=== PATIENT | female | born 1960 | race American Indian/Alaskan Native ===

== ENCOUNTER 2016-11-03 01:30 | Inpatient (IN) | payer OTHER, BC ==
[2016-11-03 01:57] VITALS: BMI 27.9
--- NOTE | 2016-11-03 02:30 | ED PDOC ---
Arrival/HPI - General Chief Complaint: Psychiatric Evaluation Time Seen by Provider: 11/03/16 02:29 Historian: Patient - History of Present Illness Narrative History of Present Illness (Text): 11/03/16 02:30 Saida Linares is a 56 year old female, whose past medical history includes hypertension, diabetes, and depression, who presents to the ED complaining of depression. Patient states she has been depressed for a while and has been expressing suicidal ideation. Patient states she has been thinking about overdosing on her medication. Patient denies any homicidal ideation, fever, chills, chest pain, shortness of breath, nausea, vomiting, diarrhea, urinary symptoms, back pain, neck pain, headache, dizziness, or any other complaints. Time/Duration: Other (few days) Symptom Onset: Gradual Symptom Course: Unchanged Activities at Onset: Rest, Light Context: Home Past Medical History - Provider Review Nursing Documentation Reviewed: Yes - Infectious Disease Hx of Infectious Diseases: None - Tetanus Immunization Tetanus Immunization: Unknown - Cardiac Hx Hypertension: Yes - Pulmonary Hx Asthma: No - Neurological Hx Transient Ischemic Attacks (TIA): Yes - HEENT Hx HEENT Disorder: No - Renal Hx Renal Disorder: No - Endocrine/Metabolic Hx Endocrine Disorders: Yes Hx Diabetes Mellitus Type 2: Yes Other/Comment: thyroid nodule right side - Hematological/Oncological Hx Anemia: Yes (with transfusion) - Integumentary Hx Dermatological Disorder: No - Musculoskeletal/Rheumatological Hx Falls: No - Gastrointestinal Hx Gastrointestinal Disorders: Yes Hx Gastroesophageal Reflux: Yes - Genitourinary/Gynecological Hx Genitourinary Disorders: Yes Hx Urinary Tract Infection: Yes - Psychiatric Hx Anxiety: Yes Hx Depression: Yes Hx Substance Use: No - Surgical History Hx Section: Yes Hx Hysterectomy: Yes Other/Comment: toe surgery, - Anesthesia Hx Anesthesia: Yes Hx Anesthesia Reactions: Yes (difficulty awakening,combative) Hx Malignant Hyperthermia: No - Suicidal Assessment Feels Threatened In Home Enviroment: No Family/Social History - Physician Review Nursing Documentation Reviewed: Yes Family/Social History: No Known Family HX Smoking Status: Former Smoker Hx Alcohol Use: Yes (SOCIAL) Hx Substance Use: No Allergies/Home Meds Allergies/Adverse Reactions: Allergies acetaminophen [From Percocet] Adverse Reaction (Intermediate, Verified 11/03/16 18:36) VOMITING oxycodone HCl [From Percocet] Adverse Reaction (Intermediate, Verified 11/03/16 18:36) VOMITING Home Medications: Home Meds Medication Instructions Recorded Confirmed cloNIDine 0.2 mg/24 hr 1 patch TOP QD7 10/17/16 11/03/16 [catapres-TTS2 0.2 mg/24 hr] Insulin Glargine, Recombina 30 units SQ DAILY 11/03/16 11/03/16 [Lantus] Insulin Lispro [humALOG] 1 2000 SQ DAILY 11/03/16 11/03/16 Telmisartan/Amlodipine [Twynsta 1 tab PO DAILY 11/03/16 11/03/16 80-5 mg Tablet] Review of Systems - Physician Review All systems were reviewed & negative as marked: Yes - Review of Systems Constitutional: Normal. absent: Fevers Eyes: Normal ENT: Normal Respiratory: Normal. absent: SOB, Cough Cardiovascular: Normal. absent: Chest Pain Gastrointestinal: Normal. absent: Abdominal Pain, Diarrhea, Nausea, Vomiting Genitourinary Female: Normal. absent: Dysuria, Frequency, Hematuria, Urine Output Changes Musculoskeletal: Normal. absent: Back Pain, Neck Pain Skin: Normal. absent: Rash Neurological: Normal. absent: Headache, Dizziness Endocrine: Normal Hemo/Lymphatic: Normal Psychiatric: Depression, Suicidal Ideation Physical Exam Vital Signs Reviewed: Yes Vital Signs Temp Pulse Resp BP Pulse Ox 11/03/16 05:34 79 14 154/95 H 99 11/03/16 02:00 98 F 83 16 125/95 H 98 Temperature: Afebrile Blood Pressure: Normal Pulse: Regular Respiratory Rate: Normal Appearance: Positive for: Well-Appearing, Non-Toxic, Comfortable Pain Distress: None Mental Status: Positive for: Alert and Oriented X 3 - Systems Exam Head: Present: Atraumatic, Normocephalic Pupils: Present: PERRL Extroacular Muscles: Present: EOMI Conjunctiva: Present: Normal Mouth: Present: Moist Mucous Membranes Neck: Present: Normal Range of Motion Respiratory/Chest: Present: Clear to Auscultation, Good Air Exchange. No: Respiratory Distress, Accessory Muscle Use Cardiovascular: Present: Regular Rate and Rhythm, Normal S1, S2. No: Murmurs Abdomen: Present: Normal Bowel Sounds. No: Tenderness, Distention, Peritoneal Signs Back: Present: Normal Inspection Upper Extremity: Present: Normal Inspection. No: Cyanosis, Edema Lower Extremity: Present: Normal Inspection. No: Edema Neurological: Present: GCS=15, CN II-XII Intact, Speech Normal Skin: Present: Warm, Dry, Normal Color. No: Rashes Psychiatric: Present: Alert, Oriented x 3, Normal Insight, Normal Concentration Medical Decision Making ED Course and Treatment: 11/03/16 02:30 Impression: 56 year old female complaining of depression with suicidal ideation. Differential Diagnosis include but are not limited to: depression Plan: -- EKG -- Chest X-ray -- Labs, alcohol level -- Urinalysis, urine drug screen -- Reassess and disposition Prior Visits: Notes and results from previous visits were reviewed. On 10/17/2016, pt was seen in the ED for anterior chest wall pain. Pt admitted to the hospital for further evaluation. Progress Notes: Reviewed EKG, NSR at [address] bpm[address] Non-specific ST/T wave changes. 11/03/16 03:30 Reviewed labs, negative tox screen, alcohol < 10. Reviewed radiology, Chest X-ray shows no active disease. Pt medically cleared for PES evaluation. 11/03/16 05:11 Pt seen and evaluated by PES worker Roxanne, who discussed case with psychiatrist medical office receptionist assistant. Pt will be admitted to Behavioral Health for major depressive disorder. Pt in stable condition. Pt agreeable with plan. - Lab Interpretations Lab Results: 11/03/16 02:40 11/03/16 02:40 Lab Results 11/03/16 02:40: WBC 6.7, RBC 4.51, Hgb 12.4, Hct 36.8, MCV 81.6, MCH 27.5, MCHC 33.7, RDW 13.4, Plt Count 241, MPV 10.3, Gran % 54.8, Lymph % (Auto) 32.6, [place] % (Auto) 8.6 H, Eos % (Auto) 3.4, Baso % (Auto) 0.6, Gran # 3.69, Lymph # 2.2, [place] # 0.6, Eos # 0.2, Baso # 0.04, Sodium 137, Potassium 4.1, Chloride 97, Carbon Dioxide 29, Anion Gap 15, BUN 16, Creatinine 0.7, Est GFR ( Amer) > 60, Est GFR (Non-Af Amer) > 60, Random Glucose 279 H, Calcium 9.3, Total Bilirubin 0.5, AST 21, ALT 17, Alkaline Phosphatase 133, Total Protein 7.5, Albumin 4.0, Globulin 3.5, Albumin/Globulin Ratio 1.2, Urine Color Yellow, Urine Appearance Clear, Urine pH 6.5, Ur Specific [place] 1.015, Urine Protein Negative, Urine Glucose (UA) >=1000, Urine Ketones Negative, Urine Blood Negative, Urine Nitrate Negative, Urine Bilirubin Negative, Urine Urobilinogen 0.2, Ur Leukocyte Esterase Negative, Salicylates < 1 L, Urine Opiates Screen Negative, Urine Methadone Screen Negative, Acetaminophen < 10.0 L, Ur Barbiturates Screen Negative, Ur Phencyclidine Scrn Negative, Ur Amphetamines Screen Negative, U Benzodiazepines Scrn Negative, U Oth Cocaine Metabols Negative, U Cannabinoids Screen Negative, Alcohol, Quantitative < 10 I have reviewed the lab results: Yes - RAD Interpretation Radiology Orders: 11/03/16 02:36 CHEST PORTABLE [RAD] Stat Toucher Up: ED Physician - EKG Interpretation Interpreted by ED Physician: Yes Type: 12 lead EKG - Medication Orders Current Medication Orders: Amlodipine Besylate (Norvasc) 10 mg PO DAILY [facility] Last Admin: 11/05/16 08:30 Dose: 10 MG MAR Pulse and Blood Pressure Document 11/05/16 08:30 RGO (Rec: 11/05/16 08:30 RGO [id number]) Pulse Pulse Rate (60-90) 79 Blood Pressure Blood Pressure (100/60-150/90) 120/78 Atorvastatin Calcium (Lipitor) 20 mg PO DIN [facility] Last Admin: 11/05/16 17:05 Dose: 20 MG Clonidine HCl (Catapres-Tts2 0.2 Mg/24 Hr) 1 patch TD Q7D@1000 [facility] Last Admin: 11/05/16 20:19 Dose: Duloxetine HCl (Cymbalta) 40 mg PO DAILY [facility] Insulin Detemir (Levemir) 35 unit SC HS [facility] Last Admin: 11/05/16 23:36 Dose: 35 UNIT Subcutaneous Administrations Document 11/05/16 23:36 [facility] (Rec: 11/05/16 23:36 LV [id number]) Injection Site MAR Injection Site Right Arm Charges for Administration # of Subcutaneous Administrations 1 Insulin Lispro Protam/Lispro Human (Humalog Mix 75/25) 18 units SC ACBD [facility] Lorazepam (Ativan) 0.5 mg PO AMHS [facility] PRN Reason: Protocol Last Admin: 11/05/16 22:02 Dose: 0.5 MG Behavioural Document 11/05/16 22:02 LV (Rec: 11/05/16 22:02 [id number] Maintenance Maintenance Dose Yes Re-Assess: Reassess Psych Meds Document 11/05/16 23:02 TW (Rec: 11/05/16 23:24 TW [id number]) Reassess Psych Med Effective Losartan Potassium (Cozaar) 100 mg PO DAILY [facility] Last Admin: 11/05/16 08:29 Dose: 100 MG Pregabalin (Lyrica) 100 mg PO [facility] Last Admin: 11/05/16 22:02 Dose: 100 MG Trazodone HCl (Desyrel) 50 mg PO [facility] Last Admin: 11/05/16 22:02 Dose: 50 MG Discontinued Medications Amlodipine Besylate (Norvasc) 5 mg PO DAILY [facility] Last Admin: 11/03/16 11:12 Dose: 5 MG MAR Pulse and Blood Pressure Document 11/03/16 11:12 RGO (Rec: 11/03/16 11:13 RGO [id number]) Pulse Pulse Rate (60-90) 82 Blood Pressure Blood Pressure (100/60-150/90) 163/105 Duloxetine HCl (Cymbalta) 20 mg PO DAILY [facility] Last Admin: 11/04/16 08:31 Dose: 20 MG Duloxetine HCl (Cymbalta) 30 mg PO DAILY [facility] Last Admin: 11/05/16 08:31 Dose: 30 MG Home Med (*Refrigerator Open) Confirm Administered Dose 1 unit XX .STK-MED ONE Stop: 11/03/16 06:11 Insulin Detemir (Levemir) 30 unit SC [facility] Last Admin: 11/04/16 22:17 Dose: 30 UNIT Subcutaneous Administrations Document 11/04/16 22:17 DCP (Rec: 11/04/16 22:17 DCP [id number]) Charges for Administration # of Subcutaneous Administrations 1 Insulin Human Lispro (Humalog) 15 units SC DAILY [facility] Last Admin: 11/03/16 11:13 Dose: 15 UNITS Subcutaneous Administrations Document 11/03/16 11:13 RGO (Rec: 11/03/16 11:13 RGO [id number]) Injection Site MAR Injection Site Left Deltoid Charges for Administration # of Subcutaneous Administrations 1 Insulin Lispro Protam/Lispro Human (Humalog Mix 75/25) 10 units SC ACBD [facility] Last Admin: 11/05/16 17:07 Dose: 10 UNIT MAR Blood Glucose Document 11/05/16 17:07 RGO (Rec: 11/05/16 17:08 RGO [id number]) Blood Glucose Finger Stick Blood Glucose (70-120) 283 Subcutaneous Administrations Document 11/05/16 17:07 RGO (Rec: 11/05/16 17:08 RGO [id number]) Injection Site MAR Injection Site Left Deltoid Charges for Administration # of Subcutaneous Administrations 1 Lorazepam (Ativan) 0.5 mg PO TID [facility] PRN Reason: Protocol Last Admin: 11/04/16 14:20 Dose: Not Given Non-Admin Reason: Patient Asleep Zolpidem Tartrate (Ambien) 5 mg PO STAT [facility] PRN Reason: Protocol Stop: 11/05/16 01:44 Last Admin: 11/05/16 01:51 Dose: 5 MG Behavioural Document 11/05/16 01:51 MB (Rec: 11/05/16 01:51 MB [id number]) Maintenance Maintenance Dose Yes Re-Assess: Reassess Psych Meds Document 11/05/16 02:51 MB (Rec: 11/05/16 03:08 MB [id number]) Reassess Psych Med Effective - Scribe Statement The provider has reviewed the documentation as recorded by the Shiva Ortiz Provider Attestation: All medical record entries made by the Stefaniibdeepak were at my direction and personally dictated by me. I have reviewed the chart and agree that the record accurately reflects my personal performance of the history, physical exam, medical decision making, and the department course for this patient. I have also personally directed, reviewed, and agree with the discharge instructions and disposition. Disposition/Present on Arrival - Present on Arrival Any Indicators Present on Arrival: No History of DVT/PE: No History of Uncontrolled Diabetes: Yes Urinary Catheter: No History of Decub. Ulcer: No History Surgical Site Infection Following: None - Disposition Have Diagnosis and Disposition been Completed?: Yes Diagnosis: Depression Disposition: HOSPITALIZED Disposition Time: 05:10 Condition: GOOD
[2016-11-03 02:46] LABS: ADD MANUAL DIFF? NO
[2016-11-03 02:50] LABS: BASO # 0.04 [, K/mm3] (0.0-2.0); BASO % 0.6 % (0.0-3.0); EOS # 0.2 (0.0-0.7); EOS % 3.4 % (1.5-5.0); GRAN # 3.69 (1.4-6.5); GRAN % 54.8 % (50.0-68.0); HEMATOCRIT 36.8 % (36.0-48.0); LYMPH # 2.2 (1.2-3.4); LYMPH % 32.6 % (22.0-35.0); MEAN CELL VOLUME 81.6 fL (80.0-105.0); MEAN CORPUSCULAR HEMOGLOBIN 27.5 pg (25.0-35.0); MEAN CORPUSCULAR HGB CONC 33.7 g/dl (31.0-37.0); MEAN PLATELET VOLUME 10.3 fl (7.0-11.0); MONO # 0.6 (0.1-0.6); MONO % 8.6 % (1.0-6.0); PH,URINE 6.5 (4.7-8.0); PLATELET COUNT 241 [, 10^3/uL] (120.0-450.0); RED CELL DISTRIBUTION WIDTH 13.4 % (11.5-14.5); URINE BILIRUBIN NEGATIVE (NEGATIVE); URINE BLOOD NEGATIVE (NEGATIVE); URINE GLUCOSE (UA) >=1000 mg/dL (NEGATIVE); URINE KETONE NEGATIVE (NEGATIVE); URINE LEUKOCYTE ESTERASE NEGATIVE Leu/uL (NEGATIVE); URINE PROTEIN NEGATIVE mg/dL (<30 mg/dL); URINE UROBILINOGEN 0.2 E.U./dL (<1 E.U./dL); WHITE BLOOD COUNT 6.7 [, 10^3/ul] (4.5-11.0)
[2016-11-03 03:00] LABS: URINE APPEARANCE CLEAR (CLEAR); URINE COLOR YELLOW (YELLOW)
[2016-11-03 03:04] LABS: ALB/GLOB RATIO 1.2 (1.1-1.8); ALKALINE PHOSPHATASE 133 U/L (38-133); ALT/SGPT 17 U/L (7-56); AST/SGOT 21 U/L (15-39); BILIRUBIN,TOTAL 0.5 mg/dL (0.2-1.3); BLOOD UREA NITROGEN 16 mg/dL (7-21); CALCIUM 9.3 mg/dL (8.4-10.5); CARBON DIOXIDE 29 mmol/L (21-33); CHLORIDE 97 mmol/L (95-110); GFR AFRICAN-AMERICAN > 60; GLUCOSE,RANDOM 279 mg/dL (70-110); POTASSIUM 4.1 mmol/L (3.6-5.0); SODIUM 137 mmol/L (132-148); TOTAL PROTEIN 7.5 g/dL (5.8-8.3)
[2016-11-03 05:35] VITALS: O2SAT 99
[2016-11-03 09:02] LABS: CHOLESTEROL 241 mg/dL (130-200)
--- NOTE | 2016-11-03 09:19 | RAD ---
HISTORY: pes COMPARISON: 05/26/2016 FINDINGS: LUNGS: No active pulmonary disease. PLEURA: No significant pleural effusion identified, no pneumothorax apparent. CARDIOVASCULAR: Normal. OSSEOUS STRUCTURES: No significant abnormalities. VISUALIZED UPPER ABDOMEN: Normal. OTHER FINDINGS: None. IMPRESSION: No active disease.
[2016-11-03 09:50] LABS: THYROID STIMULATING HORMONE 1.63 mIU/mL (0.46-4.68)
[2016-11-03] MEDS ORDERED: Insulin Lispro 1 UNITS/0.01 ML SC SCH (10:45)
--- NOTE | 2016-11-03 13:04 | CARD ---
APPROVED REPORT EKG Measurement Heart [id number] <Conclusion> Normal sinus rhythm Voltage criteria for left ventricular hypertrophy Nonspecific T wave abnormality Abnormal ECG
--- NOTE | 2016-11-03 13:20 | CON ---
DATE: 11/03/2016 The patient is a 56-year-old, known to me from multiple previous admissions. She came to Emergency R [facility]om feeling very depressed, suicidal thoughts. The patient states she has been depressed lately dania use of some marital problems at home. Denies any fever or chills. No nausea, vomiting, no diarrhea, no shortness of breath. No urine or bowel problem. Complained of dizzy at times, complained of hea dache at times when she does not sleep well. PAST MEDICAL HISTORY: Significant for: 1. Hypertension. 2. Insulin-dependent diabetes. 3. Hyperlipidemia. The patient was admitted back in 05/2016. At that point, she had stress test done that was unremarka ble. The patient also has history of gastritis and she had endoscopy done in 05/2016, done by Dr. Iban ko, shows mild chronic active gastritis, negative for H. pylori infection. She has gastroesophageal junction epithelium showing mild chronic inflammation, no intestinal metaplasia. ALLERGIES: SHE IS ALLERGIC TO ACETAMINOPHEN AND OXYCODONE. MEDICATIONS AT HOME: She is on telmisartan and amlodipine. She is on clonidine 0.2 every 24 hours. She is on insulin, Lantus 30 units daily. She is on Lyrica 100 mg at bedtime and Humalog as accordi ng to her carb intake. SOCIAL HISTORY: She socially drinks. She was a heavy former smoker. She is , but there are some marital issues. Her was interested in some other woman and there was some court case go ing on and patient does not want to talk about that. PHYSICAL EXAMINATION: GENERAL: She is sleepy, but arousable. VITAL SIGNS: She is afebrile, pulse 82, respirations 20, blood pressure 163/105. LUNGS: Bilateral good airflow, no rhonchi or crackle. HEART: S1, S2 audible. No murmur. ABDOMEN: Soft, nontender, no rebound, no guarding. NEUROLOGIC: She is awake and alert, communicative. LABORATORY EXAMINATION: WBCs 6.7, hemoglobin 12.4, hematocrit 36.8, platelet of 241. Chemistry: So dium 137, potassium 4.1, chloride 97, CO2 29, BUN 16, creatinine 0.7, blood sugar of 251. Her choles terol is 241, LDL is 140. Urinalysis is negative. Urine tox is negative. ASSESSMENT: 1. Depression with suicidal thoughts. 2. Insulin-dependent diabetes. 3. Hypertension. 4. Hyperlipidemia. PLAN: We will start patient on losartan 100 mg daily, amlodipine 10 mg daily and I will start her on fingerstick and start her on her coverage, monitor her blood sugar closely and psych medication will be adjusted by psychiatrist. Goldie Bowen MD cc: [id number] TT: 11/03/2016 13:20:22 Confirmation # [id number] Dictation # [id number]
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
[2016-11-03] MEDS: Insulin Lispro (humaLOG) MIX 75/25(10 ml) SC SCH (17:14)
[2016-11-03] MEDS: Insulin Detemir 100 units/ml Vial (Levemir) SC SCH (22:00)
[2016-11-04] MEDS: Insulin Lispro (humaLOG) MIX 75/25(10 ml) SC SCH ×2 (08:31→17:12)
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
[2016-11-04] MEDS: Insulin Detemir 100 units/ml Vial (Levemir) SC SCH (22:17)
--- NOTE | 2016-11-05 01:52 | CP.PCM.PN ---
Subjective - Date & Time of Evaluation Date of Evaluation: 11/05/16 Time of Evaluation: 01:52 - Subjective Subjective: S:Patient was seen when she was standing by the nursing station. She is requesting a sleeping pill. Has no other complaints. Inspite of receiving ativan 0.5 mg and seroquel , she has not been able to fall asleep. Pertinent medical record was reviewed. O: Last Vital Signs 3 Temp 97.6 F 11/04/16 06:00 Pulse 100 H 11/04/16 16:00 Resp 20 11/04/16 06:00 BP 122/85 11/04/16 16:00 Pulse Ox 99 11/03/16 05:34 Awake, alert, not in distress. Ambulating. LUNGS:Normal breathing pattern. NEURO:Speech normal. A:Adjustment insomnia. P:Ambien 5 mg PO x 1. Objective - Vital Signs/Intake and Output Vital Signs (last 24 hours): Temp Pulse Resp BP Pulse Ox 97.6 F 100 H 20 122/85 99 11/04/16 06:00 11/04/16 16:00 11/04/16 06:00 11/04/16 16:00 11/03/16 05:34 - Medications Medications: Current Medications Amlodipine Besylate (Norvasc) 10 mg PO DAILY [facility] Last Admin: 11/04/16 08:30 Dose: 10 mg Atorvastatin Calcium (Lipitor) 20 mg PO DIN [facility] Last Admin: 11/04/16 17:12 Dose: 20 mg Clonidine HCl (Catapres-Tts2 0.2 Mg/24 Hr) 1 patch TD Q7D@1000 [facility] Duloxetine HCl (Cymbalta) 30 mg PO DAILY [facility] Insulin Detemir (Levemir) 30 unit SC HS [facility] Last Admin: 11/04/16 22:17 Dose: 30 unit Insulin Lispro Protam/Lispro Human (Humalog Mix 75/25) 10 units SC ACBD [facility] Last Admin: 11/04/16 17:12 Dose: 10 unit Lorazepam (Ativan) 0.5 mg PO AMHS [facility] PRN Reason: Protocol Last Admin: 11/04/16 22:16 Dose: 0.5 mg Losartan Potassium (Cozaar) 100 mg PO DAILY [facility] Last Admin: 11/04/16 08:30 Dose: 100 mg Pregabalin (Lyrica) 100 mg PO HS [facility] Last Admin: 03/21/17 22:17 Dose: 100 mg Trazodone HCl (Desyrel) 50 mg PO [facility] Last Admin: 11/04/16 22:16 Dose: 50 mg
[2016-11-05] MEDS: Insulin Lispro (humaLOG) MIX 75/25(10 ml) SC SCH ×2 (08:30→17:07)
--- NOTE | 2016-11-05 15:05 | PCM.PYCHPN ---
Psychiatric Progress Note - Psychiatric Progress Note Patient seen today, length of contact: 30min Patient Chief Complaint: "I am little better, I didn't work on your assignment..." Problems Identified/Issues Discussed: Suicide/ homicide prevention, past psychiatric h/o, current psychiatric symptoms , medical problems, risk/benefits and alternatives of medications, medications compliance, coping strategies, substance abuse h/o, relapse prevention, importance of follow up with psychiatrist and therapist, discharge plan. Medical Problems: DM, HTN, diabetic neuropathy Diagnostic Results: 11/03/16 02:40 11/03/16 02:40 Lab Results 11/04/16 11:48: POC Glucose (mg/dL) 150 H 11/04/16 07:34: POC Glucose (mg/dL) 144 H 11/03/16 21:19: POC Glucose (mg/dL) 244 H 11/03/16 16:13: POC Glucose (mg/dL) 217 H 11/03/16 11:17: POC Glucose (mg/dL) 251 H 11/03/16 08:50: Triglycerides 171 H, Cholesterol 241 H, LDL Cholesterol Direct 140 H, HDL Cholesterol 47, Free T4 1.00, TSH 3rd Generation 1.63, RPR Nonreactive 11/03/16 08:02: POC Glucose (mg/dL) 203 H 11/03/16 02:40: WBC 6.7, RBC 4.51, Hgb 12.4, Hct 36.8, MCV 81.6, MCH 27.5, MCHC 33.7, RDW 13.4, Plt Count 241, MPV 10.3, Gran % 54.8, Lymph % (Auto) 32.6, [place] % (Auto) 8.6 H, Eos % (Auto) 3.4, Baso % (Auto) 0.6, Gran # 3.69, Lymph # 2.2, [place] # 0.6, Eos # 0.2, Baso # 0.04, Sodium 137, Potassium 4.1, Chloride 97, Carbon Dioxide 29, Anion Gap 15, BUN 16, Creatinine 0.7, Est GFR ( Amer) > 60, Est GFR (Non-Af Amer) > 60, Random Glucose 279 H, Calcium 9.3, Total Bilirubin 0.5, AST 21, ALT 17, Alkaline Phosphatase 133, Total Protein 7.5, Albumin 4.0, Globulin 3.5, Albumin/Globulin Ratio 1.2, Urine Color Yellow, Urine Appearance Clear, Urine pH 6.5, Ur Specific [place] 1.015, Urine Protein Negative, Urine Glucose (UA) >=1000, Urine Ketones Negative, Urine Blood Negative, Urine Nitrate Negative, Urine Bilirubin Negative, Urine Urobilinogen 0.2, Ur Leukocyte Esterase Negative, Salicylates < 1 L, Urine Opiates Screen Negative, Urine Methadone Screen Negative, Acetaminophen < 10.0 L, Ur Barbiturates Screen Negative, Ur Phencyclidine Scrn Negative, Ur Amphetamines Screen Negative, U Benzodiazepines Scrn Negative, U Oth Cocaine Metabols Negative, U Cannabinoids Screen Negative, Alcohol, Quantitative < 10 Vital Signs Temp Pulse Resp BP Pulse Ox 11/04/16 08:30 81 141/85 11/04/16 06:00 97.6 F 81 20 141/85 11/03/16 11:12 82 163/105 H 11/03/16 08:02 98.1 F 82 20 163/105 H 11/03/16 05:34 79 14 154/95 H 99 11/03/16 02:00 98 F 83 16 125/95 H 98 Temp Pulse Resp BP Pulse Ox 97.8 F 79 20 120/78 99 11/05/16 07:04 11/05/16 10:59 11/05/16 07:04 11/05/16 10:59 11/03/16 05:34 DSM 5 Symptoms Update: Shortly patient is 56 years old -Danish female, 1 previous psychiatric admission [facility] in May, no history of suicidal attempts, multiple medical issues including diabetes, neuropathy, hysterectomy, brought herself to the hospital for evaluation of depression, feeling of hopelessness, anhedonia, possible suicidal ideation with the plan to overdose on medications. Pt was seen at the hallway presented with improved personal hygiene, wears street clothes, combed her hair. pt's affect was more reactive, pt was not crying. 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 Pt reported her mood is slowly improving, she has some hopes for the future, she reported that she decided to move out of her house and separate from her . "It will be better for all of us", at the same time pt cannot exclude that may be they will look for family sessions in the future, but "for now I want to be in nice and quiet environment". pt denied any intent or plan to hurt self or others, occasionally angry feelings towards her , but no plan or intent. as per staff, pt is withdrawn, more visible in the unit, started to go to groups. self isolating, flat affect. Pt tolerates meds well, no side effects observed or reported. AIMS 0, no EPS. impression: DSM 5 Diagnosis: MDD severe Panic disorder ARNULFO Medication Change: Yes (cymbalta increased) Medical Record Reviewed: Yes Consults ordered or reviewed: pt was seen by medical team. Mental Status Examination - Cognitive Function Orientation: Person, Place, Situation Memory: Intact Attention: Poor (some improvement) Concentration: Poor (some improvement) Association: WNL Fund of Knowledge: WNL - Mood Mood: Depressed, Anxious - Affect Affect: Blunted, Flat - Speech Speech: Appropriate (low volume, slow, underproductive) - Formal Thought Process Formal Thought Process: No Impairment - Suicidal Ideation Suicidal Ideation: No - Homicidal Ideation Homicidal Ideation: No Goal/Treatment Plan - Goal/Treatment Plan Need for Continued Stay: Remain at risks for inpatient hospitalization, Severe depression anxiety, Discharge may exacerbated symptoms, Severe functional impairment Progress Toward Problem(s) and Goals/Treatment Plan: milieu, structure, supportive therapy Cymbalta 40mg daily for MDD and anxiety and neuropathy Trazodone 50mg po hs for insomnia and MDD ativan 0.5mg po tid for anxiety medical consult appreciated SW evalutaion Lyrica 100 mg PO HS for neuropathy the rest of meds up to medical team. will monitor closely Estimated Date of D/C: 11/10/16 (will evaluate on daily basis)
--- NOTE | 2016-11-05 21:04 | PN ---
DATE: 11/05/2016 The patient is patient is 56 years old, seen and examined. Seems to be a little more bright and up. Does not seem to be as depressed, doing well. VITAL SIGNS: She is afebrile, pulse 79, respirations 20, blood pressure 112/67. LUNGS: Bilateral good airflow. No rhonchi or crackle. HEART: S1, S2 audible. No murmur. ABDOMEN: Soft, nontender, no rebound, no guarding. NEUROLOGICALLY: The patient is awake and alert, communicative, ambulatory. Blood sugar was at 12 o'clock 262; in the afternoon it is 283. ASSESSMENT AND PLAN: 1. Major depression secondary to some marital problems. 2. Insulin-dependent diabetes. 3. Hypertension. 4. Hyperlipidemia. 5. Anxiety disorder. 6. Insulin-dependent diabetes, uncontrolled. PLAN: I will increase her insulin coverage from 10-15 prior to breakfast, and 18 units prior to tracey kfast and dinner, and also increase her Levemir also to 35 units at bedtime, and I will follow up blo od sugar closely, and reevaluate the patient in a.m. Psych medication will be adjusted by psychiatri st. Goldie Bowen MD cc: [phone] TT: 11/05/2016 21:03:58 Confirmation # [id number] Dictation # [id number] nadira
[2016-11-05] MEDS: Insulin Detemir 100 units/ml Vial (Levemir) SC SCH (23:36)
[2016-11-06] MEDS: Insulin Lispro (humaLOG) MIX 75/25(10 ml) SC SCH ×2 (08:49→17:08)
--- NOTE | 2016-11-06 12:11 | PCM.PYCHPN ---
Psychiatric Progress Note - Psychiatric Progress Note Patient seen today, length of contact: 30min Patient Chief Complaint: "I feel little better now" Problems Identified/Issues Discussed: Suicide/ homicide prevention, past psychiatric h/o, current psychiatric symptoms , medical problems, risk/benefits and alternatives of medications, medications compliance, coping strategies, substance abuse h/o, relapse prevention, importance of follow up with psychiatrist and therapist, discharge plan. Medical Problems: DM, HTN, diabetic neuropathy Diagnostic Results: 11/03/16 02:40 11/03/16 02:40 Lab Results 11/04/16 11:48: POC Glucose (mg/dL) 150 H 11/04/16 07:34: POC Glucose (mg/dL) 144 H 11/03/16 21:19: POC Glucose (mg/dL) 244 H 11/03/16 16:13: POC Glucose (mg/dL) 217 H 11/03/16 11:17: POC Glucose (mg/dL) 251 H 11/03/16 08:50: Triglycerides 171 H, Cholesterol 241 H, LDL Cholesterol Direct 140 H, HDL Cholesterol 47, Free T4 1.00, TSH 3rd Generation 1.63, RPR Nonreactive 11/03/16 08:02: POC Glucose (mg/dL) 203 H 11/03/16 02:40: WBC 6.7, RBC 4.51, Hgb 12.4, Hct 36.8, MCV 81.6, MCH 27.5, MCHC 33.7, RDW 13.4, Plt Count 241, MPV 10.3, Gran % 54.8, Lymph % (Auto) 32.6, [place] % (Auto) 8.6 H, Eos % (Auto) 3.4, Baso % (Auto) 0.6, Gran # 3.69, Lymph # 2.2, [place] # 0.6, Eos # 0.2, Baso # 0.04, Sodium 137, Potassium 4.1, Chloride 97, Carbon Dioxide 29, Anion Gap 15, BUN 16, Creatinine 0.7, Est GFR ( Amer) > 60, Est GFR (Non-Af Amer) > 60, Random Glucose 279 H, Calcium 9.3, Total Bilirubin 0.5, AST 21, ALT 17, Alkaline Phosphatase 133, Total Protein 7.5, Albumin 4.0, Globulin 3.5, Albumin/Globulin Ratio 1.2, Urine Color Yellow, Urine Appearance Clear, Urine pH 6.5, Ur Specific [place] 1.015, Urine Protein Negative, Urine Glucose (UA) >=1000, Urine Ketones Negative, Urine Blood Negative, Urine Nitrate Negative, Urine Bilirubin Negative, Urine Urobilinogen 0.2, Ur Leukocyte Esterase Negative, Salicylates < 1 L, Urine Opiates Screen Negative, Urine Methadone Screen Negative, Acetaminophen < 10.0 L, Ur Barbiturates Screen Negative, Ur Phencyclidine Scrn Negative, Ur Amphetamines Screen Negative, U Benzodiazepines Scrn Negative, U Oth Cocaine Metabols Negative, U Cannabinoids Screen Negative, Alcohol, Quantitative < 10 Vital Signs Temp Pulse Resp BP Pulse Ox 11/04/16 08:30 81 141/85 11/04/16 06:00 97.6 F 81 20 141/85 11/03/16 11:12 82 163/105 H 11/03/16 08:02 98.1 F 82 20 163/105 H 11/03/16 05:34 79 14 154/95 H 99 11/03/16 02:00 98 F 83 16 125/95 H 98 Temp Pulse Resp BP Pulse Ox 97.8 F 79 20 120/78 99 11/05/16 07:04 11/05/16 10:59 11/05/16 07:04 11/05/16 10:59 11/03/16 05:34 Temp Pulse Resp BP Pulse Ox 98.3 F 87 20 123/75 99 11/06/16 10:15 11/06/16 10:15 11/06/16 10:15 11/06/16 10:15 11/03/16 05:34 DSM 5 Symptoms Update: Shortly patient is 56 years old -[place] female, 1 previous psychiatric admission [facility] in May, no history of suicidal attempts, multiple medical issues including diabetes, neuropathy, hysterectomy, brought herself to the hospital for evaluation of depression, feeling of hopelessness, anhedonia, possible suicidal ideation with the plan to overdose on medications. Pt was seen at the hallway presented with improved personal hygiene, wears street clothes, combed her hair. pt's affect was more reactive, pt was smiling more, pt said that medications what she is taking "helping me very much", pt denied any aggressive feelings towards her , pt said "at times I have feeing of anger, but I don't want to hurt him, I know the consequences, I love my kids and I want to get better". Pt said that her sleep still is not good, pt was on ambien one night, house physician gave it to the pt, pt willing to be on Ambien. Pt reported her mood is slowly improving, she has some hopes for the future, she reported that she decided to move out of her house and separate from her . As per staff pt started to go to groups, more visible in the unit. Pt tolerates meds well, no side effects observed or reported. AIMS 0, no EPS. impression: DSM 5 Diagnosis: MDD severe Panic disorder ARNULFO Medication Change: Yes (ambien started, trazodon d/c) Medical Record Reviewed: Yes Consults ordered or reviewed: pt was seen by medical team. Mental Status Examination - Cognitive Function Orientation: Person, Place, Situation Memory: Intact Attention: Poor (some improvement) Concentration: Poor (some improvement) Association: WNL Fund of Knowledge: WNL - Mood Mood: Depressed ("I feel little better"), Anxious - Affect Affect: Blunted, Flat - Speech Speech: Appropriate (low volume, slow, underproductive) - Formal Thought Process Formal Thought Process: No Impairment - Suicidal Ideation Suicidal Ideation: No - Homicidal Ideation Homicidal Ideation: No Goal/Treatment Plan - Goal/Treatment Plan Need for Continued Stay: Remain at risks for inpatient hospitalization, Severe depression anxiety, Discharge may exacerbated symptoms, Severe functional impairment Progress Toward Problem(s) and Goals/Treatment Plan: milieu, structure, supportive therapy Cymbalta 40mg daily for MDD and anxiety and neuropathy Trazodone d/c Ambien 5mg hs for insomnia ativan 0.5mg po tid for anxiety medical consult appreciated SW evalutaion Lyrica 100 mg PO HS for neuropathy the rest of meds up to medical team. will monitor closely Estimated Date of D/C: 11/10/16 (will evaluate on daily basis)
--- NOTE | 2016-11-06 20:37 | PN ---
DATE: 11/06/2016 The patient is 56 years old, seen and examined. Seems to be much interactive, eating well. States s he feels better than before. PHYSICAL EXAMINATION: VITAL SIGNS: She is afebrile, pulse 87, respirations 20, blood pressure 123/75. LUNGS: Bilateral good airflow, no rhonchi or crackle. HEART: S1, S2 audible. No murmur. ABDOMEN: Soft, nontender, no rebound, no guarding. NEUROLOGIC: She is awake and alert, communicative, ambulatory. ASSESSMENT AND PLAN: 1. Depression. 2. Hypertension. 3. Hyperlipidemia. 4. Insulin-dependent diabetes. 5. Anxiety disorder. Her blood sugar seems to be better. This morning it was 136, in the afternoon it was 199. We will m onitor the evening range and then I will make adjustment in the morning to adjust her insulin accordi ng to her sugar level. I will evaluate patient in a.m. Goldie Bowen MD cc: [phone] TT: 11/06/2016 20:37:06 Confirmation # [id number] Dictation # [id number] sn
[2016-11-06] MEDS: Insulin Detemir 100 units/ml Vial (Levemir) SC SCH (23:21)
[2016-11-07] MEDS: Insulin Lispro (humaLOG) MIX 75/25(10 ml) SC SCH ×2 (09:17→17:29)
--- NOTE | 2016-11-07 12:46 | PN ---
DATE: 11/07/2016 SUBJECTIVE: The patient is a 56-year-old, seen and examined, sitting in chair, comfortable, more par ticipating, more happy and bright, denies any significant complaint. PHYSICAL EXAMINATION: VITAL SIGNS: She is afebrile, pulse 82, respirations 18, blood pressure 129/82. LUNGS: Bilateral fair airflow, no rhonchi or crackle. HEART: S1, S2 audible. No murmur. ABDOMEN: Soft, nontender, no rebound, no guarding. NEUROLOGIC: She is awake and alert, communicative. Moves all extremities. LABORATORY EXAM: Her blood sugar this morning was 129, afternoon is 216. ASSESSMENT: 1. Depression, mixed with anxiety features. 2. Hypertension. 3. Hyperlipidemia. 4. Insulin-dependent diabetes. PLAN: The patient is on 35 units Levemir in the morning and she is receiving 18 units of Humalog, I will change it to 20 to better control her diabetes and I will follow up her sugar pattern and make further adjustment. Goldie Bowen MD cc: [phone] TT: 11/07/2016 12:46:12 Confirmation # [id number] Dictation # [id number] nadira
--- NOTE | 2016-11-07 16:08 | PCM.PYCHPN ---
Psychiatric Progress Note - Psychiatric Progress Note Patient seen today, length of contact: 30min Patient Chief Complaint: "I feel little better, but I'm not ssleeping steel" Problems Identified/Issues Discussed: Suicide/ homicide prevention, past psychiatric h/o, current psychiatric symptoms , medical problems, risk/benefits and alternatives of medications, medications compliance, coping strategies, substance abuse h/o, relapse prevention, importance of follow up with psychiatrist and therapist, discharge plan. Medical Problems: DM, HTN, diabetic neuropathy Diagnostic Results: 11/03/16 02:40 11/03/16 02:40 Lab Results 11/04/16 11:48: POC Glucose (mg/dL) 150 H 11/04/16 07:34: POC Glucose (mg/dL) 144 H 11/03/16 21:19: POC Glucose (mg/dL) 244 H 11/03/16 16:13: POC Glucose (mg/dL) 217 H 11/03/16 11:17: POC Glucose (mg/dL) 251 H 11/03/16 08:50: Triglycerides 171 H, Cholesterol 241 H, LDL Cholesterol Direct 140 H, HDL Cholesterol 47, Free T4 1.00, TSH 3rd Generation 1.63, RPR Nonreactive 11/03/16 08:02: POC Glucose (mg/dL) 203 H 11/03/16 02:40: WBC 6.7, RBC 4.51, Hgb 12.4, Hct 36.8, MCV 81.6, MCH 27.5, MCHC 33.7, RDW 13.4, Plt Count 241, MPV 10.3, Gran % 54.8, Lymph % (Auto) 32.6, [place] % (Auto) 8.6 H, Eos % (Auto) 3.4, Baso % (Auto) 0.6, Gran # 3.69, Lymph # 2.2, [place] # 0.6, Eos # 0.2, Baso # 0.04, Sodium 137, Potassium 4.1, Chloride 97, Carbon Dioxide 29, Anion Gap 15, BUN 16, Creatinine 0.7, Est GFR ( Amer) > 60, Est GFR (Non-Af Amer) > 60, Random Glucose 279 H, Calcium 9.3, Total Bilirubin 0.5, AST 21, ALT 17, Alkaline Phosphatase 133, Total Protein 7.5, Albumin 4.0, Globulin 3.5, Albumin/Globulin Ratio 1.2, Urine Color Yellow, Urine Appearance Clear, Urine pH 6.5, Ur Specific [place] 1.015, Urine Protein Negative, Urine Glucose (UA) >=1000, Urine Ketones Negative, Urine Blood Negative, Urine Nitrate Negative, Urine Bilirubin Negative, Urine Urobilinogen 0.2, Ur Leukocyte Esterase Negative, Salicylates < 1 L, Urine Opiates Screen Negative, Urine Methadone Screen Negative, Acetaminophen < 10.0 L, Ur Barbiturates Screen Negative, Ur Phencyclidine Scrn Negative, Ur Amphetamines Screen Negative, U Benzodiazepines Scrn Negative, U Oth Cocaine Metabols Negative, U Cannabinoids Screen Negative, Alcohol, Quantitative < 10 Vital Signs Temp Pulse Resp BP Pulse Ox 11/04/16 08:30 81 141/85 11/04/16 06:00 97.6 F 81 20 141/85 11/03/16 11:12 82 163/105 H 11/03/16 08:02 98.1 F 82 20 163/105 H 11/03/16 05:34 79 14 154/95 H 99 11/03/16 02:00 98 F 83 16 125/95 H 98 Temp Pulse Resp BP Pulse Ox 97.8 F 79 20 120/78 99 11/05/16 07:04 11/05/16 10:59 11/05/16 07:04 11/05/16 10:59 11/03/16 05:34 Temp Pulse Resp BP Pulse Ox 98.3 F 87 20 123/75 99 11/06/16 10:15 11/06/16 10:15 11/06/16 10:15 11/06/16 10:15 11/03/16 05:34 DSM 5 Symptoms Update: Shortly patient is 56 years old -[place] female, 1 previous psychiatric admission [facility] in May, no history of suicidal attempts, multiple medical issues including diabetes, neuropathy, hysterectomy, brought herself to the hospital for evaluation of depression, feeling of hopelessness, anhedonia, possible suicidal ideation with the plan to overdose on medications. Pt was seen the treatment team meeting, wears street clothes, combed her hair, presented to have flat affect, seems to be depressed still. patient reported that she doesn't feel ready to be discharged, patient still has some irritability towards her but no aggressive feelings no feelings of hurting him or herself. Patient seems to be more hopeful for the future, patient wants to move out from the house where they used to leave, patient wants to file for divorce,patient was advised to look for family sessions and family therapy patient is willing to do so. Pt said that her sleep still is not good, Ambien will be increased today Pt reported her mood is slowly improving, patient willing to increase Cymbalta to 60 mg daily. As per staff pt started to go to groups, more visible in the unit. Pt tolerates meds well, no side effects observed or reported. AIMS 0, no EPS. impression: DSM 5 Diagnosis: MDD severe Panic disorder ARNULFO Medication Change: Yes (Ambien increased Cymbalta increased) Medical Record Reviewed: Yes Consults ordered or reviewed: pt was seen by medical team. Mental Status Examination - Cognitive Function Orientation: Person, Place, Situation Memory: Intact Attention: Poor (some improvement) Concentration: Poor (some improvement) Association: WNL Fund of Knowledge: WNL - Mood Mood: Depressed ("I feel little better"), Anxious - Affect Affect: Blunted, Flat - Speech Speech: Appropriate (low volume, slow, underproductive) - Formal Thought Process Formal Thought Process: No Impairment - Suicidal Ideation Suicidal Ideation: No - Homicidal Ideation Homicidal Ideation: No Goal/Treatment Plan - Goal/Treatment Plan Need for Continued Stay: Remain at risks for inpatient hospitalization, Severe depression anxiety, Discharge may exacerbated symptoms, Severe functional impairment Progress Toward Problem(s) and Goals/Treatment Plan: milieu, structure, supportive therapy Cymbalta 60mg daily for MDD and anxiety and neuropathy Trazodone d/c Ambien 10mg hs for insomnia ativan 0.5mg po tid for anxiety medical consult appreciated SW evalutaion Lyrica 100 mg PO HS for neuropathy the rest of meds up to medical team. will monitor closely Estimated Date of D/C: 11/10/16 (will evaluate on daily basis)
[2016-11-07] MEDS: Insulin Detemir 100 units/ml Vial (Levemir) SC SCH (22:19)
--- NOTE | 2016-11-08 08:53 | PCM.PYCHPN ---
Psychiatric Progress Note - Psychiatric Progress Note Patient seen today, length of contact: 25 min Patient Chief Complaint: better Problems Identified/Issues Discussed: I reviewed assessment and recent notes. Patient was interviewed at bedside. Patient is calm, cooperative and oriented during questioning. Appears comfortable. Patient reports that she is feeling better. She is polite with fair focus and eye contact. Her affect shows moderate range with reactivity. Patient has been tolerating her medications and denies any issues regarding regarding them. Currently she denies any new discomfort or pain. Staff notes indicate that patient has been cooperative, at times helpful to peers. There were no behavioral issues overnight. Diagnostic Results: MDD severe Panic disorder ARNULFO Medication Change: No ( ) Medical Record Reviewed: Yes (notes, reports, labs, vitals) Mental Status Examination - Cognitive Function Orientation: Person, Place, Situation Memory: Intact Attention: Poor (some improvement) Concentration: Poor (some improvement) Association: WNL Fund of Knowledge: WNL - Mood Mood: Depressed ("I feel little better"), Anxious - Affect Affect: Blunted, Flat - Speech Speech: Appropriate (low volume, slow, underproductive) - Formal Thought Process Formal Thought Process: No Impairment - Suicidal Ideation Suicidal Ideation: No - Homicidal Ideation Homicidal Ideation: No Goal/Treatment Plan - Goal/Treatment Plan Need for Continued Stay: Remain at risks for inpatient hospitalization, Severe depression anxiety, Discharge may exacerbated symptoms, Severe functional impairment Progress Toward Problem(s) and Goals/Treatment Plan: * c/w current tx and plan * No new weekend labs * Vitals reviewed and noted below: Selected Entries 11/08/16 08:47 Temperature 97.8 F Pulse Rate 100 H Respiratory 17 Rate Blood Pressure 143/90 Estimated Date of D/C: 11/10/16 (will evaluate on daily basis)
[2016-11-08] MEDS: Insulin Lispro (humaLOG) MIX 75/25(10 ml) SC SCH ×2 (09:07→16:58)
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
[2016-11-09 07:33] VITALS: RESP 20
--- NOTE | 2016-11-09 08:44 | PCM.PYCHPN ---
Psychiatric Progress Note - Psychiatric Progress Note Patient seen today, length of contact: 25 min Patient Chief Complaint: better Problems Identified/Issues Discussed: I reviewed recent notes and met with patient at bedside. Patient remains calm, cooperative and well-oriented during questioning. Appears comfortable. Patient consistently reports improvement in symptoms over the weekend. She is polite with fair focus and eye contact. Her affect shows moderate range with reactivity. Denies SI or thoughts to harm others including her . Patient has been tolerating her medications and denies any issues regarding regarding them. Currently she denies any new discomfort or pain. Sleeping "okay". Staff notes indicate that patient has been cooperative and appears to be doing better. Observed to have positive interactions with her during visits. There were no behavioral issues over the weekend. Diagnostic Results: MDD severe Panic disorder ARNULFO Medication Change: No ( ) Medical Record Reviewed: Yes (notes, reports, labs, vitals) Mental Status Examination - Cognitive Function Orientation: Person, Place, Situation Memory: Intact Attention: Poor (some improvement) Concentration: Poor (some improvement) Association: WNL Fund of Knowledge: WNL - Mood Mood: Depressed ("I feel little better"), Anxious - Affect Affect: Blunted, Flat, Other (moderate range with reactivity) - Speech Speech: Appropriate (low volume, slow, underproductive) - Formal Thought Process Formal Thought Process: No Impairment - Suicidal Ideation Suicidal Ideation: No - Homicidal Ideation Homicidal Ideation: No Goal/Treatment Plan - Goal/Treatment Plan Need for Continued Stay: Remain at risks for inpatient hospitalization, Severe depression anxiety, Discharge may exacerbated symptoms, Severe functional impairment Progress Toward Problem(s) and Goals/Treatment Plan: * c/w current tx and plan * Appreciate f/u by Dr. Bowen 11/08/16~plan to monitor blood sugar and make further recommendations * No new weekend labs * Vitals reviewed and noted below: Selected Entries 11/09/16 11/09/16 02:28 07:32 Temperature 98.3 F Pulse Rate 111 H 95 H Respiratory 20 Rate Blood Pressure 138/90 170/99 H Estimated Date of D/C: 11/10/16 (will evaluate on daily basis)
[2016-11-09] MEDS: Insulin Lispro (humaLOG) MIX 75/25(10 ml) SC SCH ×2 (09:01→16:25)
--- NOTE | 2016-11-09 17:49 | PN ---
DATE: 11/09/2016 SUBJECTIVE: The patient is a 56-year-old, seen and examined, doing well. No chest pain, no shortnes s of breath, seems to be less depressed participating more in activity. PHYSICAL EXAMINATION: VITAL SIGNS: He is afebrile, pulse 95, respirations 20, blood pressure 179/ . LUNGS: Bilateral good airflow, no rhonchi or crackle. HEART: S1, S2 audible. No murmur. ABDOMEN: Soft, nontender, no rebound, no guarding. NEUROLOGIC: She is awake and alert, communicative, ambulatory. LABORATORY: Today, morning, blood sugar was 114 and before lunch is 106. ASSESSMENT AND PLAN: 1. Major depression, seems to be improving. 2. Hypertension. 3. Hyperlipidemia. 4. Insulin-dependent diabetes. Blood sugar reviewed and found to be appropriate. We will continue current medication. Discharge plan for a.m. Goldie Bowen MD cc: [phone] TT: 11/09/2016 17:48:58 Confirmation # [id number] Dictation # [id number] loly
[2016-11-09] MEDS: Insulin Detemir 100 units/ml Vial (Levemir) SC SCH (23:06)
[2016-11-10] MEDS: Insulin Detemir 100 units/ml Vial (Levemir) SC SCH (06:02)
[2016-11-10 07:41] VITALS: BP 146/93; PULSE 99; TEMP 98.1
[2016-11-10] MEDS: Insulin Lispro (humaLOG) MIX 75/25(10 ml) SC SCH (09:18)
--- NOTE | 2016-11-10 13:26 | PN ---
DATE: 11/10/2016 SUBJECTIVE: The patient is 56 years old, seen and examined. Doing well, ambulating, anxious to go h ome. PHYSICAL EXAMINATION: VITAL SIGNS: She is afebrile, pulse 99, respirations 20, blood pressure 146/93. LUNGS: Bilateral good airflow, no rhonchi or crackle. HEART: S1, S2 audible. No murmur. ABDOMEN: Soft, nontender, no rebound, no guarding. NEUROLOGIC: The patient is awake and alert, communicative, ambulatory. LABORATORY: Blood sugar is 171, hand bunch maker was 143. ASSESSMENT AND PLAN: 1. Insulin-dependent diabetes. 2. Hypertension. 3. Hyperlipidemia. 4. Anxiety disorder. 5. Major depression seems to be stable. The patient is, medical point of view, stable and can be discharged if stable with psych point of bryn shane. Goldie Bowen MD cc: [phone] TT: 11/10/2016 13:25:01 Confirmation # [id number] Dictation # [id number] sn
--- NOTE | 2016-11-10 14:32 | PCM.PYCHDC ---
Mental Status Examination - Mental Status Examination Orientation: Person, Place, Situation, Time Memory: Intact Mood: Neutral Affect: Constricted (but reactive mood congruent) Speech: Appropriate Attention: WNL Concentration: WNL Association: WNL Fund of Knowledge: WNL Formal Thought Process: No Impairment Description of patient's judgement and insight: Pt has improved insight into mental and medical illness, pt was compliant with medications and unit rules and regulations, pt was going to groups, was calm, cooperative, socially appropriate, no behavioral incidents, no agitation, no aggression. Psychotic Thoughts and Behaviors: Pt denied v/a/t hallucinations, denied paranoid ideations, pt does not appear to be psychotic, and thought process is goal directed. Suicidal Ideation: No Current Homicidal Ideation?: No Plan: pt adamantly denied thoughts of harming self or others denied intent or plan. Discharge Summary - Discharge Note Reason for Hospitalization: patient was admitted to the psychiatric inpatient unit for evaluation of worsening depression, inability to function, anxiety, anhedonia, possible suicidal ideation with the plan to OD on meds. Psychiatric History (includes Medical, Family, Personal Hx): See HPI Laboratory Data: Abnormal Lab Results 11/09/16 11/09/16 11/10/16 16:42 22:02 07:19 POC Glucose (mg/dL) 196 H 121 H 143 H 11/10/16 11:44 POC Glucose (mg/dL) 171 H Consultations:: List each consultation separately and include: 1. Reason for request. 2. Findings. 3. Follow-up Consultations: pt was seen by medical team. she notes for more detailed information Summary of Hospital Course include:: 1. Description of specific treatment plan utilized for patients during their course of treatmen. 2. Summarize the time- course for resolution of acute symptoms and/or regressed behaviors. 3. Describe issues identified and worked on during hospitalization. 4. Describe medication utilized. 5. Describe medical problems identified and treated. 6. Reassessment of suicide risk Summary of Hospital Course: Shortly patient is 56 years old -Armenian female, 1 previous psychiatric admission [facility] in May, no history of suicidal attempts, multiple medical issues including diabetes, neuropathy, hysterectomy, brought herself to the hospital for evaluation of depression, feeling of hopelessness, anhedonia, possible suicidal ideation with the plan to overdose on medications. Pt was seen at the treatment team meeting, presented to have fair personal hygiene, good ADLs, but flat affect, appears to be severely depressed, pt obviously has difficulties to stay focused, was keep asking "what did you say?" . pt has some psychomotor retardation. Pt said after d/c from psych inpatient unit where she staid for 2 days only in May 2016 (pt requested to be d/c back then), pt followed up with , but did not look for marital counseling (pt's had an affair in 2014). Pt was prescribed Prozac, but was not found to be effective. Pt said she still works two jobs, but has difficulties to concentrate, perform at job "recently it was worse", pt also said she had difficulties to fall asleep and to stay asleep, feeling of hopelessness and helplessness, as well as anhedonia "I lost my ceci, nothing is making me happy". Pt reported to have poor appetite and sleep. Pt was reluctant to discuss suicidal ideation and plan, but as per ED PES evaluation pt had a plan to overdose on meds, was carrying bottles of pills on her. Lunesta, trazodone, Percocet, Xanax. patient was just tearful when was asked about her SI. Pt denied V/A/T hallucinations, but in ED said that she wants to "stop that noises". Pt reported at times she has angry feelings towards her but denied any intent or plan to hurt him. 11/03/16 02:40 11/03/16 02:40 Lab Results 11/03/16 11:17: POC Glucose (mg/dL) 251 H 11/03/16 08:50: Triglycerides 171 H, Cholesterol 241 H, LDL Cholesterol Direct 140 H, HDL Cholesterol 47, Free T4 1.00, TSH 3rd Generation 1.63 11/03/16 08:02: POC Glucose (mg/dL) 203 H 11/03/16 02:40: WBC 6.7, RBC 4.51, Hgb 12.4, Hct 36.8, MCV 81.6, MCH 27.5, MCHC 33.7, RDW 13.4, Plt Count 241, MPV 10.3, Gran % 54.8, Lymph % (Auto) 32.6, [place] % (Auto) 8.6 H, Eos % (Auto) 3.4, Baso % (Auto) 0.6, Gran # 3.69, Lymph # 2.2, [place] # 0.6, Eos # 0.2, Baso # 0.04, Sodium 137, Potassium 4.1, Chloride 97, Carbon Dioxide 29, Anion Gap 15, BUN 16, Creatinine 0.7, Est GFR ( Amer) > 60, Est GFR (Non-Af Amer) > 60, Random Glucose 279 H, Calcium 9.3, Total Bilirubin 0.5, AST 21, ALT 17, Alkaline Phosphatase 133, Total Protein 7.5, Albumin 4.0, Globulin 3.5, Albumin/Globulin Ratio 1.2, Urine Color Yellow, Urine Appearance Clear, Urine pH 6.5, Ur Specific Gregory 1.015, Urine Protein Negative, Urine Glucose (UA) >=1000, Urine Ketones Negative, Urine Blood Negative, Urine Nitrate Negative, Urine Bilirubin Negative, Urine Urobilinogen 0.2, Ur Leukocyte Esterase Negative, Salicylates < 1 L, Urine Opiates Screen Negative, Urine Methadone Screen Negative, Acetaminophen < 10.0 L, Ur Barbiturates Screen Negative, Ur Phencyclidine Scrn Negative, Ur Amphetamines Screen Negative, U Benzodiazepines Scrn Negative, U Oth Cocaine Metabols Negative, U Cannabinoids Screen Negative, Alcohol, Quantitative < 10 Vital Signs Temp Pulse Resp BP Pulse Ox 11/03/16 11:12 82 163/105 H 11/03/16 08:02 98.1 F 82 20 163/105 H 11/03/16 05:34 79 14 154/95 H 99 11/03/16 02:00 98 F 83 16 125/95 H 98 patient was stabilized on the following medications: Cymbalta 60 mg daily for major depressive disorder as well as diabetes neuropathy as well as anxiety Ambien 10 mg at the nighttime for insomnia Ativan 2 mg twice a day 0.5 mg for anxiety Patient tolerated medications well, no side effects observed or reported, no EPS , aims 0 pt was seen by medical team received notes for more detailed information Over the course of this hospitalization pt was attending groups, pt also had medication management, had therapeutic milieu. Overall pt improved significantly, pt's affect became brighter, pt was less depressed, has realistic future oriented plans (patient wants to separate from her , willing to have family sessions, patient was to apply for medical leave, possible intensive outpatient program) anxiety is much better, pts insight improved as well and soon pt deemed to be ready for discharge. At the time of the discharge pt denied been depressed, denied thoughts of harming self or others, denied psychotic symptoms, and pt does not appeared to be psychotic, denied been anxious, was considered to pose no threat to self or others, will be following up at 's office, information about follow up appointment, time and address provided to the pt, it is patient responsibility to follow up with outpatient clinic, PMD as well as specialists (see SW note for more detailed information). In case pt will need to obtain results of studies pending at discharge pt was provided with contact information of Psychiatric Inpatient unit [phone] as well as Medical Record Department [phone]. this information writer provided with prescriptions for all psychotropic meds (please see medication reconciliation form) pt said that she has enough meds for her DM, HTN and dyslipidemia at home. Pt was educated about safety plan in case of worsening of symptoms or in case of suicidal or homicidal ideation call 911 or go to the nearest ER, also was educated to take meds as prescribed and stay away from drugs, pt verbalized understanding. - Diagnosis (1) Major depressive disorder, single episode, severe without psychosis Current Visit: No Status: Acute (2) PTSD (post-traumatic stress disorder) Current Visit: No Status: Acute (3) ARNULFO (generalized anxiety disorder) Current Visit: Yes Status: Acute (4) Panic disorder Current Visit: Yes Status: Acute - Final Diagnosis (DSM 5) Condition upon Discharge: GOOD Disposition: HOME/ ROUTINE Follow-up Treatment Plan: At the time of the discharge pt denied been depressed, denied thoughts of harming self or others, denied psychotic symptoms, and pt does not appeared to be psychotic, denied been anxious, was considered to pose no threat to self or others, will be following up at 's office, information about follow up appointment, time and address provided to the pt, it is patient responsibility to follow up with outpatient clinic, PMD as well as specialists (see SW note for more detailed information). In case pt will need to obtain results of studies pending at discharge pt was provided with contact information of Psychiatric Inpatient unit [phone] as well as Medical Record Department [phone]. this information writer provided with prescriptions for all psychotropic meds (please see medication reconciliation form) pt said that she has enough meds for her DM, HTN and dyslipidemia at home. Pt was educated about safety plan in case of worsening of symptoms or in case of suicidal or homicidal ideation call 911 or go to the nearest ER, also was educated to take meds as prescribed and stay away from drugs, pt verbalized understanding. Prescriptions/Medication Reconciliation: Zolpidem Tartrate [Ambien] 10 mg PO HS #14 tablet Lorazepam [Ativan] 0.5 mg PO AMHS #30 tab Losartan [Cozaar] 100 mg PO DAILY #1 tab DULoxetine [Cymbalta] 60 mg PO DAILY #14 ecc Insulin Lispro Mix 75/25 [HumaLOG Mix 75/25] 20 units SC ACBD #1 ml Insulin Detemir [Levemir] 35 unit SC HS #1 unit Atorvastatin [Lipitor] 20 mg PO DIN #1 tab Pregabalin [Lyrica] 100 mg PO HS #1 cap amLODIPine [Norvasc] 10 mg PO DAILY #1 tab Telmisartan/Amlodipine [Twynsta 80-5 mg Tablet] 1 tab PO DAILY #1 tablet - Smoking Cessation Smoking Cessation Medication prescribed: No Reason for not providing: patient doesn't smoke - Antipsychotic Medications Pt discharged on 2 or more routine antipsychotic medications: No
== END 2016-11-10 16:00 | disposition home or self-care (01) | DRG 885 ==
LOC: ED 01:30 → ERH 05:53 → PSYC 06:21
PROVIDERS: ADMIT Psychiatry & Neurology Psychiatry; ATTEND Psychiatry & Neurology Psychiatry
PROC: GZ3ZZZZ Medication Management (ICD-10-PCS; principal; 2016-11-03)
DX: F32.2 Major depressive disorder, single episode, severe without psychotic features (principal); F41.0 Panic disorder [episodic paroxysmal anxiety]; F43.10 Post-traumatic stress disorder, unspecified; F41.1 Generalized anxiety disorder; E11.40 Type 2 diabetes mellitus with diabetic neuropathy, unspecified; E11.65 Type 2 diabetes mellitus with hyperglycemia; I10 Essential (primary) hypertension; E78.5 Hyperlipidemia, unspecified; K29.50 Unspecified chronic gastritis without bleeding; F51.02 Adjustment insomnia; G47.00 Insomnia, unspecified; Z79.4 Long term (current) use of insulin; Z63.0 Problems in relationship with spouse or partner

== ENCOUNTER 2016-11-25 01:19 | Observation (INO) | payer OTHER, BC ==
[2016-11-25 01:30] VITALS: BMI 28.3
[2016-11-25 02:35] LABS: HEMATOCRIT 35.5 % (36.0-48.0); MEAN CELL VOLUME 81.1 fL (80.0-105.0); MEAN CORPUSCULAR HEMOGLOBIN 27.6 pg (25.0-35.0); MEAN CORPUSCULAR HGB CONC 34.1 g/dl (31.0-37.0); MEAN PLATELET VOLUME 10.4 fl (7.0-11.0); RED CELL DISTRIBUTION WIDTH 13.8 % (11.5-14.5); WHITE BLOOD COUNT 8.8 10^3/ul (4.5-11.0)
--- NOTE | 2016-11-25 02:39 | ED PDOC ---
Arrival/HPI - General Chief Complaint: Chest Pain Time Seen by Provider: 11/25/16 01:46 Historian: Patient - History of Present Illness Narrative History of Present Illness (Text): 11/25/16 02:37 Saida Linares is a 56 year old female, with a history of hypertension on Twynsta, diabetes, and Heller's Esophagus, presents to the emergency department complaining of 1 day duration of intermittent chest pain. Reports quality as pressure to the chest which is not improved or worsened with movement and position. Denies any shortness of breath. Denies fever, chills, headache, dizziness, nausea, vomiting, diarrhea, or any other complaints at this time. Time/Duration: 24 hours Symptom Onset: Gradual Symptom Course: Intermittent Severity Level: Mild Activities at Onset: Light Context: Home Past Medical History - Provider Review Nursing Documentation Reviewed: Yes - Infectious Disease Hx of Infectious Diseases: None - Tetanus Immunization Tetanus Immunization: Unknown - Cardiac Hx Hypertension: Yes - Pulmonary Hx Asthma: No - Neurological Hx Transient Ischemic Attacks (TIA): Yes - HEENT Hx HEENT Disorder: No - Renal Hx Renal Disorder: No - Endocrine/Metabolic Hx Endocrine Disorders: Yes Hx Diabetes Mellitus Type 2: Yes Other/Comment: thyroid nodule right side - Hematological/Oncological Hx Anemia: Yes (with transfusion) - Integumentary Hx Dermatological Disorder: No - Musculoskeletal/Rheumatological Hx Falls: No - Gastrointestinal Hx Gastrointestinal Disorders: Yes Hx Gastroesophageal Reflux: Yes - Genitourinary/Gynecological Hx Genitourinary Disorders: Yes Hx Urinary Tract Infection: Yes - Psychiatric Hx Anxiety: Yes Hx Depression: Yes Hx Substance Use: No - Surgical History Hx Section: Yes Hx Hysterectomy: Yes Other/Comment: toe surgery, - Anesthesia Hx Anesthesia: Yes Hx Anesthesia Reactions: Yes (difficulty awakening,combative) Hx Malignant Hyperthermia: No - Suicidal Assessment Feels Threatened In Home Enviroment: No Family/Social History - Physician Review Nursing Documentation Reviewed: Yes Family/Social History: No Known Family HX Smoking Status: Former Smoker Hx Alcohol Use: Yes (SOCIAL) Hx Substance Use: No Allergies/Home Meds Allergies/Adverse Reactions: Allergies acetaminophen [From Percocet] Adverse Reaction (Intermediate, Verified 11/27/16 23:30) VOMITING oxycodone HCl [From Percocet] Adverse Reaction (Intermediate, Verified 11/27/16 23:30) VOMITING Review of Systems - Physician Review All systems were reviewed & negative as marked: Yes - Review of Systems Constitutional: Normal. absent: Fatigue, Fevers ENT: absent: Hearing Changes Respiratory: Normal. absent: SOB, Cough, Sputum Cardiovascular: Chest Pain. absent: Palpitations Gastrointestinal: Normal. absent: Abdominal Pain, Diarrhea, Nausea, Vomiting Neurological: Normal. absent: Headache, Dizziness Psychiatric: Normal Physical Exam Vital Signs Reviewed: Yes Vital Signs Temp Pulse Resp BP Pulse Ox 11/25/16 05:19 80 16 145/85 97 11/25/16 05:05 171/99 H 11/25/16 04:20 101 H 169/113 H 11/25/16 04:00 92 H 18 193/105 H 98 11/25/16 03:20 89 20 163/96 H 97 11/25/16 01:29 98.1 F 96 H 14 157/86 H 98 Temperature: Afebrile Blood Pressure: Hypertensive Pulse: Tachycardic Respiratory Rate: Normal Appearance: Positive for: Well-Appearing, Non-Toxic, Comfortable Pain Distress: None Mental Status: Positive for: Alert and Oriented X 3 - Systems Exam Head: Present: Atraumatic, Normocephalic Pupils: Present: PERRL Extroacular Muscles: Present: EOMI Conjunctiva: Present: Normal Respiratory/Chest: Present: Clear to Auscultation, Good Air Exchange. No: Respiratory Distress, Accessory Muscle Use Cardiovascular: Present: Regular Rate and Rhythm, Normal S1, S2. No: Murmurs Abdomen: Present: Normal Bowel Sounds. No: Tenderness, Distention, Peritoneal Signs Upper Extremity: Present: Normal Inspection. No: Cyanosis, Edema Lower Extremity: Present: Normal Inspection. No: Edema Neurological: Present: GCS=15, CN II-XII Intact, Speech Normal Skin: Present: Warm, Dry, Normal Color. No: Rashes Psychiatric: Present: Alert, Oriented x 3, Normal Insight, Normal Concentration Medical Decision Making ED Course and Treatment: 11/25/16 02:46 Impression: A 56 year old female who presents to the emergency department complaining of intermittent chest pain for 1 day. Plan: -- EKG -- Labs, cardiac enzymes -- Chest X-ray -- Reassess and disposition Progress Note 11/25/16 06:03 EKG interpreted by me: NSR @ 98 bpm. Non specific T wave changes. Case discussed with Dr. Bowen who is aware and agrees with the plan to admit patient to hospital for chest pain. Accepts patient under her service. - Lab Interpretations Lab Results: 11/25/16 01:45 11/25/16 01:45 Lab Results 11/25/16 01:45: WBC 8.8 D, RBC 4.38, Hgb 12.1, Hct 35.5 L, MCV 81.1, MCH 27.6, MCHC 34.1, RDW 13.8, Plt Count 225, MPV 10.4, PT 10.3, INR 0.95, APTT 31.3 H, Sodium 137, Potassium 3.8, Chloride 96 L, Carbon Dioxide 31, Anion Gap 14, BUN 16, Creatinine 0.9, Est GFR ( Amer) > 60, Est GFR (Non-Af Amer) > 60, Random Glucose 316 H*, Calcium 8.9, Total Bilirubin 0.7, AST 36, ALT 36, Alkaline Phosphatase 115, Lactate Dehydrogenase 648, Total Creatine Kinase 105, Troponin I < 0.01, Total Protein 8.0, Albumin 4.0, Globulin 4.0, Albumin/ Globulin Ratio 1.0 L I have reviewed the lab results: Yes - RAD Interpretation Radiology Orders: 11/25/16 02:03 CHEST PORTABLE [RAD] Stat - EKG Interpretation Interpreted by ED Physician: Yes Type: 12 lead EKG - Medication Orders Current Medication Orders: Discontinued Medications Amlodipine Besylate (Norvasc) 5 mg PO DAILY [facility] Last Admin: 11/25/16 11:00 Dose: 5 MG Aspirin (Aspirin) 325 mg PO ONCE STA Stop: 11/25/16 02:49 Last Admin: 11/25/16 03:10 Dose: 325 MG Clonidine HCl (Catapres) 0.2 mg PO STAT STA Stop: 11/25/16 04:07 Last Admin: 11/25/16 04:20 Dose: 0.2 MG MAR Pulse and Blood Pressure Document 11/25/16 04:20 YP (Rec: 11/25/16 04:21 YP [id number]) Pulse Pulse Rate (60-90) 101 Blood Pressure Blood Pressure (100/60-150/90) 169/113 Home Med (*Refrigerator Open) Confirm Administered Dose 1 unit XX .STK-MED ONE Stop: 11/25/16 05:58 Home Med (*Refrigerator Open) Confirm Administered Dose 1 unit XX .STK-MED ONE Stop: 11/25/16 07:37 Insulin Human Lispro (Humalog Med) 0 units SC ACHS [facility] PRN Reason: Protocol Last Admin: 11/25/16 12:12 Dose: 8 UNITS MAR Blood Glucose Document 11/25/16 12:12 HD (Rec: 11/25/16 12:12 [place] [id number]) Blood Glucose Finger Stick Blood Glucose (70-120) 361 Subcutaneous Administrations Document 11/25/16 12:12 HD (Rec: 11/25/16 12:12 [place] [id number]) Injection Site MAR Injection Site Left Abdomen Charges for Administration # of Subcutaneous Administrations 1 Ketorolac Tromethamine (Toradol) 30 mg IVP STAT STA Stop: 11/25/16 10:49 Last Admin: 11/25/16 11:01 Dose: 30 MG MAR Pain Assessment Document 11/25/16 11:01 HD (Rec: 11/25/16 11:04 [place] [id number]) Pain Reassessment Is this a pain reassessment? No Sleep Is patient sleeping during reassessment? No Presence of Pain Presence of Pain No IVP Administration Document 11/25/16 11:01 HD (Rec: 11/25/16 11:04 [place] [id number]) Charges for Administration # of IVP Administrations 1 Re-Assess: MAR Pain Assessment Document 11/25/16 12:01 HD (Rec: 11/25/16 12:05 [place] [id number]) Pain Reassessment Is this a pain reassessment? Yes Sleep Is patient sleeping during reassessment? No Presence of Pain Presence of Pain No Losartan Potassium (Cozaar) 100 mg PO DAILY [facility] Last Admin: 11/25/16 11:00 Dose: 100 MG Metoprolol Tartrate (Lopressor) 25 mg PO BID [facility] Last Admin: 11/25/16 11:00 Dose: 25 MG Naproxen (Anaprox Ds) 550 mg PO BID [facility] Last Admin: 11/25/16 11:00 Dose: 550 MG - Scribe Statement The provider has reviewed the documentation as recorded by the Shiva Fuentes Provider Attestation: All medical record entries made by the Stefaniibdeepak were at my direction and personally dictated by me. I have reviewed the chart and agree that the record accurately reflects my personal performance of the history, physical exam, medical decision making, and the department course for this patient. I have also personally directed, reviewed, and agree with the discharge instructions and disposition. Disposition/Present on Arrival - Present on Arrival Any Indicators Present on Arrival: No History of DVT/PE: No History of Uncontrolled Diabetes: Yes Urinary Catheter: No History of Decub. Ulcer: No History Surgical Site Infection Following: None - Disposition Have Diagnosis and Disposition been Completed?: Yes Diagnosis: Chest pain Disposition: HOSPITALIZED Disposition Time: 03:35 Condition: GOOD
[2016-11-25 02:46] LABS: ALKALINE PHOSPHATASE 115 U/L (38-133); ALT/SGPT 36 U/L (7-56); AST/SGOT 36 U/L (15-39); BILIRUBIN,TOTAL 0.7 mg/dL (0.2-1.3); BLOOD UREA NITROGEN 16 mg/dL (7-21); CALCIUM 8.9 mg/dL (8.4-10.5); CARBON DIOXIDE 31 mmol/L (21-33); CHLORIDE 96 mmol/L (98-107); GFR AFRICAN-AMERICAN > 60; POTASSIUM 3.8 mmol/L (3.6-5.0); SODIUM 137 mmol/L (132-148)
[2016-11-25 02:51] LABS: INR 0.95 (0.93-1.08); PARTIAL THROMBOPLASTIN TIME 31.3 Seconds (23.7-30.8)
[2016-11-25 02:59] LABS: GLUCOSE,RANDOM 316 mg/dL (70-110)
[2016-11-25 03:00] LABS: TROPONIN I < 0.01 ng/mL
[2016-11-25 05:19] VITALS: O2SAT 97
[2016-11-25 06:31] VITALS: BP 154/95; PULSE 82; RESP 20; TEMP 98.2
--- NOTE | 2016-11-25 09:32 | CARD ---
APPROVED REPORT EKG Measurement Heart [id number] <Conclusion> Normal sinus rhythm Voltage criteria for left ventricular hypertrophy PRWP Nonspecific T wave abnormality Prolonged QT No change
--- NOTE | 2016-11-25 09:37 | RAD ---
HISTORY: pain COMPARISON: 11/03/2016 FINDINGS: LUNGS: No active pulmonary disease. PLEURA: No significant pleural effusion identified, no pneumothorax apparent. CARDIOVASCULAR: Normal. OSSEOUS STRUCTURES: No significant abnormalities. VISUALIZED UPPER ABDOMEN: Normal. OTHER FINDINGS: None. IMPRESSION: No active disease.
--- NOTE | 2016-11-25 10:56 | CON ---
DATE: 11/25/2016 SERVICE: Cardiology. REASON FOR DICTATION: Covering Dr. Arora. REASON FOR CONSULTATION: Chest pain, rule out underlying coronary artery disease. 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 Kavitha Arora. According to her, a stress test done in May, came in with chest pain, right-si ded. Denies any chest pain on exertion. PAST MEDICAL HISTORY: Significant for diabetes, hypertension, hyperlipidemia. SOCIAL HISTORY: Denies any smoking. Denies any history of alcohol abuse. PREVIOUS CARDIAC WORKUP: As follows: The patient had a cardiac catheterization by Dr. Arora date d 05/18/2014, was unremarkable coronary circulation, normal left ventricle function, essentially floridalma l coronaries and normal LV function, dated 05/18/2014 at [facility]. According to Dr. Arora' s note dated 10/17/2016 in [facility], the patient had a cardiac catheterization twice and found u nremarkable coronaries. The patient had a stress test in May that was essentially negative. Det ails are not available, but patient says a stress test is not reported, but it is marked 05/26/2016 t he patient had a stress test that was unremarkable. The patient had echocardiography done here at [facility] that showed ejection fraction 55%, trace aortic regurgitation, mild to moderate mitral regurgitation, trace to mild tricuspid regurgitation, RV systolic pressure 26. The patient had a st ress test here on 05/26/2016 again, done by Dr. Meyers and was read as a normal myocardial perfusion study, ejection fraction 57%. CURRENT MEDICATIONS: The patient is taking at home amlodipine 10 mg daily, Ambien 10 mg daily, Twyns ta is combination of ARB inhibitor and amlodipine, Lyrica, Cozaar, Ativan, Levemir, Cymbalta, Lipitor . ALLERGIES: ACETAMINOPHEN AND OXYCODONE. REVIEW OF SYSTEMS: As per HPI. PHYSICAL EXAMINATION: VITAL SIGNS: Temperature afebrile, heart rate 82, blood pressure 150/95. HEENT: PERRLA. Extraocular muscles intact. NECK: Supple. No carotid bruits. No thyromegaly. CHEST: Clear to auscultation. HEART: S1, S2 regular. ABDOMEN: Soft. EXTREMITIES: Clubbing, cyanosis negative. LABORATORY DATA: Blood workup as follows: WBC 8.8, hemoglobin , hematocrit 35.5, platelet coun t 225. Chemistry shows sodium 137, potassium , chloride 98, carbon dioxide 30, anion gap of 14, BUN 16, creatinine 0.9, blood sugar 316. Troponin 0.01. EKG shows normal sinus within normal limit s. IMPRESSION: Atypical chest pain, status post cardiac catheterization twice. Recent stress test 05/17 normal. Recent echo 05/26/2016 preserved LV function, mitral regurgitation, tricuspid regurgi tation. RECOMMENDATION: Add second set of troponin. If second set of troponin is negative, will discharge. Follow up with Dr. Arora. I discussed with Dr. Arora. He wanted me to see the patient for h im. He is not around. He will follow up as outpatient. Thank you, Dr. Bowen, for providing the opportunity in taking care of this patient. Nancy Schaffer MD cc:Goldie Bowen MD 305 TT: 11/25/2016 10:56:13 Confirmation # [id number] Dictation # [id number] melissa
[2016-11-25] MEDS ORDERED: Naproxen 550 mg Tab PO SCH (11:00)
[2016-11-25] MEDS ORDERED: Insulin Lispro (humaLOG) MEDIUM Coverage SC SCH (11:30)
--- NOTE | 2016-11-25 13:00 | HP ---
HISTORY OF PRESENT ILLNESS: The patient is a 56-year-old female, seen and examined. Came to [facility] because of chest pain, pressure like. Also complained of pain in both shoulders, pain in bot h hands. Since patient has multiple comorbidities, she was placed in observation. Denies any nausea or vomiting, no fever, no chills, no cough, no congestion. She is known to me from multiple previou s admissions. PAST MEDICAL HISTORY: She has significant past medical history of: 1. Depression. 2. Hypertension. 3. Non-insulin dependent diabetes. 4. Hyperlipidemia. 5. She had stress test done in May that was unremarkable. SOCIAL HISTORY: Denies smoking, drinking or alcohol use. The patient had cardiac cath done in 2013 and that was unremarkable. ALLERGIES: ACETAMINOPHEN AND OXYCODONE. MEDICATIONS AT HOME: She is on amlodipine 10 mg daily, zolpidem 10 mg at bedtime, telmisartan and am lodipine 80/5 daily, Lyrica 100 mg at bedtime, Cozaar 100 mg daily, Ativan 0.5 twice a day, Levemir 3 5 units at bedtime, Cymbalta 60 mg daily, Lipitor 20 mg in the evening. SOCIAL HISTORY: Drinks socially, used to be a smoker in the past. PHYSICAL EXAMINATION: GENERAL: She is awake and alert, communicative. Complaining of generalized stiffness in bilateral s houlders, chest area and bilateral hands. VITAL SIGNS: She is afebrile, pulse 82, respirations 20, blood pressure 150/95. LUNGS: Bilateral fair airflow, no rhonchi or crackle. HEART: S1, S2 audible. No murmur. ABDOMEN: Soft, obese, nontender, no rebound, no guarding. NEUROLOGIC: She is awake and alert, communicative and able to move all extremities, but with some pa in. LABORATORY DATA: WBC is 8.8, hemoglobin 12, hematocrit 35, platelets of 225. PT 10.3, INR 0.95, and PTT 31.3. Chemistry: Sodium 137, potassium 3.8, chloride 96, CO2 31, BUN 16, creatinine 0.9, blood sugar of 316, blood lipid profile is negative. LFTs are within normal limits. ASSESSMENT AND PLAN: 1. Known cardiac chest pain. 2. Hypertension. 3. Non-insulin dependent diabetes. 4. Hyperlipidemia. 5. History of depression. PLAN: We will give her a dose of Toradol and Naprosyn. She has 2 sets of troponins, they are negati ve. After she starts ambulating and pain improved, she can be discharged later on today. Goldie Bowen MD cc: [phone] TT: 11/25/2016 12:59:22 an
--- NOTE | 2016-12-19 13:27 | DS ---
The patient is a 56-year-old who was admitted with reproducible chest pain. Had 3 sets of cardiac en zymes which were negative. She was given Naprosyn with good results. Her pain improved, so she was discharged the same day she was admitted on 11/25/2016 and discharged the same day. She was recommen ded to follow up with a moss gatherer and continue on NSAIDs until she follows up with rheumatologis t for her rheumatological workup. So she will follow with her primary care physician as outpatient a nd she will follow with moss gatherer. . Goldie Bowen MD cc: [phone] TT: 12/19/2016 13:26:42 jn
== END 2016-11-25 14:11 | disposition home or self-care (01) ==
LOC: ED 01:19 → ERH 03:35 → 2RNO 05:56
PROVIDERS: ADMIT Internal Medicine; ATTEND Internal Medicine
DX: R07.89 Other chest pain (principal); K22.70 Barrett's esophagus without dysplasia; I10 Essential (primary) hypertension; E11.9 Type 2 diabetes mellitus without complications; E78.5 Hyperlipidemia, unspecified; F32.9 Major depressive disorder, single episode, unspecified; I08.1 Rheumatic disorders of both mitral and tricuspid valves; Z90.710 Acquired absence of both cervix and uterus; Z87.891 Personal history of nicotine dependence
CPT/HCPCS: 71010; 80053; 82550; 82948; 83615; 84484; 85027; 85610; 85730; 93005; 99285; G0378; J1885

== ENCOUNTER 2016-11-27 23:14 | Emergency (ER) | payer OTHER, BC ==
[2016-11-27 23:14] VITALS: BMI 28.3
[2016-11-27 23:35] VITALS: RESP 18; TEMP 98.8
--- NOTE | 2016-11-27 23:39 | ED PDOC ---
Arrival/HPI - General Chief Complaint: Psychiatric Evaluation Time Seen by Provider: 11/27/16 23:14 Historian: Patient - History of Present Illness Narrative History of Present Illness (Text): 11/27/16 23:38 This 56 yo female with pmh major depression, presents to this ED c/o depression with suicidal ideation x 2 days. Patient stated she has been having constant ideation to hurt herself. She stated she has multiple medication that she could use to overdose. Denies hallucination, sob, cp, urinary symptoms, or fever. Time/Duration: Other (2 days) Context: Home Past Medical History - Provider Review Nursing Documentation Reviewed: Yes - Infectious Disease Hx of Infectious Diseases: None - Tetanus Immunization Tetanus Immunization: Unknown - Cardiac Hx Hypertension: Yes - Pulmonary Hx Asthma: No - Neurological Hx Transient Ischemic Attacks (TIA): Yes - HEENT Hx HEENT Disorder: No - Renal Hx Renal Disorder: No - Endocrine/Metabolic Hx Endocrine Disorders: Yes Hx Diabetes Mellitus Type 2: Yes Other/Comment: thyroid nodule right side - Hematological/Oncological Hx Anemia: Yes (with transfusion) - Integumentary Hx Dermatological Disorder: No - Musculoskeletal/Rheumatological Hx Falls: No - Gastrointestinal Hx Gastrointestinal Disorders: Yes Hx Gastroesophageal Reflux: Yes - Genitourinary/Gynecological Hx Genitourinary Disorders: Yes Hx Urinary Tract Infection: Yes - Psychiatric Hx Anxiety: Yes Hx Depression: Yes Hx Substance Use: No - Surgical History Hx Section: Yes Hx Hysterectomy: Yes Other/Comment: toe surgery, - Anesthesia Hx Anesthesia: Yes Hx Anesthesia Reactions: Yes (difficulty awakening,combative) Hx Malignant Hyperthermia: No - Suicidal Assessment Feels Threatened In Home Enviroment: No Family/Social History - Physician Review Nursing Documentation Reviewed: Yes Family/Social History: No Known Family HX Smoking Status: Former Smoker Hx Alcohol Use: Yes (SOCIAL) Hx Substance Use: No Allergies/Home Meds Allergies/Adverse Reactions: Allergies acetaminophen [From Percocet] Adverse Reaction (Intermediate, Verified 11/27/16 23:30) VOMITING oxycodone HCl [From Percocet] Adverse Reaction (Intermediate, Verified 11/27/16 23:30) VOMITING Review of Systems - Review of Systems Constitutional: Normal. absent: Fatigue, Weight Change, Fevers Eyes: Normal ENT: Normal Respiratory: Normal. absent: SOB, Cough Cardiovascular: Normal. absent: Palpitations Gastrointestinal: Normal. absent: Abdominal Pain, Nausea, Vomiting Genitourinary Female: Normal. absent: Dysuria, Frequency, Hematuria Musculoskeletal: Normal Skin: Normal. absent: Rash Neurological: Normal. absent: Headache, Dizziness Endocrine: Normal Hemo/Lymphatic: Normal Psychiatric: Depression, Suicidal Ideation Physical Exam Vital Signs Temp Pulse Resp BP Pulse Ox 11/28/16 03:20 85 18 152/68 H 95 11/27/16 23:30 98.8 F 92 H 18 182/96 H 99 Temperature: Afebrile Blood Pressure: Normal Pulse: Regular Respiratory Rate: Normal Appearance: Positive for: Well-Appearing, Non-Toxic, Comfortable Pain Distress: None Mental Status: Positive for: Alert and Oriented X 3 - Systems Exam Head: Present: Atraumatic, Normocephalic Pupils: Present: PERRL Extroacular Muscles: Present: EOMI Conjunctiva: Present: Normal Mouth: Present: Moist Mucous Membranes Neck: Present: Normal Range of Motion Respiratory/Chest: Present: Clear to Auscultation, Good Air Exchange. No: Respiratory Distress, Accessory Muscle Use Cardiovascular: Present: Regular Rate and Rhythm, Normal S1, S2. No: Murmurs Abdomen: Present: Normal Bowel Sounds. No: Tenderness, Distention, Peritoneal Signs Back: Present: Normal Inspection Upper Extremity: Present: Normal Inspection. No: Cyanosis, Edema Lower Extremity: Present: Normal Inspection. No: Edema Neurological: Present: GCS=15, CN II-XII Intact, Speech Normal Skin: Present: Warm, Dry, Normal Color. No: Rashes Psychiatric: Present: Alert, Oriented x 3, Depressed Mood, Suicidal Ideation. No: Homicidal Ideation, Delusional, Hallucinations Medical Decision Making ED Course and Treatment: 11/28/16 01:59 Pending PES screener to arrive. Dr. Gutierrez is aware about this case. - Lab Interpretations Lab Results: 11/27/16 23:55 11/27/16 23:55 Lab Results 11/28/16 00:50: Urine Color Yellow, Urine Appearance Clear, Urine pH 6.0, Ur Specific [place] 1.010, Urine Protein Negative, Urine Glucose (UA) >=1000, Urine Ketones Negative, Urine Blood Trace-lysed H, Urine Nitrate Negative, Urine Bilirubin Negative, Urine Urobilinogen 0.2, Ur Leukocyte Esterase Negative , Urine RBC 0 - 2, Urine WBC 0 - 2, Ur Epithelial Cells 0 - 2, Urine Opiates Screen Negative, Urine Methadone Screen Negative, Ur Barbiturates Screen Negative, Ur Phencyclidine Scrn Negative, Ur Amphetamines Screen Negative, U Benzodiazepines Scrn Negative, U Oth Cocaine Metabols Negative, U Cannabinoids Screen Negative 11/28/16 00:36: POC Glucose (mg/dL) 405 H* 11/27/16 23:55: WBC 6.5 D, RBC 4.33, Hgb 11.9 L, Hct 35.2 L, MCV 81.3, MCH 27.5 , MCHC 33.8, RDW 13.8, Plt Count 207, MPV 9.9, Gran % 62.8, Lymph % (Auto) 24.7 , [place] % (Auto) 8.9 H, Eos % (Auto) 3.4, Baso % (Auto) 0.2, Gran # 4.09, Lymph # 1.6, [place] # 0.6, Eos # 0.2, Baso # 0.01, Sodium 134, Potassium 3.7, Chloride 94 L, Carbon Dioxide 31, Anion Gap 13, BUN 13, Creatinine 0.8, Est GFR ( Amer) > 60, Est GFR (Non-Af Amer) > 60, Random Glucose 415 H* D, Calcium 9.2, Total Bilirubin 0.6, AST 24, ALT 37, Alkaline Phosphatase 126, Total Protein 8.0 , Albumin 4.1, Globulin 3.9, Albumin/Globulin Ratio 1.1, Salicylates < 1 L, Acetaminophen < 10.0 L, Alcohol, Quantitative < 10 I have reviewed the lab results: Yes Interpretation: Abnormal lab values (Hyperglycemia, otherwise unremarkable) - RAD Interpretation Narrative RAD Interpretations (Text): 11/28/16 02:01 CXR: NAD Radiology Orders: 11/27/16 23:52 CHEST PORTABLE [RAD] Stat - EKG Interpretation Interpreted by ED Physician: Yes (NSR @ [address] changes) Type: 12 lead EKG Comparison: No previous EKG avail. - Medication Orders Current Medication Orders: Discontinued Medications Home Med (*Refrigerator Open) Confirm Administered Dose 1 unit XX .STK-MED ONE Stop: 11/28/16 06:38 Insulin Human Regular (Humulin R) 8 units SC STAT STA Stop: 11/28/16 00:28 Last Admin: 11/28/16 00:47 Dose: 8 UNITS Subcutaneous Admin in ER Document 11/28/16 00:47 SB (Rec: 11/28/16 00:[address] [id number]) Injection Site MAR Injection Site Left Arm Subcutaneous Administrations Document 11/28/16 00:47 SB (Rec: 11/28/16 00:47 SB [id number]) Injection Site MAR Injection Site Left Arm Charges for Administration # of Subcutaneous Administrations 1 Disposition/Present on Arrival - Present on Arrival Any Indicators Present on Arrival: No History of DVT/PE: No History of Uncontrolled Diabetes: Yes Urinary Catheter: No History of Decub. Ulcer: No History Surgical Site Infection Following: None - Disposition Have Diagnosis and Disposition been Completed?: Yes Diagnosis: Depression Disposition: HOME/ ROUTINE Disposition Time: 03:50 Patient Plan: Discharge Condition: GOOD
[2016-11-28 00:06] LABS: ADD MANUAL DIFF? NO
[2016-11-28 00:08] LABS: BASO # 0.01 K/mm3 (0.0-2.0); BASO % 0.2 % (0.0-3.0); EOS # 0.2 (0.0-0.7); EOS % 3.4 % (1.5-5.0); GRAN # 4.09 (1.4-6.5); GRAN % 62.8 % (50.0-68.0); HEMATOCRIT 35.2 % (36.0-48.0); LYMPH # 1.6 (1.2-3.4); LYMPH % 24.7 % (22.0-35.0); MEAN CELL VOLUME 81.3 fL (80.0-105.0); MEAN CORPUSCULAR HEMOGLOBIN 27.5 pg (25.0-35.0); MEAN CORPUSCULAR HGB CONC 33.8 g/dl (31.0-37.0); MEAN PLATELET VOLUME 9.9 fl (7.0-11.0); MONO # 0.6 (0.1-0.6); MONO % 8.9 % (1.0-6.0); PLATELET COUNT 207 10^3/uL (120.0-450.0); RED CELL DISTRIBUTION WIDTH 13.8 % (11.5-14.5); WHITE BLOOD COUNT 6.5 10^3/ul (4.5-11.0)
[2016-11-28 00:20] LABS: ALB/GLOB RATIO 1.1 (1.1-1.8); ALKALINE PHOSPHATASE 126 U/L (38-133); ALT/SGPT 37 U/L (7-56); AST/SGOT 24 U/L (15-39); BILIRUBIN,TOTAL 0.6 mg/dL (0.2-1.3); BLOOD UREA NITROGEN 13 mg/dL (7-21); CALCIUM 9.2 mg/dL (8.4-10.5); CARBON DIOXIDE 31 mmol/L (21-33); CHLORIDE 94 mmol/L (98-107); GFR AFRICAN-AMERICAN > 60; POTASSIUM 3.7 mmol/L (3.6-5.0); SODIUM 134 mmol/L (132-148)
[2016-11-28 00:26] LABS: GLUCOSE,RANDOM 415 mg/dL (70-110)
[2016-11-28] MEDS ORDERED: Insulin Regular 1 UNITS/0.01 ML ML SC STA (00:27)
[2016-11-28 01:26] LABS: URINE BILIRUBIN NEGATIVE (NEGATIVE); URINE BLOOD TRACE-LYSED (NEGATIVE); URINE GLUCOSE (UA) >=1000 mg/dL (NEGATIVE); URINE KETONE NEGATIVE (NEGATIVE); URINE LEUKOCYTE ESTERASE NEGATIVE Leu/uL (NEGATIVE); URINE PROTEIN NEGATIVE mg/dL (<30 mg/dL); URINE UROBILINOGEN 0.2 E.U./dL (<1 E.U./dL)
[2016-11-28 01:33] LABS: URINE APPEARANCE CLEAR (CLEAR); URINE COLOR YELLOW (YELLOW)
[2016-11-28 01:46] LABS: URINE EPITHELIAL CELLS 0 - 2 /hpf (0-5); URINE RBC 0 - 2 /hpf (0-2); URINE WBC 0 - 2 /hpf (0-6)
[2016-11-28 03:41] VITALS: BP 152/68; PULSE 85; O2SAT 95
--- NOTE | 2016-11-28 08:44 | RAD ---
HISTORY: PES eval COMPARISON: 11/25/2016 FINDINGS: LUNGS: No active pulmonary disease. PLEURA: No significant pleural effusion identified, no pneumothorax apparent. CARDIOVASCULAR: Normal. OSSEOUS STRUCTURES: No significant abnormalities. VISUALIZED UPPER ABDOMEN: Normal. OTHER FINDINGS: None. IMPRESSION: No active disease.
--- NOTE | 2016-11-28 11:30 | CARD ---
APPROVED REPORT EKG Measurement Heart [id number] <Conclusion> Normal sinus rhythm LVH PRWP NSSTW changes Prolonged QTC No change
== END 2016-11-28 03:42 | disposition home or self-care (01) ==
LOC: ED 23:14
DX: F32.9 Major depressive disorder, single episode, unspecified (principal); Z87.891 Personal history of nicotine dependence; E11.9 Type 2 diabetes mellitus without complications; I10 Essential (primary) hypertension

== ENCOUNTER 2016-12-03 02:24 | Observation (INO) | payer OTHER, BC ==
[2016-12-03 02:24] VITALS: BMI 28.3
--- NOTE | 2016-12-03 02:28 | ED PDOC ---
Arrival/HPI <Jose Antonio Pereira - Last Filed: 12/03/16 05:56> - General Historian: Patient - History of Present Illness Time/Duration: 1 hour Symptom Onset: Sudden Symptom Course: Unchanged Quality: Aching, Pressure Severity Level: 7 Activities at Onset: Light <Laure Wells - Last Filed: 12/03/16 06:01> - General Chief Complaint: Chest Pain Time Seen by Provider: 12/03/16 02:26 - History of Present Illness Narrative History of Present Illness (Text): 12/03/16 03:02 56 yo F with h/o HTN, IDDM2, GERD, Heller's esophagus, MDD, ANRULFO presents with [facility] with 1 hour h/o left tight, aching CP onset when she woke up from sleep to use the restroom tonight. Patient states she has been having 3 weeks of joint pain and swelling in her hands. She was reportedly admitted at [facility] in October at which time she was found to have an elevated D-dimer in the 3000s and was scheduled to have a followup with Dr. Lima in the morning. Patient denies SOB, pleurisy, abd pain, n/v/d/c, fevers, chills, skin changes, dizziness, diaphoresis, headache, states she is compliant with her home meds. (Laure Wells) Past Medical History - Provider Review Nursing Documentation Reviewed: Yes - Travel History Have you recently traveled outside [place] w/in the past 3 mons?: No - Infectious Disease Hx of Infectious Diseases: None - Tetanus Immunization Tetanus Immunization: Unknown - Cardiac Hx Hypertension: Yes - Pulmonary Hx Asthma: No - Neurological Hx Transient Ischemic Attacks (TIA): Yes - HEENT Hx HEENT Disorder: No - Renal Hx Renal Disorder: No - Endocrine/Metabolic Hx Endocrine Disorders: Yes Hx Diabetes Mellitus Type 2: Yes Other/Comment: thyroid nodule right side - Hematological/Oncological Hx Anemia: Yes (with transfusion) - Integumentary Hx Dermatological Disorder: No - Musculoskeletal/Rheumatological Hx Falls: No - Gastrointestinal Hx Gastrointestinal Disorders: Yes Hx Gastroesophageal Reflux: Yes - Genitourinary/Gynecological Hx Genitourinary Disorders: Yes Hx Urinary Tract Infection: Yes - Psychiatric Hx Anxiety: Yes Hx Depression: Yes Hx Substance Use: No - Surgical History Hx Section: Yes Hx Hysterectomy: Yes Other/Comment: toe surgery, - Anesthesia Hx Anesthesia: Yes Hx Anesthesia Reactions: Yes (difficulty awakening,combative) Hx Malignant Hyperthermia: No - Suicidal Assessment Feels Threatened In Home Enviroment: No <Tabatha Wellsa - Last Filed: 12/03/16 06:01> Family/Social History - Physician Review Nursing Documentation Reviewed: Yes Family/Social History: Diabetes, CAD/MT Smoking Status: Former Smoker Hx Alcohol Use: Yes (SOCIAL) Hx Substance Use: No <Laure Wells - Last Filed: 12/03/16 06:01> Allergies/Home Meds <Jose Antonio Pereira - Last Filed: 12/03/16 05:56> <Laure Wells - Last Filed: 12/03/16 06:01> Allergies/Adverse Reactions: Allergies acetaminophen [From Percocet] Adverse Reaction (Intermediate, Verified 12/03/16 02:50) VOMITING oxycodone HCl [From Percocet] Adverse Reaction (Intermediate, Verified 12/03/16 02:50) VOMITING Home Medications: Home Meds Medication Instructions Recorded Confirmed Atorvastatin [Lipitor] 10 mg PO DIN 12/03/16 12/03/16 Insulin Detemir [Levemir] 30 unit SC HS 12/03/16 12/03/16 Insulin Lispro Mix 75/25 [HumaLOG 15 units SC ACBD 12/03/16 12/03/16 Mix 75/25] cloNIDine [clonidine HCl] 0.2 mg PO DAILY 12/03/16 12/03/16 Review of Systems - Physician Review All systems were reviewed & negative as marked: Yes - Review of Systems Constitutional: absent: Fatigue, Fevers Eyes: Normal Respiratory: absent: SOB, Cough Cardiovascular: Chest Pain (L aching pain). absent: Palpitations, Calf Pain, WEBER, Orthopnea, Syncope Gastrointestinal: absent: Abdominal Pain, Constipation, Diarrhea, Nausea, Vomiting, Hematemesis Genitourinary Female: absent: Dysuria, Frequency Musculoskeletal: absent: Back Pain, Neck Pain Skin: absent: Rash, Skin Lesions Neurological: absent: Headache, Dizziness, Focal Weakness Psychiatric: Anxiety, Depression <Laure Wells - Last Filed: 12/03/16 06:01> Physical Exam Vital Signs Reviewed: Yes Temperature: Afebrile Blood Pressure: Hypertensive Pulse: Regular Respiratory Rate: Normal Appearance: Positive for: Well-Appearing, Non-Toxic, Comfortable Pain Distress: Mild Mental Status: Positive for: Alert and Oriented X 3 - Systems Exam Head: Present: Atraumatic, Normocephalic Pupils: Present: PERRL Extroacular Muscles: Present: EOMI Conjunctiva: Present: Normal Mouth: Present: Moist Mucous Membranes Neck: Present: Normal Range of Motion, Meningeal Signs. No: Paraspinal Tenderness, JVD Respiratory/Chest: Present: Clear to Auscultation, Good Air Exchange. No: Respiratory Distress, Accessory Muscle Use, Wheezes, Rales, Rhonchi Cardiovascular: Present: Regular Rate and Rhythm, Murmurs (3/6 systolic LSB), Normal S1, S2 Abdomen: Present: Normal Bowel Sounds. No: Tenderness, Distention, Peritoneal Signs, Guarding Upper Extremity: Present: Normal Inspection. No: Cyanosis, Edema Lower Extremity: Present: Normal Inspection, NORMAL PULSES. No: Edema, CALF TENDERNESS Neurological: Present: GCS=15, CN II-XII Intact, Speech Normal Skin: Present: Warm, Dry, Normal Color Psychiatric: Present: Alert, Oriented x 3, Normal Concentration <Laure Wells - Last Filed: 12/03/16 06:01> Vital Signs Temp Pulse Resp BP Pulse Ox 12/03/16 02:41 97.9 F 95 H 18 178/107 H 97 Medical Decision Making - Lab Interpretations I have reviewed the lab results: Yes - RAD Interpretation Senior Engineering Tech: ED Physician - EKG Interpretation Interpreted by ED Physician: Yes Type: 12 lead EKG <Jose Antonio Pereira - Last Filed: 12/03/16 05:56> Re-evaluation Time: 04:39 Reassessment Condition: Unchanged - EKG Interpretation Interpreted by ED Physician: Yes Type: 12 lead EKG Comparison: Similar to previous EKG <Laure Wells - Last Filed: 12/03/16 06:01> ED Course and Treatment: Impression: Pt seen and evaluated with medical imaging tech. Pt, whose past medical history includes hypertension, IDDM, GERD, Heller's esophagus, and CAD, presented complaining of left-sided chest tightness/aching tonight. Pt also complaining of joint pain and bilateral hand swellings. Aware and agree with HPI, clinical findings, plan, and management. Plan: -- EKG -- CTA Chest -- Chest X-ray -- Labs, cardiac enzymes, D-dimer -- UA -- Aspirin -- Nitroglycerin -- Reassess and disposition Prior Visits: Notes and results from previous visits were reviewed. Progress Notes: 12/03/16 05:57 CTA Chest shows: Pulmonary arteries: The main pulmonary artery measures 21 mm. No central pulmonary embolism is identified. There is some motion artifact which degrades visualization of peripheral pulmonary branches. Aorta: The ascending thoracic aorta measures 33 mm. No thoracic aortic aneurysm. Lungs: Minimal scattered atelectasis and patchy groundglass infiltrates, particularly in the bases. No mass. Pleural space: Unremarkable. No significant effusion. No pneumothorax. Heart: Unremarkable. No cardiomegaly. No significant pericardial effusion. No evidence of RV dysfunction. Thyroid: Mild prominence of the thyroid lobes bilaterally which are slightly inhomogeneous. Bones/joints: No acute fracture. No dislocation. Soft tissues: Unremarkable. Lymph nodes: Unremarkable. No enlarged lymph nodes. IMPRESSION: 1. Minimal bibasilar atelectasis and patchy groundglass infiltrates. 2. Otherwise negative CTA chest. No central pulmonary embolism is identified. There is some image degradation peripheral branches due to motion artifact. 3. Mild prominence of the thyroid lobes. (Jose Antonio Pereira) 12/03/16 03:34 56 yo F with h/o HTN, IDDM2, GERD, MDD, ARNULFO presented with L CP. Also admits to joint pain BL hands. Labs, CXR, CTA chest, EKG, ASA, nitro. 12/03/16 04:39 Dr. Pereira spoke with Dr. Bowen, accepts admission to her service, observation, telemetry, Dr. Lima and Dr. Schaffer on consult. 12/03/16 04:54 BS 374 - will order 5units SQ levemir. (Laure Wells) - Lab Interpretations Lab Results: 12/03/16 03:29 12/03/16 03:29 Lab Results 12/03/16 03:29: WBC 6.8, RBC 4.25, Hgb 11.6 L, Hct 34.5 L, MCV 81.2, MCH 27.3, MCHC 33.6, RDW 14.2, Plt Count 237, MPV 10.1, Gran % 59.0, Lymph % (Auto) 28.6, [place] % (Auto) 8.0 H, Eos % (Auto) 4.1, Baso % (Auto) 0.3, Gran # 3.99, Lymph # 1.9, [place] # 0.5, Eos # 0.3, Baso # 0.02, PT 10.6, INR 0.98, APTT 32.4 H, D-Dimer , Quantitative 0.34, Sodium 134, Potassium 3.9, Chloride 95 L, Carbon Dioxide 30 , Anion Gap 13, BUN 13, Creatinine 0.7, Est GFR ( Amer) > 60, Est GFR ( Non-Af Amer) > 60, Random Glucose 374 H*, Calcium 9.2, Magnesium 1.8, Total Bilirubin 0.7, AST 23, ALT 31, Alkaline Phosphatase 125, Lactate Dehydrogenase 581, Total Creatine Kinase 91, Troponin I < 0.01 D, Total Protein 7.8, Albumin 3.9, Globulin 3.9, Albumin/Globulin Ratio 1.0 L - RAD Interpretation Narrative RAD Interpretations (Text): 12/03/16 03:41 CXR - no active disease (Laure Wells) Radiology Orders: 12/03/16 02:52 CXR [CHEST PORTABLE] [RAD] Stat 12/03/16 03:39 ANGIO CHEST PE PROTOCOL [CT] Stat - EKG Interpretation EKG Interpretation (Text): 12/03/16 04:17 NSR 87bpm, prolonged QT 390/QTc 469, LVH, nonspecific ST/T abnormalities, no changes vs 11/27/2016 (Laure Wells) - Medication Orders Current Medication Orders: Insulin Human Lispro (Humalog Low) 0 units SC ACHS [facility] PRN Reason: Protocol Nitroglycerin (Nitro-Bid 2% Oint) 1 ea TOP STAT STA Stop: 12/03/16 06:01 Discontinued Medications Aspirin (Aspirin) 325 mg PO STAT STA Stop: 12/03/16 02:55 Last Admin: 12/03/16 03:10 Dose: 325 MG Insulin Detemir (Levemir) 5 unit SC ONCE ONE Stop: 12/03/16 04:44 Last Admin: 12/03/16 05:07 Dose: 5 UNIT Subcutaneous Administrations Document 12/03/16 05:07 HAZEL (Rec: 12/03/16 05:08 [id number]) Charges for Administration # of Subcutaneous Administrations 1 Iodixanol (Visipaque 320 Mg/Ml 100 Ml) Confirm Administered Dose 100 ml IV .STK- MED ONE Stop: 12/03/16 04:41 Ketorolac Tromethamine (Toradol) 30 mg IVP STAT STA Stop: 12/03/16 05:08 Last Admin: 12/03/16 05:13 Dose: 30 MG IVP Administration Document 12/03/16 05:13 EKEOO (Rec: 12/03/16 05:13 EKEOO [id number]) Charges for Administration # of IVP Administrations 1 Nitroglycerin (Nitrostat Sl Tab) 0.4 mg SL STAT STA Stop: 12/03/16 02:55 Last Admin: 12/03/16 03:11 Dose: 0.4 MG - PA / CORPORATE TRAVEL AGENT / Resident Statement / has reviewed & agrees with the documentation as recorded. / has examined the patient and agrees with the treatment plan. <Jose Antonio Pereira - Last Filed: 12/03/16 05:56> Disposition/Present on Arrival <Jose Antonio Pereira - Last Filed: 12/03/16 05:56> - Present on Arrival Any Indicators Present on Arrival: Yes History of DVT/PE: No History of Uncontrolled Diabetes: Yes Urinary Catheter: No History of Decub. Ulcer: No History Surgical Site Infection Following: None - Disposition Have Diagnosis and Disposition been Completed?: Yes Disposition Time: 04:00 Patient Plan: Admission, Observation <Laure Wells - Last Filed: 12/03/16 06:01> - Disposition Diagnosis: Chest pain, Elevated d-dimer Disposition: HOSPITALIZED Patient Problems: Current Active Problems Problem Status Diagnosed Chest pain Acute Elevated d-dimer Acute Condition: FAIR
[2016-12-03 04:11] LABS: ADD MANUAL DIFF? NO
[2016-12-03 04:25] LABS: ALKALINE PHOSPHATASE 125 U/L (38-133); ALT/SGPT 31 U/L (7-56); AST/SGOT 23 U/L (15-39); BILIRUBIN,TOTAL 0.7 mg/dL (0.2-1.3); BLOOD UREA NITROGEN 13 mg/dL (7-21); CALCIUM 9.2 mg/dL (8.4-10.5); CARBON DIOXIDE 30 mmol/L (21-33); CHLORIDE 95 mmol/L (98-107); GFR AFRICAN-AMERICAN > 60; INR 0.98 (0.93-1.08); MAGNESIUM 1.8 mg/dL (1.7-2.2); PARTIAL THROMBOPLASTIN TIME 32.4 Seconds (23.7-30.8); POTASSIUM 3.9 mmol/L (3.6-5.0); SODIUM 134 mmol/L (132-148); TOTAL PROTEIN 7.8 g/dL (5.8-8.3)
[2016-12-03 04:37] LABS: GLUCOSE,RANDOM 374 mg/dL (70-110); TROPONIN I < 0.01 ng/mL
[2016-12-03] MEDS ORDERED: Iodixanol 320 MG/ML 100 ML BOTTLE IV ONE (04:40)
[2016-12-03] MEDS ORDERED: Insulin Detemir 100 units/ml Vial (Levemir) SC ONE (04:43)
[2016-12-03 04:44] LABS: BASO # 0.02 K/mm3 (0.0-2.0); BASO % 0.3 % (0.0-3.0); D DIMER 0.34 mg/L FEU (0-0.50); EOS # 0.3 (0.0-0.7); EOS % 4.1 % (1.5-5.0); GRAN # 3.99 (1.4-6.5); HEMATOCRIT 34.5 % (36.0-48.0); LYMPH # 1.9 (1.2-3.4); LYMPH % 28.6 % (22.0-35.0); MEAN CELL VOLUME 81.2 fL (80.0-105.0); MEAN CORPUSCULAR HEMOGLOBIN 27.3 pg (25.0-35.0); MEAN CORPUSCULAR HGB CONC 33.6 g/dl (31.0-37.0); MEAN PLATELET VOLUME 10.1 fl (7.0-11.0); MONO # 0.5 (0.1-0.6); PLATELET COUNT 237 10^3/uL (120.0-450.0); RED CELL DISTRIBUTION WIDTH 14.2 % (11.5-14.5); WHITE BLOOD COUNT 6.8 10^3/ul (4.5-11.0)
[2016-12-03] MEDS ORDERED: Nitroglycerin 2% Ointment Foilpak UD TOP STA (06:00)
--- NOTE | 2016-12-03 07:14 | RAD ---
HISTORY: CP COMPARISON: 11/28/2016 FINDINGS: LUNGS: No active pulmonary disease. The mild prominence to the perihilar bronchovascular markings are consistent with some crowding - given the shallow lung volumes PLEURA: No significant pleural effusion identified, no pneumothorax apparent. CARDIOVASCULAR: Normal. OSSEOUS STRUCTURES: Thoracic spondylosis VISUALIZED UPPER ABDOMEN: Normal. OTHER FINDINGS: None. IMPRESSION: No active disease. No interval pathology seen
[2016-12-03] MEDS: Insulin Lispro (humaLOG) LOW Coverage SC SCH ×3 (09:15→16:53)
--- NOTE | 2016-12-03 09:29 | CON ---
DATE: 12/03/2016 REASON FOR CONSULTATION: Chest pain, elevated D-dimer. BRIEF CLINICAL HISTORY: This is a 56-year-old female, used to be followed by Dr. Arora, had a ca rdiac catheterization twice. Dr. Bowen asked me to see the patient. When I talked to the patient, the patient is being followed by Dr. Arora. Will discuss with Dr. Arora on text, will be gl ad to see the patient. So, will cancel the consult for us and put for Dr. Arora. Will notify Dr Luba Bowen as well and will transfer care of this patient under Dr. Arora for cardiology point of view. Nancy Schaffer MD cc: [phone] TT: 12/03/2016 09:29:15 Confirmation # [id number] Dictation # [id number]
--- NOTE | 2016-12-03 11:15 | CT ---
PROCEDURE: CT Chest with contrast (Pulmonary Angiogram) HISTORY: D-Dimer 3000, CP COMPARISON: None available. TECHNIQUE: Axial computed tomography images were obtained of the chest in the pulmonary arterial phase of enhancement. Coronal and sagittal reformatted images were created and reviewed. Intravenous contrast dose: 100 cc of Visipaque Radiation dose: Total exam DLP = 691 mGy-cm. This CT exam was performed using one or more of the following dose reduction techniques: Automated exposure control, adjustment of the mA and/or kV according to patient size, and/or use of iterative reconstruction technique. FINDINGS: PULMONARY ARTERIES: Unremarkable. No pulmonary embolism. AORTA: No acute findings. No thoracic aortic aneurysm. LUNGS: Unremarkable. No nodule, mass or pulmonary consolidation. PLEURAL SPACES: Unremarkable. No effusion or pneuomothorax. HEART: Unremarkable. No cardiomegaly. No significant pericardial effusion. LYMPH NODES: No lymphadenopathy. BONES, CHEST WALL: Unremarkable. No fracture or destructive lesion OTHER FINDINGS: The thyroid is mildly enlarged The report concurs with the preliminary [facility] report IMPRESSION: Unremarkable CT pulmonary angiogram. No pulmonary embolus.
--- NOTE | 2016-12-03 14:04 | CON ---
DATE: 12/03/2016 REASON FOR CONSULTATION: Chest pain. HISTORY OF PRESENT ILLNESS: The patient is a 56-year-old female who has a history o f hypertension, diabetes mellitus, history of depression. The patient has history of gastric banding in the past which was reversed and the patient has multiple admissions for chest pain in the past. She underwent 2 cardiac catheterizations that were unremarkable and recent Myoview stress test at [facility], which was unremarkable. The patient was admitted because of chest discomfort, aching in nature, associated with bilateral hand stiffness and numbness. The patient was treated for periph eral neuropathy in the past. The patient did have elevated D-dimer at [facility] and both venou s Doppler and CT angio of the chest were positive for a DVT or pulmonary embolus. SOCIAL HISTORY: The patient is a nonsmoker. 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 HOME MEDICATIONS: Include Ambien 10 mg at bedtime, Ativan 0.5 mg a.m. and at bedtime, Cozaar 100 mg once a day, Cymbalta 160 mg daily, Lyrica 100 mg at bedtime, Norvasc 10 mg once a day, clonidine 0.2 mg daily, Levemir 100 units subcutaneously at bedtime, Lipitor 20 mg once a day. REVIEW OF SYSTEMS: No fever or chills. No productive cough. PHYSICAL EXAMINATION: GENERAL: The patient is a middle-aged female who does not appear to be in any distress. VITAL SIGNS: Blood pressure 161/105, heart rate 80, respirations 18, temperature 97.9. HEENT: Normocephalic. NECK: No JVD. CHEST: Clear. HEART: S1, S2 regular. ABDOMEN: Soft. EXTREMITIES: No edema, no calf tenderness. LABORATORY DATA: Hemoglobin and hematocrit 11.6 and 34.5, white count and platelet count are within normal limit. SMA-7 is within normal limits except for glucose of 374 and chloride of 95. Two sets of troponins are negative. PT 10.6, PTT 38.4. D-dimer is within normal limits. EKG revealed sinus rhythm at a rate of 87, nonspecific T-wave changes, prolonged QT interval. Echocardiographic study p erformed in May of last year at [facility] revealed normal ejection fraction, trace aortic insufficiency, mild to moderate mitral insufficiency. Myoview stress test done in October of last ye ar revealed normal SPECT myocardial perfusion study, normal gated wall motion of the left ventricle. The exercise was finished at 1 minute and 21 seconds of the second stage of Renard protocol. The pat ient achieved 89% of predicted maximal heart rate at that time. CT angio of the chest was an unremarkable study, no pulmonary emboli. Recent gastric emptying study in October of this year was a normal study. No evidence of gastroparesis. ASSESSMENT: 1. Atypical chest pain, myocardial infarction is ruled out. 2. Uncontrolled diabetes mellitus. 3. Uncontrolled hypertension. RECOMMENDATIONS: Resume amlodipine 10 mg once a day, Cozaar at 100 mg once a day and clonidine at __ ___ mg t.i.d., Lipitor 10 mg once a day. Marino Arora MD cc: [id number] TT: 12/03/2016 14:03:59 Confirmation # [id number] Dictation # [id number] sn
[2016-12-03] MEDS ORDERED: Pneumococcal 23-Valent Vaccine IM ONE (14:19)
[2016-12-03] MEDS ORDERED: Naproxen 550 mg Tab PO STA (15:40)
[2016-12-03] MEDS ORDERED: Oxycodone/Acetaminophen 5/325 mg Tab PO PRN (15:44)
[2016-12-03] MEDS: Naproxen 550 mg Tab PO SCH ×2 (16:03→23:30)
--- NOTE | 2016-12-03 18:00 | CARD ---
APPROVED REPORT EKG Measurement Heart [id number] MA [id number] <Conclusion> Normal sinus rhythm Voltage criteria for left ventricular hypertrophy Nonspecific T wave abnormality Prolonged QT Abnormal ECG
[2016-12-03] MEDS ORDERED: Insulin Detemir 100 units/ml Vial (Levemir) SC SCH (22:00)
[2016-12-03] MEDS: Insulin Lispro (HUMAlog) HIGH Coverage SC SCH (22:10)
--- NOTE | 2016-12-03 23:16 | HP ---
HISTORY OF PRESENT ILLNESS: The patient is a 56-year-old who came to Emergency Room because of chest pain. She was recently admitted and discharged. She was found to have muscular chest pain at that point. She was given Naprosyn, but she states yesterday she had chest discomfort along with pain in all her joints. Denies any fever or chills. No nausea, vomiting, no diarrhea, no weakness, no dizzi ness. PAST MEDICAL HISTORY: 1. She has significant past medical history of gastric banding in the past followed by reversal. 2. Status post cardiac catheterization done in [facility] and was unremarkable. 3. Insulin-dependent diabetes. 4. Hypertension. 5. Hyperlipidemia. 6. Status post stress test in 05/2016 was unremarkable. SOCIAL HISTORY: Denies smoking or drinking. She is , but has some marital problems going on at home and she has been admitted in [facility] for major depression. ALLERGIES: SHE IS ALLERGIC TO ACETAMINOPHEN AND OXYCODONE. MEDICATIONS AT HOME: She is on amlodipine 10 mg daily, zolpidem 10 mg at bedtime, telmisartan 80 mg daily, Lyrica 100 mg at bedtime, Cozaar 100 mg daily, Ativan 0.5 twice a day, Levemir 35 units at bed time, Cymbalta 60 mg daily, Lipitor 20 mg daily. SOCIAL HISTORY: Drinks socially, but used to be a smoker, but quit. PHYSICAL EXAMINATION: GENERAL: Complained of generalized stiffness and joint pain. VITAL SIGNS: She is afebrile, pulse 85, respirations 20, blood pressure 152/86. LUNGS: Bilateral good airflow, no rhonchi or crackle. HEART: S1, S2 audible. No murmur. ABDOMEN: Soft, nontender, no rebound, no guarding. NEUROLOGIC: She is awake, alert and able to communicate. LABORATORY DATA: WBC 6.8, hemoglobin 11.6, hematocrit 34.5, platelet 237. Chemistry: Sodium , potassium 3.9, chloride 95, CO2 of 30, BUN 13, creatinine 0.7, blood sugar of 302. Urinalysis is un remarkable. ASSESSMENT: 1. Chest pain, etiology unclear. CT angio is unremarkable. However, she did have a D-dimer. 2. Insulin-dependent diabetes. 3. Hypertension. 4. Hyperlipidemia. PLAN: We will start the patient on Naprosyn, start her on Cozaar and monitor her blood sugar. I max l order for rheumatological workup and reevaluate the patient in a.m. Goldie Bowen MD cc: [id number] TT: 12/03/2016 23:15:53 mn
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
[2016-12-04 05:57] VITALS: RESP 18; O2SAT 97
[2016-12-04] MEDS ORDERED: Pantoprazole 40 mg EC Tab PO SCH (07:30)
[2016-12-04] MEDS ORDERED: Insulin Lispro (humaLOG) MIX 75/25(10 ml) SC SCH (07:30)
[2016-12-04] MEDS: Insulin Lispro (HUMAlog) HIGH Coverage SC SCH ×2 (08:53→12:28)
[2016-12-04] MEDS: Naproxen 550 mg Tab PO SCH (11:28)
[2016-12-04 11:29] VITALS: PULSE 93
[2016-12-04 12:05] VITALS: BP 150/97; TEMP 98.3
--- NOTE | 2016-12-04 14:17 | PN ---
DATE: 12/04/2016 SUBJECTIVE: The patient denies chest pain, no shortness of breath. Her hands and feet pain has impr ivy. PHYSICAL EXAMINATION: VITAL SIGNS: Blood pressure 150/97, heart rate 93, temperature 98.3, respirations 18. HEENT: Normocephalic. NECK: No JVD. CHEST: Clear. HEART: S1, S2 regular. EXTREMITIES: No edema. LABORATORIES: The most recent blood sugar from last night was 286. CT angio of the chest was unremarkable and no pulmonary embolus noted. ASSESSMENT: 1. Atypical chest pain. Myocardial infarction is ruled out. 2. Uncontrolled hypertension. 3. Uncontrolled diabetes mellitus. 4. Rule out rheumatoid arthritis. RECOMMENDATIONS: The patient can be discharged from the cardiac point of view on Cozaar 100 mg once a day, amlodipine 10 mg once a day, clonidine 0.2 mg b.i.d., and Lipitor 10 mg once a day. The patie nt was asked to follow up with glass cleaner as an outpatient. Marino Arora MD cc: [id number] TT: 12/04/2016 14:17:00 Confirmation # [id number] Dictation # [id number] nadira
--- NOTE | 2016-12-04 17:58 | DS ---
The patient is a 56-year-old, seen and examined. She states she is doing much better. She is sittin g in chair. Hand stiffness is much better. Chest pain is almost gone and she is anxious to go home. PHYSICAL EXAMINATION: VITAL SIGNS: She is afebrile, pulse 93, respirations 18, blood pressure 150/97. LUNGS: Bilateral fair airflow, no rhonchi or crackle. HEART: S1, S2 audible. ABDOMEN: Soft, nontender, obese. No hepatosplenomegaly. NEUROLOGIC: The patient is awake and alert, communicative. LABORATORY EXAMINATION: WBCs 6.8, hemoglobin 11.6, hematocrit 34.5, platelets of 237. Chemistry: S odium 134, potassium 3.9, chloride 95, CO2 30, BUN 13, creatinine 0.7, blood sugar of 286. Urinalysi s is unremarkable. Her rheumatoid factor is pending. Double stranded DNA is pending. ASSESSMENT: 1. Chest pain, noncardiac, probably musculoskeletal. 2. Status post cardiac catheterization and stress test recently done. It was unremarkable. 3. Insulin-dependent diabetes. 4. Hypertension. 5. Hyperlipidemia. 6. History of depression. PLAN: The patient is being discharged home. She takes pantoprazole at home. I gave prescription of Naprosyn 500 twice a day as needed. She will follow up with Dr. Hawthorne as outpatient and she will r esume all her medication as prior to her admission that includes clonidine 0.2 daily, Norvasc 10 mg d aily, Ambien 10 mg at bedtime. She is on [place]sta that is 80/5 and Lyrica 100 mg at bedtime, Cozaar 1 00 mg daily, lorazepam 0.5 twice a day. She takes Levemir 30 units at bedtime. She is on Lipitor 10 mg daily. She will stay on 2 g sodium diabetic diet and she will be following with her doctor, , as outpatient and Dr. Hawthorne, [employer], as outpatient. Goldie Bowen MD cc: [id number] TT: 12/04/2016 17:57:30 en
== END 2016-12-04 13:55 | disposition home or self-care (01) ==
LOC: ED 02:24 → ERH 04:56 → CCU 08:20 → 2RNO 22:54
PROVIDERS: ADMIT Internal Medicine; ATTEND Internal Medicine
DX: R07.89 Other chest pain (principal); E11.65 Type 2 diabetes mellitus with hyperglycemia; I10 Essential (primary) hypertension; E78.5 Hyperlipidemia, unspecified; F32.9 Major depressive disorder, single episode, unspecified; I08.0 Rheumatic disorders of both mitral and aortic valves; D64.9 Anemia, unspecified; Z79.4 Long term (current) use of insulin; Z87.891 Personal history of nicotine dependence; Z98.84 Bariatric surgery status
CPT/HCPCS: 36415; 71010; 71275; 80053; 82550; 82948; 83615; 83735; 84484; 84703; 85025; 85378; 85610; 85651; 85730; 86225; 87081; 93005; 96372; 96374; 99285; G0378; J1756; J1885; J3420; Q9967

== ENCOUNTER 2016-12-14 01:11 | Observation (INO) | payer OTHER, BC ==
[2016-12-14 01:11] VITALS: BMI 28.3
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
[2016-12-14 03:13] LABS: ADD MANUAL DIFF? NO
[2016-12-14 03:27] LABS: ALB/GLOB RATIO 1.1 (1.1-1.8); ALKALINE PHOSPHATASE 130 U/L (38-133); ALT/SGPT 33 U/L (7-56); AST/SGOT 30 U/L (15-39); BILIRUBIN,TOTAL 0.7 mg/dL (0.2-1.3); BLOOD UREA NITROGEN 17 mg/dL (7-21); CALCIUM 9.1 mg/dL (8.4-10.5); CARBON DIOXIDE 30 mmol/L (21-33); CHLORIDE 96 mmol/L (98-107); GFR AFRICAN-AMERICAN > 60; POTASSIUM 3.9 mmol/L (3.6-5.0); SODIUM 137 mmol/L (132-148); TOTAL PROTEIN 7.9 g/dL (5.8-8.3)
[2016-12-14 03:33] LABS: GLUCOSE,RANDOM 451 mg/dL (70-110)
[2016-12-14 03:38] LABS: BASO # 0.04 K/mm3 (0.0-2.0); BASO % 0.6 % (0.0-3.0); EOS # 0.3 (0.0-0.7); EOS % 4.5 % (1.5-5.0); GRAN # 3.94 (1.4-6.5); GRAN % 59.4 % (50.0-68.0); LYMPH # 1.9 (1.2-3.4); LYMPH % 28.4 % (22.0-35.0); MEAN CELL VOLUME 82.4 fL (80.0-105.0); MEAN CORPUSCULAR HEMOGLOBIN 27.7 pg (25.0-35.0); MEAN CORPUSCULAR HGB CONC 33.6 g/dl (31.0-37.0); MEAN PLATELET VOLUME 10.1 fl (7.0-11.0); MONO # 0.5 (0.1-0.6); MONO % 7.1 % (1.0-6.0); PLATELET COUNT 239 10^3/uL (120.0-450.0); RED CELL DISTRIBUTION WIDTH 14.3 % (11.5-14.5); WHITE BLOOD COUNT 6.6 10^3/ul (4.5-11.0)
[2016-12-14] MEDS ORDERED: Insulin Regular 1 UNITS/0.01 ML ML SC STA (05:02)
[2016-12-14] MEDS ORDERED: Sodium Chloride 0.9% 1,000 ML IV SCH (05:15)
[2016-12-14 05:43] LABS: ERYTHROCYTE SEDIMENTATION RATE 11 mm/hr (0.0-20.0)
[2016-12-14] MEDS ORDERED: Insulin Reg-LOW-Coverage SC SCH (07:30)
[2016-12-14] MEDS: Insulin Reg-HIGH-Coverage SC SCH ×3 (12:21→21:53)
[2016-12-14] MEDS ORDERED: MethylPREDNISolone Depo 40 mg/ml Inj IM ONE (16:16)
[2016-12-14] MEDS ORDERED: Bupivacaine 0.5% Inj(30mL) IJ ONE (16:16)
--- NOTE | 2016-12-14 16:33 | RAD ---
PROCEDURE: Radiographs of the left elbow. HISTORY: pain and swelling COMPARISON: No prior. FINDINGS: BONES: No evidence of acute displaced fracture nor dislocation. The osseous structures appear intact. There is small osteophyte seen arising from the dorsal surface of the olecranon of which is surrounded by a localized soft tissue swelling consistent with bursitis. This could be post traumatic or post inflammatory or infectious. Clinical correlation recommended. No significant joint effusion. JOINTS: No significant osteoarthritis. SOFT TISSUES: Normal. JOINT EFFUSION: As above OTHER FINDINGS: None IMPRESSION: No evidence of acute displaced fracture nor dislocation. There is small osteophyte seen arising from the dorsal surface of the olecranon of which is surrounded by a localized soft tissue swelling consistent with bursitis. This could be post traumatic or post inflammatory or infectious. Clinical correlation recommended. No significant joint effusion.
[2016-12-14] MEDS: Insulin Lispro (humaLOG) MIX 75/25(10 ml) SC SCH (17:36)
[2016-12-14 17:37] LABS: FLUID TYPE SYNOVIAL FLUID
[2016-12-14 17:38] LABS: SYNOVIAL FLUID LYMPHOCYTE 60.5 % (0-0); SYNOVIAL FLUID NEUTROPHIL 39.5 % (0-0)
[2016-12-14 17:39] LABS: SYNOVIAL FLUID TOTAL COUNT 100 (0-0)
--- NOTE | 2016-12-14 19:32 | CON ---
DATE: 12/14/2016 A 56-year-old female in 365, bed 2, admitted early this morning on 12/14/2016 from the Emergency Room . She was seen and admitted under Dr. Bowen's service for multiple joint pains. While she was the re, they tried to aspirate the left elbow bursa fluid but was unsuccessful. I saw her this evening as soon as I got consult, so approximately 5:00 p.m., and I was able to aspira te 6 mL of serosanguineous fluid from the left olecranon bursa. I will send it for culture and cell count because she does have a history of hand swelling and stiffness; could be rheumatoid and arthrit is. So, after the successful aspiration of the left elbow, we sent the fluid to the lab and will await th e results. I injected it with Depo-Medrol and Marcaine for some relief of pain. Abraham Brunson DO cc: [id number] TT: 12/14/2016 19:31:30 Confirmation # [id number] Dictation # [id number] loly
[2016-12-14] MEDS ORDERED: TraMADol/Apap 37.5/325 mg Tab PO PRN (20:20)
[2016-12-14 20:32] VITALS: RESP 18; O2SAT 96
[2016-12-14] MEDS: Naproxen 550 mg Tab PO SCH (21:29)
[2016-12-14] MEDS ORDERED: Insulin Detemir 100 units/ml Vial (Levemir) SC SCH (22:00)
--- NOTE | 2016-12-15 08:03 | HP ---
CHIEF COMPLAINT AND HISTORY OF PRESENT ILLNESS: The patient is a 56-year-old female who is coming in to the hospital with complaints of pain in her joints. She states that she has been having recurrent pain that she has had in the past when she has flare ups. She denies any chest pain or shortness of breath, no headaches or dizziness. The patient also is complaining of swelling in the left elbow. She had an aspiration done by the Emergency Room doctor and she was admitted because her sugars were also elevated and not controlled. PAST MEDICAL HISTORY: Gastric banding with reversal, diabetes type 2, hypertension, dyslipidemia. SOCIAL HISTORY: She does not smoke or drink. She is . PHYSICAL EXAMINATION: VITAL SIGNS: Temperature is 98.3, pulse of 91, blood pressure is 180/116, respirations 18, O2 satura tion 99%. GENERAL: The patient comfortable, in no acute distress. HEENT: Anicteric sclerae. Moist mucosa. NECK: No JVD or adenopathy. CARDIAC: S1/S2. No murmurs. No rubs. Regular. RESPIRATORY: Clear to auscultation bilaterally. No wheezes, rales, or rhonchi. Good air entry. ABDOMEN: Bowel sounds are positive, soft, nontender, and nondistended. EXTREMITIES: No edema. Has 1+ pulses. LABORATORY DATA: Have been reviewed, basically normal except for a glucose of 451. ASSESSMENT: 1. Left elbow swelling, status post drainage secondary to probable bursitis. 2. Diabetes type 2, uncontrolled. 3. Hypertension. 4. Coronary artery disease with stents. 5. History of Lap-Band with removal. PLAN: The patient is currently comfortable. She is on clonidine for her blood pressure. She is on her insulin regimen. Will check fingersticks as well as sugar. Her insulin may need to be adjusted. We will wait to see what her fingersticks are with the current insulin regimen. I will discontinue her IV fluids. I will get Dr. Brunson to evaluate for elbow. Her blood pressure is also uncon trolled. Will add Norvasc to her regimen. This is coverage for . Konstantin Farah MD cc: [id number] TT: 12/14/2016 18:48:40 mn
[2016-12-15 08:17] VITALS: BP 143/98; PULSE 78; TEMP 97.5
[2016-12-15] MEDS: Insulin Lispro (humaLOG) MIX 75/25(10 ml) SC SCH (08:22)
[2016-12-15] MEDS: Insulin Reg-HIGH-Coverage SC SCH (08:23)
[2016-12-15] MEDS: Naproxen 550 mg Tab PO SCH (09:17)
--- NOTE | 2016-12-15 14:24 | DS ---
The patient is 56 years old, seen and examined. States she has stiffness in both hands. She has kisha n in her left elbow that was tapped by Dr. Brunson and some fluid was drained and sent to the ER . The patient was given Toradol with good results. She is now asking for more, but I explained to h er is not going good combo with diabetic kidney, so she is given Naprosyn with some results. She was unable to get any rheumatology consult as outpatient yet. PHYSICAL EXAMINATION: GENERAL: Today, she is sleepy but arousable, still has bilateral hand stiffness and numbness, but be tter than before. VITAL SIGNS: She is afebrile, pulse 76, respirations 18, blood pressure 143/98. LUNGS: Bilateral fair airflow, no rhonchi or crackle. HEART: S1, S2 audible. No murmur. ABDOMEN: Soft, nontender, no rebound, no guarding. NEUROLOGIC: The patient is awake and alert, communicative. Moves all extremities. LABORATORY EXAM: Her blood is 451, followup is 338. ASSESSMENT AND PLAN: 1. Generalized aches and pains, probably rheumatism. 2. Left elbow bursitis status post drainage. 3. Non-insulin dependent diabetes. 4. Hypertension. 5. Status post past. PLAN: Currently, patient seems to be stable. Her aches and pain has improved somewhat, but not tota lly. I will discharge the patient on Ativan. Will discontinue Cymbalta since it is giving her aches and pain that she did not have before she started that. Will continue her current regimen, continue her on statins and make discharge plan for today later on. Goldie Bowen MD cc: [phone] TT: 12/15/2016 14:24:24 an
--- NOTE | 2016-12-16 11:35 | CP.PCM.PCO ---
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
== END 2016-12-15 13:40 | disposition home or self-care (01) ==
LOC: ED 01:11 → ERH 05:10 → 3RNO 06:40
PROVIDERS: ADMIT Internal Medicine; ATTEND Internal Medicine
DX: M70.32 Other bursitis of elbow, left elbow (principal); E11.65 Type 2 diabetes mellitus with hyperglycemia; R52 Pain, unspecified; I25.10 Atherosclerotic heart disease of native coronary artery without angina pectoris; I10 Essential (primary) hypertension; E78.5 Hyperlipidemia, unspecified; Z95.5 Presence of coronary angioplasty implant and graft; Z79.84 Long term (current) use of oral hypoglycemic drugs
CPT/HCPCS: 20605; 73080; 80053; 82948; 85025; 85651; 87070; 89051; 96372; 96374; 99284; G0378; J1885; J2405; J7040

== ENCOUNTER 2016-12-21 16:55 | Observation (INO) | payer OTHER, BC ==
[2016-12-21 16:55] VITALS: BMI 28.3
[2016-12-21 18:04] LABS: ADD MANUAL DIFF? NO
[2016-12-21 18:07] LABS: BASO # 0.04 K/mm3 (0.0-2.0); BASO % 0.5 % (0.0-3.0); EOS # 0.3 (0.0-0.7); EOS % 3.7 % (1.5-5.0); GRAN # 4.62 (1.4-6.5); GRAN % 60.8 % (50.0-68.0); HEMATOCRIT 39.3 % (36.0-48.0); LYMPH # 2.2 (1.2-3.4); MEAN CELL VOLUME 82.7 fL (80.0-105.0); MEAN CORPUSCULAR HEMOGLOBIN 27.8 pg (25.0-35.0); MEAN CORPUSCULAR HGB CONC 33.6 g/dl (31.0-37.0); MONO # 0.5 (0.1-0.6); PLATELET COUNT 253 10^3/uL (120.0-450.0); RED CELL DISTRIBUTION WIDTH 14.3 % (11.5-14.5); WHITE BLOOD COUNT 7.6 10^3/ul (4.5-11.0)
[2016-12-21 18:17] LABS: ALKALINE PHOSPHATASE 131 U/L (38-133); ALT/SGPT 25 U/L (7-56); AST/SGOT 22 U/L (15-39); BILIRUBIN,TOTAL 0.8 mg/dL (0.2-1.3); BLOOD UREA NITROGEN 16 mg/dL (7-21); CALCIUM 9.6 mg/dL (8.4-10.5); CARBON DIOXIDE 33 mmol/L (21-33); CHLORIDE 94 mmol/L (98-107); GFR AFRICAN-AMERICAN > 60; GLUCOSE,RANDOM 248 mg/dL (70-110); POTASSIUM 4.4 mmol/L (3.6-5.0); SODIUM 139 mmol/L (132-148); TOTAL PROTEIN 8.6 g/dL (5.8-8.3)
[2016-12-21 18:18] LABS: PARTIAL THROMBOPLASTIN TIME 32.4 Seconds (23.7-30.8)
[2016-12-21 18:32] LABS: TROPONIN I < 0.01 ng/mL
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
[2016-12-21] MEDS ORDERED: Oxycodone/Acetaminophen 5/325 mg Tab PO PRN (21:55)
[2016-12-21] MEDS ORDERED: Insulin Detemir 100 units/ml Vial (Levemir) SC SCH (22:00)
--- NOTE | 2016-12-21 22:50 | HP ---
HISTORY OF PRESENT ILLNESS: The patient is a 56-year-old known to me from multiple previous admissio ns, came to Emergency Room because of intractable headache. She states she never had this kind of he adache. She complained of feeling nauseous, then she arrived in the Emergency Room. Her initial blo od pressure was 176/108. She was given clonidine. She was given Zofran with significant relief in h er headache. She also complained of chest pain. She has multiple admissions for that. She had a re cent cardiac catheterization in [facility] by Dr. Arora and was unremarkable. Complained of some blurry vision. She even stated that at home she felt like her speech is slurred. PAST MEDICAL HISTORY: Significant for: 1. Hypertension. 2. Insulin-dependent diabetes. 3. Hyperlipidemia. 4. History of anxiety disorder. 5. History of depression and was admitted in psych unit for a few days. ALLERGIES: SHE IS ALLERGIC TO ACETAMINOPHEN AND OXYCODONE. MEDICATIONS AT HOME: She is on atorvastatin 10 mg daily, lorazepam 0.5 twice a day. She is on lispr o 75/25 with 15 units before breakfast and before dinner and Levemir 30 units at bedtime, zolpidem 10 mg at bedtime. She is on Twynsta 80/5 daily, Lyrica 100 mg at bedtime, Naprosyn 500 twice a day, cl onidine 0.2 twice a day. SOCIAL HISTORY: She is , but she has recently some marital issues. She has been very upset a nd anxious for that and multiple admissions because of her anxiety and depression. She has been a sm oker in the past. REVIEW OF SYSTEMS: Significant for slight headache, much better than before. PHYSICAL EXAMINATION: VITAL SIGNS: She is afebrile, pulse 66, respirations 18, blood pressure 122/74. LUNGS: Bilateral fair airflow, no rhonchi or crackle. HEART: S1, S2 audible. No murmur. ABDOMEN: Soft, obese, nontender, no rebound, no guarding. NEUROLOGIC: She is awake and alert, communicative. LABORATORY DATA: WBC 7.6, hemoglobin 13, hematocrit 39, platelet of 253. PT 10.8, INR 1.0, PTT 32.4 . Chemistry: Sodium 139, potassium 4.4, chloride 94, CO2 of 33, BUN 16, creatinine 0.7, blood sugar of 248. LFTs are within normal limits. Urinalysis is unremarkable. She had CT scan of the head do ne that is negative. X-ray chest is unremarkable. ASSESSMENT: 1. Intractable headache. 2. Uncontrolled hypertension. 3. Insulin-dependent diabetes. 4. Hypertension. 5. Hyperlipidemia. 6. Anxiety disorder. PLAN: The patient will be placed in observation. We will monitor her blood pressure overnight and m onitor her blood sugar, and if she remains stable, she will be discharged home in a.m. Goldie Bowen MD cc: [phone] TT: 12/21/2016 22:50:06 al
[2016-12-22 01:38] VITALS: O2SAT 98
--- NOTE | 2016-12-22 07:12 | RAD ---
HISTORY: hypertension COMPARISON: Comparison is made to 12/03/2016 FINDINGS: LUNGS: Mild pulmonary vascular congestion. No significant interval change PLEURA: No significant pleural effusion identified, no pneumothorax apparent. CARDIOVASCULAR: Normal. OSSEOUS STRUCTURES: No significant abnormalities. VISUALIZED UPPER ABDOMEN: Normal. OTHER FINDINGS: None. IMPRESSION: Mild pulmonary vascular congestion.
[2016-12-22 07:17] VITALS: BP 129/87; PULSE 65; RESP 20; TEMP 97.6
[2016-12-22] MEDS ORDERED: Insulin Lispro (humaLOG) MIX 75/25(10 ml) SC SCH (07:30)
--- NOTE | 2016-12-22 08:52 | CT ---
PROCEDURE: CT HEAD WITHOUT CONTRAST. HISTORY: headache, hypertension COMPARISON: None available. TECHNIQUE: Axial computed tomography images were obtained through the head/brain without intravenous contrast. Radiation dose: Total exam DLP = 871.01 mGy-cm. This CT exam was performed using one or more of the following dose reduction techniques: Automated exposure control, adjustment of the mA and/or kV according to patient size, and/or use of iterative reconstruction technique. FINDINGS: HEMORRHAGE: No intracranial hemorrhage. BRAIN: No mass effect or edema. No atrophy or chronic microvascular ischemic changes. VENTRICLES: Unremarkable. No hydrocephalus. CALVARIUM: Unremarkable. PARANASAL SINUSES: Unremarkable as visualized. No significant inflammatory changes. MASTOID AIR CELLS: Unremarkable as visualized. No inflammatory changes. OTHER FINDINGS: None. IMPRESSION: No evidence of acute intracranial hemorrhage intracranial collection mass effect or midline shift. Preliminary report was submitted by virtual Radiology.
[2016-12-22] MEDS ORDERED: Naproxen 550 mg Tab PO PRN (10:00)
--- NOTE | 2016-12-22 10:24 | CARD ---
APPROVED REPORT EKG Measurement Heart [id number] <Conclusion> Normal sinus rhythm Voltage criteria for left ventricular hypertrophy Abnormal ECG
--- NOTE | 2016-12-22 13:32 | DS ---
The patient is 56 years old, seen and examined, lying in bed. She seems to be much better. No cough , no congestion, no fever, no chills, no nausea, vomiting, no diarrhea, no headache. She states she feels a lot better compared to yesterday. PHYSICAL EXAMINATION: VITAL SIGNS: She is afebrile, pulse 65, respirations 20, blood pressure 129/87. LUNGS: Bilateral fair airflow, no rhonchi or crackle. HEART: S1, S2 audible. ABDOMEN: Soft, nontender, no rebound, no guarding. NEUROLOGIC: The patient is awake and alert, communicative. LABORATORY EXAM: There is no new lab available today. ASSESSMENT: 1. Uncontrolled hypertension. 2. Intractable headache that has resolved. 3. Hypertension. 4. Coronary artery disease. 5. Nonocclusive ____, had cardiac catheterization 2 years ago, was unremarkable. 6. Anxiety disorder. 7. History of depression. 8. Rheumatoid arthritis. PLAN: The patient is on aspirin and ____ as needed. She is clinically stable and will be discharged home today. She will resume on medication. She was seen by nautical instrument mechanic and she will follow with them. Goldie Bowen MD cc: [phone] TT: 12/22/2016 13:31:40 sn
== END 2016-12-22 12:52 | disposition home or self-care (01) ==
LOC: ED 16:55 → ERH 21:21 → 3RNO 22:49
PROVIDERS: ADMIT Internal Medicine; ATTEND Internal Medicine
DX: I10 Essential (primary) hypertension (principal); R51 Headache; I25.10 Atherosclerotic heart disease of native coronary artery without angina pectoris; F41.9 Anxiety disorder, unspecified; F32.89 Other specified depressive episodes; M06.9 Rheumatoid arthritis, unspecified; E11.9 Type 2 diabetes mellitus without complications; E78.5 Hyperlipidemia, unspecified; F43.10 Post-traumatic stress disorder, unspecified; K21.9 Gastro-esophageal reflux disease without esophagitis; Z79.4 Long term (current) use of insulin; Z79.899 Other long term (current) drug therapy; Z86.73 Personal history of transient ischemic attack (TIA), and cerebral infarction without residual deficits; Z87.440 Personal history of urinary (tract) infections; Z87.891 Personal history of nicotine dependence; Z90.710 Acquired absence of both cervix and uterus; Z95.5 Presence of coronary angioplasty implant and graft; R53.1 Weakness; H53.8 Other visual disturbances; R42 Dizziness and giddiness; E04.1 Nontoxic single thyroid nodule; D64.9 Anemia, unspecified; G47.00 Insomnia, unspecified; Z91.410 Personal history of adult physical and sexual abuse; Z88.6 Allergy status to analgesic agent; Z88.5 Allergy status to narcotic agent; I51.7 Cardiomegaly; R07.9 Chest pain, unspecified
CPT/HCPCS: 70450; 71010; 80053; 82550; 82948; 83615; 83880; 84484; 85025; 85610; 85730; 93005; 96374; 99285; G0378; J1885

== ENCOUNTER 2017-01-03 00:44 | Emergency (ER) | payer OTHER, BC ==
[2017-01-03 00:45] VITALS: BMI 28.3
[2017-01-03 00:53] VITALS: TEMP 98
[2017-01-03 02:22] LABS: HEMATOCRIT 37.1 % (36.0-48.0); MEAN CELL VOLUME 82.4 fL (80.0-105.0); MEAN CORPUSCULAR HEMOGLOBIN 27.8 pg (25.0-35.0); MEAN CORPUSCULAR HGB CONC 33.7 g/dl (31.0-37.0); MEAN PLATELET VOLUME 10.3 fl (7.0-11.0); RED CELL DISTRIBUTION WIDTH 14.3 % (11.5-14.5)
[2017-01-03 02:31] LABS: ALB/GLOB RATIO 1.2 (1.1-1.8); ALKALINE PHOSPHATASE 118 U/L (38-133); ALT/SGPT 27 U/L (7-56); AST/SGOT 25 U/L (15-39); BILIRUBIN,TOTAL 0.8 mg/dL (0.2-1.3); BLOOD UREA NITROGEN 19 mg/dL (7-21); CALCIUM 9.5 mg/dL (8.4-10.5); CARBON DIOXIDE 30 mmol/L (21-33); CHLORIDE 98 mmol/L (98-107); GFR AFRICAN-AMERICAN > 60; POTASSIUM 4.5 mmol/L (3.6-5.0); SODIUM 137 mmol/L (132-148); TOTAL PROTEIN 8.1 g/dL (5.8-8.3)
[2017-01-03 02:51] LABS: GLUCOSE,RANDOM 302 mg/dL (70-110)
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
[2017-01-03 03:02] VITALS: BP 146/95; PULSE 82; RESP 16; O2SAT 97
== END 2017-01-03 03:54 | disposition home or self-care (01) ==
LOC: ED 00:44
DX: R60.9 Edema, unspecified (principal)

== ENCOUNTER 2017-12-08 17:02 | Observation (INO) | payer OTHER, BC ==
[2017-12-08 17:06] VITALS: BMI 28.8
--- NOTE | 2017-12-08 17:48 | ED PDOC ---
Arrival/HPI - General Historian: Patient - General Chief Complaint: High Blood Pressure Time Seen by Provider: 12/08/17 17:05 - History of Present Illness Narrative History of Present Illness (Text): 12/08/17 17:25 A 57 year old female, whose past medical history includes hypertension and diabetes, presents to the emergency department complaining of mild chest pain and high blood pressure. Patient reports During work, noticed blood pressure was elevated at 213 systolic. Patient is unable to characterize chest pain. Patient denies any fever, headache, or any other complaints at this time. No PMD (Anthony Fernández) Past Medical History - Provider Review Nursing Documentation Reviewed: Yes - Infectious Disease Hx of Infectious Diseases: None - Tetanus Immunization Tetanus Immunization: Unknown - Cardiac Hx Hypertension: Yes - Pulmonary Hx Asthma: Yes (In the Past) - Neurological Hx Transient Ischemic Attacks (TIA): Yes (Questionable JUL 2014) - HEENT Hx HEENT Disorder: No - Renal Hx Renal Disorder: No - Endocrine/Metabolic Hx Endocrine Disorders: Yes Hx Diabetes Mellitus Type 2: Yes - Hematological/Oncological Hx Anemia: Yes - Integumentary Hx Dermatological Disorder: No - Musculoskeletal/Rheumatological Hx Arthritis: Yes - Gastrointestinal Hx Gastritis: Yes - Psychiatric Hx Anxiety: Yes Hx Depression: Yes Hx Post Traumatic Stress Disorder: Yes Hx Substance Use: No - Anesthesia Hx Anesthesia: Yes Hx Anesthesia Reactions: Yes (difficulty awakening,combative) Hx Malignant Hyperthermia: No - Suicidal Assessment Feels Threatened In Home Enviroment: No Family/Social History - Physician Review Nursing Documentation Reviewed: Yes Family/Social History: No Known Family HX Smoking Status: Never Smoked Hx Alcohol Use: No Hx Substance Use: No Allergies/Home Meds Allergies/Adverse Reactions: Allergies acetaminophen [From Percocet] Adverse Reaction (Intermediate, Verified 01/27/17 11:27) VOMITING oxycodone HCl [From Percocet] Adverse Reaction (Intermediate, Verified 02/10/17 15:31) VOMITING Home Medications: Home Meds Medication Instructions Recorded Confirmed Atorvastatin [Lipitor] 10 mg PO DIN 12/03/16 12/08/17 Insulin Detemir [Levemir] 30 unit SC HS 12/03/16 12/08/17 Insulin Lispro Mix 75/25 [HumaLOG 15 units SC ACBD 12/03/16 12/08/17 Mix 75/25] cloNIDine [Catapres] 0.2 mg PO DAILY 12/03/16 12/08/17 Lorazepam [Ativan] 0.5 mg PO AMHS PRN 04/09/17 12/08/17 Zolpidem Tartrate [Ambien] 10 mg PO HS PRN 04/09/17 12/08/17 Review of Systems - Physician Review All systems were reviewed & negative as marked: Yes - Review of Systems Constitutional: absent: Fevers Cardiovascular: Chest Pain (mild) Neurological: absent: Headache Physical Exam Vital Signs Reviewed: Yes Temperature: Afebrile Blood Pressure: Hypertensive Pulse: Regular Respiratory Rate: Normal Appearance: Positive for: Well-Appearing Pain Distress: None Mental Status: Positive for: Alert and Oriented X 3 - Systems Exam Head: Present: Atraumatic, Normocephalic Pupils: Present: PERRL Extroacular Muscles: Present: EOMI Conjunctiva: Present: Normal Mouth: Present: Moist Mucous Membranes Neck: Present: Normal Range of Motion Respiratory/Chest: Present: Clear to Auscultation, Good Air Exchange. No: Respiratory Distress, Accessory Muscle Use Cardiovascular: Present: Regular Rate and Rhythm, Normal S1, S2. No: Murmurs Abdomen: No: Tenderness, Distention, Peritoneal Signs Back: Present: Normal Inspection Upper Extremity: Present: Normal Inspection. No: Cyanosis, Edema Lower Extremity: Present: Normal Inspection. No: Edema Neurological: Present: GCS=15, CN II-XII Intact, Speech Normal Skin: Present: Warm, Dry, Normal Color. No: Rashes Psychiatric: Present: Alert, Oriented x 3, Normal Insight, Normal Concentration Vital Signs Temp Pulse Resp BP Pulse Ox 12/08/17 19:39 96 H 18 169/96 H 100 12/08/17 18:11 90 18 182/110 H 99 12/08/17 17:05 98.7 F 102 H 18 212/108 H 97 Medical Decision Making - Lab Interpretations I have reviewed the lab results: Yes ED Course and Treatment: 12/08/17 17:28 Impression: 57 year old female with mild chest pain and high blood pressure. Physical exam is normal. Plan: -- EKG -- Chest X-ray -- Labs -- Urinalysis -- Apresoline -- Reassess and disposition Progress Notes: EKG: Ordered, reviewed, and independently interpreted the EKG. Rate : 92 BPM Rhythm : NSR Interpretation : No ST-segment elevations or depressions, no T-wave inversions, normal intervals. Comparison : No interval changes from previous EKG (09/2017). 12/08/2017 17:48 Chest X-ray IMPRESSION: No active disease. Dictator: Abraham Gallegos MD (Anthony Fernández) 12/09/17 02:05 I had no involvement in this case. Was asked by RN to place to diet orders. ( Sathish Gutierrez) - Lab Interpretations Lab Results: 12/08/17 18:00 12/08/17 18:00 Lab Results 12/08/17 18:00: Sodium 136, Potassium 4.2, Chloride 96 L, Carbon Dioxide 27, Anion Gap 17, BUN 20, Creatinine 0.8, Est GFR ( Amer) > 60, Est GFR (Non- Af Amer) > 60, Random Glucose 369 H* D, Calcium 9.2, Magnesium 1.6 L, Total Bilirubin 0.5, AST 28, ALT 22, Alkaline Phosphatase 128 H, Lactate Dehydrogenase 581, Total Creatine Kinase 106, Troponin I < 0.01, Total Protein 7.3, Albumin 4.2, Globulin 3.2, Albumin/Globulin Ratio 1.3 12/08/17 18:00: PT 11.1, INR 0.97, APTT 38.3 H 12/08/17 18:00: WBC 7.0, RBC 4.55, Hgb 12.3, Hct 37.2, MCV 81.8, MCH 27.0, MCHC 33.1, RDW 13.2, Plt Count 224, MPV 10.7, Gran % 58.6, Lymph % (Auto) 31.5, Fisher % (Auto) 6.2 H, Eos % (Auto) 3.4, Baso % (Auto) 0.3, Gran # 4.10, Lymph # (Auto ) 2.2, Fisher # (Auto) 0.4, Eos # (Auto) 0.2, Baso # (Auto) 0.02 12/08/17 17:57: POC Glucose (mg/dL) 283 H - RAD Interpretation Radiology Orders: 12/08/17 17:28 CHEST PORTABLE [RAD] Stat - Medication Orders Current Medication Orders: Discontinued Medications Aspirin (Aspirin) 325 mg PO STAT STA Stop: 12/08/17 18:51 Last Admin: 12/08/17 19:02 Dose: 325 mg Hydralazine HCl (Apresoline) 10 mg IVP STAT STA Stop: 12/08/17 17:36 Last Admin: 12/08/17 17:59 Dose: 10 mg IVP Administration Document 12/08/17 17:59 MAUROPaula (Rec: 12/08/17 17:59 DEBORAH [id number]) Charges for Administration # of IVP Administrations 1 Insulin Human Regular (Humulin R) 4 units IV STAT STA Stop: 12/08/17 18:41 Last Admin: 12/08/17 19:01 Dose: 4 units eMAR Start Stop Document 12/08/17 19:01 DEBORAH (Rec: 12/08/17 19:01 DEBORAH [id number]) Intravenous Solution Start Date 12/08/17 Start Time 19:01 End Date 12/08/17 End time 19:01 Total Infusion Time 0 Pregabalin (Lyrica) 100 mg PO STAT STA Stop: 12/09/17 00:57 Last Admin: 12/09/17 01:35 Dose: 100 mg Zolpidem Tartrate (Ambien) 5 mg PO STAT STA PRN Reason: Protocol Stop: 12/09/17 01:06 Last Admin: 12/09/17 01:35 Dose: 5 mg - Scribe Statement The provider has reviewed the documentation as recorded by the Scribe - Scribe Statement Shell Ignacio Provider Scribe Attestation: All medical record entries made by the Scribe were at my direction and personally dictated by me. I have reviewed the chart and agree that the record accurately reflects my personal performance of the history, physical exam, medical decision making, and the department course for this patient. I have also personally directed, reviewed, and agree with the discharge instructions and disposition. (Anthony Fernández) Disposition/Present on Arrival - Present on Arrival History of DVT/PE: No History of Uncontrolled Diabetes: No Urinary Catheter: No History of Decub. Ulcer: No History Surgical Site Infection Following: None
--- NOTE | 2017-12-08 17:50 | RAD ---
HISTORY: cp COMPARISON: 06/18/2017 FINDINGS: LUNGS: No active pulmonary disease. PLEURA: No significant pleural effusion identified, no pneumothorax apparent. CARDIOVASCULAR: Normal. OSSEOUS STRUCTURES: No significant abnormalities. VISUALIZED UPPER ABDOMEN: Normal. OTHER FINDINGS: None. IMPRESSION: No active disease.
[2017-12-08 18:20] LABS: BASO # 0.02 K/mm3 (0.0-2.0); BASO % 0.3 % (0.0-3.0); EOS # 0.2 (0.0-0.7); EOS % 3.4 % (1.5-5.0); GRAN # 4.1 (1.4-6.5); GRAN % 58.6 % (50.0-68.0); HEMOGLOBIN 12.3 g/dL (12.0-16.0); LYMPH # 2.2 (1.2-3.4); LYMPH % 31.5 % (22.0-35.0); MEAN CELL VOLUME 81.8 fl (80.0-105.0); MEAN CORPUSCULAR HGB CONC 33.1 g/dl (31.0-37.0); MEAN PLATELET VOLUME 10.7 fl (7.0-11.0); MONO # 0.4 (0.1-0.6); MONO % 6.2 % (1.0-6.0); RBC 4.55 10^6/uL (3.5-6.1); RED CELL DISTRIBUTION WIDTH 13.2 % (11.5-14.5)
[2017-12-08 18:29] LABS: INR 0.97 (0.93-1.08); PARTIAL THROMBOPLASTIN TIME 38.3 Seconds (25.1-36.5); PROTHROMBIN TIME 11.1 SECONDS (9.4-12.5)
[2017-12-08 18:39] LABS: ALB/GLOB RATIO 1.3 (1.1-1.8); ALBUMIN 4.2 g/dL (3.0-4.8); ALT/SGPT 22 U/L (7-56); AST/SGOT 28 U/L (14-36); BLOOD UREA NITROGEN 20 mg/dL (7-21); CALCIUM 9.2 mg/dL (8.4-10.5); GFR AFRICAN-AMERICAN > 60; GFR NON-AFRICAN AMERICAN > 60
[2017-12-08 18:40] LABS: TROPONIN I < 0.01 ng/mL
[2017-12-08] MEDS ORDERED: Insulin Regular 1 UNITS/0.01 ML ML IV STA (18:40)
[2017-12-08] MEDS ORDERED: Dextrose 50% SYRINGE Inj (50 ml) ONE (21:12)
[2017-12-08 23:02] LABS: URINE APPEARANCE CLEAR (CLEAR); URINE COLOR YELLOW (YELLOW)
[2017-12-08 23:03] LABS: URINE BILIRUBIN NEGATIVE (NEGATIVE); URINE BLOOD NEGATIVE (NEGATIVE); URINE GLUCOSE (UA) >1000 mg/dL (NEGATIVE); URINE LEUKOCYTE ESTERASE Negative Leu/uL (NEGATIVE); URINE PROTEIN TRACE mg/dL (<30 mg/dL); URINE UROBILINOGEN 0.2 E.U./dL (<1 E.U./dL)
[2017-12-08 23:04] LABS: URINE BACTERIA FEW (NEG); URINE RBC 0 - 2 /hpf (0-2); URINE WBC NEGATIVE /hpf (0-6)
[2017-12-09] MEDS: TELMISARTAN PO SCH (09:41)
[2017-12-09] MEDS: AMLODIPINE PO SCH (09:41)
[2017-12-09 10:41] LABS: HDL CHOLESTEROL 38 mg/dL (29-60)
[2017-12-09 10:53] LABS: LDL CHOLESTEROL 136 mg/dL (0-129)
[2017-12-09 10:56] LABS: TROPONIN I < 0.01 ng/mL
--- NOTE | 2017-12-09 11:13 | CARD ---
APPROVED REPORT EKG Measurement Heart [id number] <Conclusion> Normal sinus rhythm Voltage criteria for left ventricular hypertrophy Prolonged QT. Non Specific ST_T Changes.
[2017-12-09] MEDS: Insulin Reg-LOW-Coverage SC SCH ×3 (11:55→21:47)
[2017-12-09] MEDS: Insulin Lispro (humaLOG) MIX 75/25(10 ml) SC SCH (17:24)
[2017-12-09 18:38] LABS: FOLATE 14.7 ng/mL
--- NOTE | 2017-12-09 18:42 | CON ---
DATE: CARDIOLOGY CONSULT REASON FOR CONSULTATION: Chest pain and uncontrolled hypertension. HISTORY OF PRESENT ILLNESS: The patient is a 57-year-old female, who is employee of [employer] at [employer] [employer], who has a history of longstanding hypertension, diabetes mellitus, history of atypical chest pain. Cardiac catheterization was done twice in the past, which was unremarkable and numerous stress tests were negative. While at work yesterday, she experienced headache and was noted her systolic blood pressure to be of 200 and the patient's picked her from work, took her home and from home, went to [facility]. Initial blood pressure recorded was with a heart rate of 102. The patient describes the chest pain as sharp, nonradiating. The patient denies any shortness of breath. SOCIAL HISTORY: Nonsmoker, nondrinker. MEDICATIONS: Home medications include Lyrica, telmisartan/amlodipine 80/5 mg daily, clonidine 0.2 mg daily. Lipitor 20 mg once a day. Ambien 10 mg once a day. Ativan 0.5 mg p.o. every morning and at bedtime p.r.n. The current hospital medications are Ambien 5 mg at bedtime, aspirin 325 mg once a day, Ativan 0.5 mg twice a day p.r.n. for anxiety, clonidine 0.2 mg once a day, Lipitor 10 mg once a day, Lyrica 100 mg at bedtime as well as telmisartan/amlodipine as home medication dose. REVIEW OF SYSTEMS: No nausea or vomiting. No dizziness or syncope. PHYSICAL EXAMINATION: GENERAL: The patient is a middle-aged female, who does not appear to be in any distress. VITAL SIGNS: Most recent blood pressure this morning at 09:46 a.m. was 126/77, heart rate 75, temperature 98.6, respirations 18. HEENT: Normocephalic. CHEST: Clear. HEART: S1 and S2 regular. ABDOMEN: Soft. EXTREMITIES: No edema. LABORATORY DATA: SMA-7: Sodium 136, potassium 4.2, chloride 96, CO2 of 27, glucose 369, BUN 20, creatinine 0.8. Triglycerides 183, total cholesterol 218, LDL cholesterol 136, HDL cholesterol 38. Hemoglobin and hematocrit, white count and platelet count are within normal limit. EKG revealed sinus rhythm. LVH by voltage. Chest x-ray unremarkable. ASSESSMENT: 1. Atypical chest pain. Rule out myocardial infarction. 2. Uncontrolled hypertension. 3. Uncontrolled diabetes mellitus. 4. History of depression in the past. RECOMMENDATIONS: Continue current aspirin 325 mg once a day, Ativan 0.5 mg twice a day p.r.n., clonidine 0.2 mg daily, Lipitor 10 mg once a day and telmisartan/amlodipine at 80/5 mg daily. Repeat 12-lead EKG and one set of cardiac enzymes. If both are unremarkable, no further cardiac workup will be considered. Marino Arora MD
[2017-12-09] MEDS ORDERED: Insulin Detemir 100 units/ml Vial (Levemir) SC SCH (22:00)
--- NOTE | 2017-12-10 05:03 | PN ---
DATE: 12/09/2017 SUBJECTIVE: The patient is a 57-year-old female. The patient is seen and examined on the bedside, sleepy, arousable. Moving all 4 extremities. Chest pain is getting better. No nausea, vomiting or diarrhea. No fever, no chills, but having headache. ALLERGIC WITH TYLENOL, do not want Tylenol, Motrin 400 mg one dose was given. 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 PHYSICAL EXAMINATION: VITAL SIGNS: Blood pressure 127/77, heart rate 75, temperature 98.6, respiratory rate 18. HEENT: Head normocephalic, atraumatic. Eyes, PERRLA. Extraocular muscles intact. Conjunctivae clear. Nose patent. Mucous membrane moist. NECK: Supple. No carotid bruit. No JVD or thyromegaly. CHEST: Bilaterally symmetrical. HEART: S1 and S2 positive. LUNGS: Clear to auscultation. ABDOMEN: Soft. Bowel sounds positive. No organomegaly. EXTREMITIES: No edema. No cyanosis. NEUROLOGICAL: The patient is sleepy. Moving all 4 extremities while awake. No neurological deficit. LABORATORY DATA: Sodium 136, potassium 4.2, glucose 369, triglyceride 183. Chest x-ray unremarkable. ASSESSMENT AND PLAN: Ms. Saida Linares has atypical chest pain, rule out myocardial infarction, uncontrolled hypertension, uncontrolled diabetes mellitus, history of depression in the past, history of headache. We will continue aspirin, Ativan, clonidine, Lipitor, telmisartan/amlodipine at 80/5 mg. Continue Lipitor for hypercholesterolemia. A 12-lead EKG and cardiac enzymes are within normal limits. According to cement despatch operator, no further workup needed. Discussion done with Dr. Arora who knows this patient very well. She is his private patient. Chest x-rays reviewed by me. We will continue present treatment. Repeat labs. We will follow up. Glo Guajardo MD
[2017-12-10 06:11] VITALS: O2SAT 96
[2017-12-10 07:00] LABS: HEMOGLOBIN 11.8 g/dL (12.0-16.0); MEAN CELL VOLUME 81.4 fl (80.0-105.0); MEAN CORPUSCULAR HEMOGLOBIN 26.7 pg (25.0-35.0); MEAN CORPUSCULAR HGB CONC 32.8 g/dl (31.0-37.0); MEAN PLATELET VOLUME 10.2 fl (7.0-11.0); RBC 4.42 10^6/uL (3.5-6.1); RED CELL DISTRIBUTION WIDTH 13.3 % (11.5-14.5); WHITE BLOOD COUNT 6.1 10^3/ul (4.5-11.0)
[2017-12-10 07:20] LABS: BLOOD UREA NITROGEN 20 mg/dL (7-21); CALCIUM 9.1 mg/dL (8.4-10.5); GFR AFRICAN-AMERICAN > 60; GFR NON-AFRICAN AMERICAN > 60
[2017-12-10] MEDS: Insulin Lispro (humaLOG) MIX 75/25(10 ml) SC SCH (08:42)
[2017-12-10] MEDS: Insulin Reg-LOW-Coverage SC SCH ×2 (08:43→12:45)
[2017-12-10] MEDS: AMLODIPINE PO SCH (10:11)
[2017-12-10] MEDS: TELMISARTAN PO SCH (10:11)
[2017-12-10] MEDS ORDERED: Potassium Chloride 20 mEq ER Tab PO ONE (10:19)
[2017-12-10 12:08] VITALS: BP 138/82; PULSE 67; RESP 18; TEMP 98
--- NOTE | 2017-12-11 01:47 | HP ---
Patient was seen and examined on bedside in the ER on 12/08/2017. CHIEF COMPLAINT: High blood pressure, chest pain. HISTORY OF PRESENT ILLNESS: Ms. Saida Linares is a 57-year-old female with past medical history of hypertension, diabetes mellitus, who came to the Emergency Room Department of [facility] complaining of mild chest pain, high blood pressure. Patient reports during work, noticed the blood pressure was elevated to 230 in systolic. Patient is unable to characterize the chest pain. The patient denies fevers or chills. No nausea, vomiting or diarrhea. No headache, no dizziness. PAST MEDICAL HISTORY: Hypertension, asthma, history of TIA as per patient, diabetes mellitus type 2, anemia, arthritis, gastritis, anxiety, depression, post-traumatic stress disorder, difficultly awakening, combative during anesthesia reaction. FAMILY HISTORY: Father and mother, noncontributory. HABITS: Never smoker, no drugs, no ethanol. ALLERGIES: PATIENT IS ALLERGIC TO ACETAMINOPHEN, OXYCODONE. HOME MEDICATIONS: Lipitor, Levemir, insulin, clonidine, Ativan, Ambien. REVIEW OF SYSTEMS: Patient is examined at the bedside in the ER. Complaining about chest pain, mild. No headache, no fever, no chills. No nausea, vomiting or diarrhea. No hematuria or hematochezia. No swelling of the legs. No dysuria. PHYSICAL EXAMINATION: VITAL SIGNS: Temperature 98.7; pulse 102; respiratory rate 18; blood pressure 212/108, repeat 182/110, and third reading was 159/96. HEENT: Head normocephalic, atraumatic. Eyes, PERRLA. Extraocular muscles intact. Conjunctivae clear. Nose patent. Mucosus membrane moist. NECK: Supple, no carotid bruit. No JVD or thyromegaly. CHEST: Bilaterally symmetrical. HEART: S1, S2 positive. LUNGS: Clear to auscultation. ABDOMEN: Soft, bowel sounds present. No organomegaly. EXTREMITIES: No edema, no cyanosis. NEUROLOGICAL: Patient is awake, alert, moving all 4 extremities, no focal deficit. LABORATORY DATA: White blood cells 7, hemoglobin 12.3, hematocrit 37.2, platelets 224. Sodium 136, potassium 4.2, BUN 20, creatinine 0.8, glucose 369. ASSESSMENT AND PLAN: Ms. Saida Linares is a 57-year-old lady with hyperglycemia; diabetes mellitus, uncontrolled, came with accelerated hypertension; chest pain; history of multiple medical problems; history of asthma in the past, now stable; transient ischemic attack as per patient. Patient is not my private patient, that is why I do not know too much about her past history, but according to patient, she has a history of transient ischemic attack. Diabetes mellitus type 2, arthritis, gastritis, anxiety, depression, never smoker, never drugs. We admitted that patient to change in the medication. I will consult with Dr. Marino Arora. That is the patient's private ultrasound supervisor. Even I have a discussion with him done. Repeat labs. We will follow up. Glo Guajardo MD
--- NOTE | 2017-12-11 08:47 | PN ---
DATE: 12/10/2017 SUBJECTIVE: The patient denies chest pain. No headache or dizziness. PHYSICAL EXAMINATION: VITAL SIGNS: Blood pressure 142/95, heart rate 75, temperature 98.6, respirations 20. HEENT: Normocephalic. CHEST: Clear. HEART: S1 and S2 regular. ABDOMEN: Soft. EXTREMITIES: No edema. LABORATORY DATA: Hemoglobin and hematocrit 11.8 and 36, white count and platelet count are within normal limits. Sodium 138, potassium 3.5, chloride 97, CO2 is 31, glucose 115, BUN 20, creatinine 0.8. ASSESSMENT: 1. Uncontrolled hypertension. 2. Uncontrolled diabetes mellitus. 3. Hyperlipidemia. 4. Borderline hypokalemia. RECOMMENDATIONS: Continue clonidine 0.2 mg twice a day, hydrochlorothiazide 25 mg once a day, aspirin 325 mg once a day, Lipitor 10 mg once a day. I did order K-Dur 40 mEq p.o. now and Lasix 40 mg p.o. as a single dose prior to discharge. The patient was instructed to do low level exercise such as walking. Marino Arora MD
== END 2017-12-10 15:53 | disposition home or self-care (01) ==
LOC: ED 17:02 → ERH 19:36 → 2RSO 12-09 02:32
PROVIDERS: ADMIT Internal Medicine; ATTEND Internal Medicine
DX: R07.89 Other chest pain (principal); I10 Essential (primary) hypertension; E11.65 Type 2 diabetes mellitus with hyperglycemia; E87.6 Hypokalemia; F32.9 Major depressive disorder, single episode, unspecified; M19.90 Unspecified osteoarthritis, unspecified site; K29.70 Gastritis, unspecified, without bleeding; J45.909 Unspecified asthma, uncomplicated; F43.10 Post-traumatic stress disorder, unspecified; D64.9 Anemia, unspecified; E78.00 Pure hypercholesterolemia, unspecified; I25.2 Old myocardial infarction; Z79.4 Long term (current) use of insulin; Z86.73 Personal history of transient ischemic attack (TIA), and cerebral infarction without residual deficits
CPT/HCPCS: 36415; 71045; 80048; 80053; 80061; 81001; 82550; 82607; 82746; 82948; 83036; 83615; 83735; 84443; 84484; 85025; 85027; 85610; 85730; 93005; 96374; 99285; G0378; J0360

== ENCOUNTER 2018-06-25 16:36 | Observation (INO) | payer BC, OTHER ==
[2018-06-25 16:46] VITALS: BMI 28.3
--- NOTE | 2018-06-25 17:40 | ED PDOC ---
Arrival/HPI - General Historian: Patient - History of Present Illness Narrative History of Present Illness (Text): This is a 58 year old female with PMH of HTN, IDDM2, diastolic CHF and anxiety who presents to the ED for chest pain which started at 2pm today. Patient was sitting at work when she started to feel a twinging pressure in the middle of her chest, nonradiating, associated with lightheadedness. Pain is intermittent and comes and goes on its own. Pt took her BP at home and it was 193/99. She went home hoping that the pain would go away, but it returned. She feels that the pain is worsening. She any fevers, chills, headache, blurry vision, shortness of breath, abdominal pain, n/v/d, leg pain or swelling. Patient has had no recent travel. Cardio: Dr. Arora PMD: Adriano Berry PMH: HTN, IDDM2, anxiety, diastolic CHF noted on Echo done in march 2018. Psurg: cardiac cath (2013), R rotator cuff (2015), gastric band (2007), gastric band replacement (2009), gastric band removal 2015 Famhx: Mom: HTN, stroke at 70, Dad: open heart surgery at 77 Meds: Humalog 15 u before meals, Lantus 30 u HS, Twynsta 80/20mg daily, Clonidine 0.3 mg PO daily Allx: Percocet (nausea) Social: stopped smoking in 1997 (1 pack per week for 20 years), denies alcohol or drugs Time/Duration: 4-6 hours Symptom Onset: Sudden Symptom Course: Worsening Quality: Pressure, Dullness, Other (sharp twinging) <Anjel Sierra - Last Filed: 06/25/18 20:22> <Basilio Malin DO - Last Filed: 06/25/18 20:41> - General Chief Complaint: Chest Pain Time Seen by Provider: 06/25/18 16:58 Past Medical History - Provider Review Nursing Documentation Reviewed: Yes - Infectious Disease Hx of Infectious Diseases: None - Tetanus Immunization Tetanus Immunization: Unknown - Reproductive Menopause: Yes - Cardiac Hx Hypertension: Yes - Pulmonary Hx Asthma: Yes - Neurological Hx Transient Ischemic Attacks (TIA): Yes - HEENT Hx HEENT Disorder: No - Renal Hx Renal Disorder: No - Endocrine/Metabolic Hx Endocrine Disorders: Yes Hx Diabetes Mellitus Type 2: Yes - Hematological/Oncological Hx Anemia: Yes - Integumentary Hx Dermatological Disorder: No - Musculoskeletal/Rheumatological Hx Arthritis: Yes - Gastrointestinal Hx Gastritis: Yes - Psychiatric Hx Anxiety: Yes Hx Depression: Yes Hx Post Traumatic Stress Disorder: Yes Hx Substance Use: No - Anesthesia Hx Anesthesia: Yes Hx Anesthesia Reactions: Yes (difficulty awakening,combative) Hx Malignant Hyperthermia: No - Suicidal Assessment Feels Threatened In Home Enviroment: No <Anjel Sierra - Last Filed: 06/25/18 20:22> Family/Social History - Physician Review Nursing Documentation Reviewed: Yes Family/Social History: Unknown Family HX Smoking Status: Never Smoked Hx Alcohol Use: No Hx Substance Use: No <Anjel Sierra - Last Filed: 06/25/18 20:22> Allergies/Home Meds <Anjel Sierra - Last Filed: 06/25/18 20:22> <Basilio Malin DO - Last Filed: 06/25/18 20:41> Allergies/Adverse Reactions: Allergies acetaminophen [From Percocet] Adverse Reaction (Intermediate, Verified 06/25/18 16:54) VOMITING oxycodone HCl [From Percocet] Adverse Reaction (Intermediate, Verified 06/25/18 16:54) VOMITING Home Medications: Home Meds Medication Instructions Recorded Confirmed Lorazepam [Ativan] 0.5 mg PO AMHS PRN 04/09/17 05/15/18 Zolpidem Tartrate [Ambien] 10 mg PO HS PRN 04/09/17 05/15/18 Review of Systems - Review of Systems Constitutional: Normal Eyes: Normal ENT: Normal Respiratory: Normal. absent: SOB, Cough, Wheezing Cardiovascular: Chest Pain Gastrointestinal: Normal. absent: Abdominal Pain, Nausea, Vomiting Genitourinary Female: Normal Musculoskeletal: Normal Skin: Normal Neurological: Normal. absent: Headache, Dizziness, Focal Weakness, Speech Changes, Facial Droop Endocrine: Normal Hemo/Lymphatic: Normal Psychiatric: Normal <Anjel Sierra - Last Filed: 06/25/18 20:22> Physical Exam Vital Signs Reviewed: Yes Vital Signs Temp Pulse Resp BP Pulse Ox 06/25/18 16:45 98.3 F 96 H 18 207/107 H 99 Temperature: Afebrile Blood Pressure: Hypertensive (repeat BP at bedside is 173/92) Pulse: Regular Respiratory Rate: Normal Appearance: Positive for: Well-Appearing, Non-Toxic, Comfortable Pain Distress: None Mental Status: Positive for: Alert and Oriented X 3 - Systems Exam Head: Present: Atraumatic, Normocephalic Extroacular Muscles: Present: EOMI Mouth: Present: Moist Mucous Membranes Respiratory/Chest: Present: Clear to Auscultation Cardiovascular: Present: Regular Rate and Rhythm, Normal S1, S2. No: Murmurs Abdomen: Present: Normal Bowel Sounds. No: Tenderness, Distention, Peritoneal Signs, Rebound, Guarding Upper Extremity: Present: Normal Inspection, NORMAL PULSES. No: Edema Lower Extremity: Present: Normal Inspection, NORMAL PULSES. No: Edema, CALF TENDERNESS, Tenderness Neurological: Present: GCS=15 Skin: Present: Warm, Dry Psychiatric: Present: Alert, Oriented x 3 <Anjel Sierra - Last Filed: 06/25/18 20:22> Vital Signs Temp Pulse Pulse Resp BP Pulse Ox 06/25/18 17:35 80 06/25/18 16:45 98.3 F 96 H 18 207/107 H 99 <Basilio Malin DO - Last Filed: 06/25/18 20:41> Medical Decision Making ED Course and Treatment: CBC, CMP, Cardiac iso, CXR, EKG. Attending discussed the case with Dr. Guajardo, who will accept the pt. Pt palced observation on telemetry. - RAD Interpretation Radiology Orders: 06/25/18 17:18 CHEST PORTABLE [RAD] Stat - EKG Interpretation EKG Interpretation (Text): EKG shows NSR at 94, LVH, nonspecific STTW changes; IL is 144, QTc is 462; as read by ED attending Interpreted by ED Physician: Yes <Anjel Sierra - Last Filed: 06/25/18 20:22> ED Course and Treatment: 06/25/18 18:05 Patient is a 58 year old male presenting to the emergency room complaining of chest pain. In agreement with resident note, which includes further HPI details. Patient was seen and evaluated with resident, came up with plan and treatment together. - Lab Interpretations Lab Results: 06/25/18 17:37 Lab Results 06/25/18 17:37: WBC 7.8, RBC 4.69, Hgb 12.9, Hct 39.0, MCV 83.2, MCH 27.5, MCHC 33.1, RDW 13.5, Plt Count 261, MPV 10.5, Gran % 58.8, Lymph % (Auto) 30.1, Wilson % (Auto) 5.8, Eos % (Auto) 4.9, Baso % (Auto) 0.4, Gran # 4.57, Lymph # (Auto) 2.3, Wilson # (Auto) 0.5, Eos # (Auto) 0.4, Baso # (Auto) 0.03 - RAD Interpretation Radiology Orders: 06/25/18 17:18 CHEST PORTABLE [RAD] Stat <Basilio Malin DO - Last Filed: 06/25/18 20:41> - PA / GOLF BALL INSPECTOR / Resident Statement / has reviewed & agrees with the documentation as recorded. / has examined the patient and agrees with the treatment plan. - Scribe Statement The provider has reviewed the documentation as recorded by the Shiva Hussein All medical record entries made by the Stefaniibdeepak were at my direction and personally dictated by me. I have reviewed the chart and agree that the record accurately reflects my personal performance of the history, physical exam, medical decision making, and the department course for this patient. I have also personally directed, reviewed, and agree with the discharge instructions and disposition. <Basilio Malin DO - Last Filed: 06/25/18 20:41> Disposition/Present on Arrival - Present on Arrival Any Indicators Present on Arrival: No History of DVT/PE: No History of Uncontrolled Diabetes: No Urinary Catheter: No History of Decub. Ulcer: No History Surgical Site Infection Following: None - Disposition Have Diagnosis and Disposition been Completed?: Yes Disposition Time: 19:59 Patient Plan: Observation, Telemetry <Anjel Sierra - Last Filed: 06/25/18 20:22> - Disposition Have Diagnosis and Disposition been Completed?: Yes Disposition Time: 18:00 <Basilio Malin DO - Last Filed: 06/25/18 20:41> - Disposition Diagnosis: Chest pain, Hypertension, Hyperglycemia Disposition: HOSPITALIZED Patient Problems: Current Active Problems Problem Status Onset Chest pain Acute Hyperglycemia Chronic Hypertension Chronic Condition: STABLE
[2018-06-25 17:46] LABS: BASO # 0.03 K/mm3 (0.0-2.0); BASO % 0.4 % (0.0-3.0); EOS # 0.4 (0.0-0.7); EOS % 4.9 % (1.5-5.0); GRAN # 4.57 (1.4-6.5); GRAN % 58.8 % (50.0-68.0); HEMOGLOBIN 12.9 g/dL (12.0-16.0); LYMPH # 2.3 (1.2-3.4); LYMPH % 30.1 % (22.0-35.0); MEAN CELL VOLUME 83.2 fl (80.0-105.0); MEAN CORPUSCULAR HEMOGLOBIN 27.5 pg (25.0-35.0); MEAN CORPUSCULAR HGB CONC 33.1 g/dl (31.0-37.0); MEAN PLATELET VOLUME 10.5 fl (7.0-11.0); MONO # 0.5 (0.1-0.6); MONO % 5.8 % (1.0-6.0); RBC 4.69 10^6/uL (3.5-6.1); RED CELL DISTRIBUTION WIDTH 13.5 % (11.5-14.5); WHITE BLOOD COUNT 7.8 10^3/uL (4.5-11.0)
--- NOTE | 2018-06-25 18:57 | RAD ---
Date of service: 06/25/2018 HISTORY: chest pain COMPARISON: 12/08/2017. FINDINGS: LUNGS: No active pulmonary disease. PLEURA: No significant pleural effusion identified, no pneumothorax apparent. CARDIOVASCULAR: No atherosclerotic calcification present No radiographic findings to suggest acute or significant cardiovascular disease. OSSEOUS STRUCTURES: No significant abnormalities. VISUALIZED UPPER ABDOMEN: Normal. OTHER FINDINGS: None. IMPRESSION: No active disease. No significant interval change compared to the prior examination(s).
[2018-06-25 19:13] LABS: ALB/GLOB RATIO 1.1 (1.1-1.8); ALBUMIN 4.2 g/dL (3.0-4.8); ALT/SGPT 21 U/L (7-56); AST/SGOT 27 U/L (14-36); BLOOD UREA NITROGEN 15 mg/dL (7-21); CALCIUM 9.3 mg/dL (8.4-10.5); GFR NON-AFRICAN AMERICAN > 60
[2018-06-25 19:16] LABS: B-TYPE NATRIURETIC PEPTIDE 211 pg/mL (0-450); TROPONIN I 0.01 ng/mL
[2018-06-25] MEDS ORDERED: Insulin Regular 1 UNITS/0.01 ML ML IVP STA (19:59)
[2018-06-25] MEDS: Insulin Detemir 100 units/ml Vial (Levemir) SC SCH (22:46)
[2018-06-25] MEDS ORDERED: Influenza Vaccine 60 mcg/0.5 mL SYR (4YR UP) IM ONE (23:13)
[2018-06-25] MEDS ORDERED: Pneumococcal 23-Valent Vaccine IM ONE (23:13)
[2018-06-26] MEDS ORDERED: Insulin Regular 1 UNITS/0.01 ML ML SC ONE (02:37)
--- NOTE | 2018-06-26 09:44 | CARD ---
APPROVED REPORT Date of service: 06/25/2018 EKG Measurement Heart [id number] <Conclusion> Normal sinus rhythm Voltage criteria for left ventricular hypertrophy Nonspecific T wave abnormality Prolonged QT Abnormal ECG
[2018-06-26] MEDS: Insulin Detemir 100 units/ml Vial (Levemir) SC SCH (21:56)
[2018-06-26] MEDS: Insulin Lispro (humaLOG) MEDIUM Coverage SC SCH (22:00)
[2018-06-27 01:06] VITALS: O2SAT 99
[2018-06-27] MEDS: Insulin Lispro (humaLOG) MEDIUM Coverage SC SCH ×3 (07:30→16:59)
[2018-06-27 07:44] LABS: B-TYPE NATRIURETIC PEPTIDE 68.2 pg/mL (0-450)
--- NOTE | 2018-06-27 09:58 | HP ---
DATE OF EXAM: 06/26/2018 The patient seen and examined at the bedside on 06/26/2018. CHIEF COMPLAINT: Chest pain. HISTORY OF PRESENT ILLNESS: Ms. Saida Linares is a 58 years old lady, well known to me from previous admission with past medical history of hypertension, clinical diabetes mellitus, congestive heart failure, anxiety, came to the Emergency Room for chest pain that started the day of admission. The patient was sitting at work when she started to feel a tingling pressure in the middle of her chest, no radiation, associated with lightheadedness, pain intermittent and comes and goes the patient took her blood pressure at home and it was 197/99 as per patient. She went home hoping that the pain would go away but it returned and she feels that the pain is worsening. She does not have any fever or chills. No nausea, vomiting, or diarrhea, and no hematuria or hematochezia. PAST MEDICAL HISTORY: Hypertension, clinical diabetes mellitus, anxiety, diastolic congestive heart failure, history of cardiac catheterization, rotator cuff injury; gastric band replacement, then removal. FAMILY HISTORY: Father and mother, noncontributory. MEDICATIONS: Noted by me. SOCIAL HISTORY: Stopped smoking in 1997. No alcohol or substance abuse. REVIEW OF SYSTEMS: The patient was seen and examined at the bedside in her room, that moment looking comfortable. No fever, no chills. No nausea, vomiting, diarrhea. No headache, no dizziness. No chest pain. No palpitation. PHYSICAL EXAMINATION VITAL SIGNS: Temperature 98.9, pulse 93, blood pressure 156/99, respiratory rate 20. HEENT: Head, normocephalic, atraumatic. Eyes, PERRLA. Extraocular muscles are intact. Conjunctivae are clear. Nose patent. Mucous membranes moist. NECK: Supple. No carotid bruits. No JVD or thyromegaly. CHEST: Bilaterally symmetrical. HEART: S1, S2 positive. LUNGS: Clear to auscultation. ABDOMEN: Soft. Bowel sounds present. No organomegaly. EXTREMITIES: No edema. No cyanosis. NEUROLOGIC: The patient is awake, alert. Moving all 4 extremities. No focal deficits. LABORATORY DATA: White blood cells 7.8, hemoglobin 12.9, hematocrit 39.0, platelets 261. Sodium 133, potassium 3.9, BUN 15, creatinine 0.8, glucose 213. ASSESSMENT AND PLAN: Ms. Saida Linares is a 58 years old female with hypochloremia, hyperglycemia, who came with chest pain and cardiac enzymes three sets were done, were negative. History of multiple medical problems, hypertension, clinical diabetes mellitus, diastolic congestive heart failure, anxiety, history of cardiac catheterization, history of gastric band placement and removal. We admitted the patient, did three sets of cardiac enzymes. Cardiology consult acquired. Restart with the home medications, GI prophylaxis and repeat labs and follow up Glo Guajardo MD MTDDemarcus
[2018-06-27 12:13] VITALS: RESP 18
--- NOTE | 2018-06-27 15:14 | CON ---
DATE OF CONSULTATION: 06/26/2018 REASON FOR CONSULTATION: Chest pain. HISTORY OF PRESENT ILLNESS: The patient is a 58-year-old female who is a [employer] employee, has a history of hypertension and diabetes mellitus as well as hyperlipidemia. The patient has multiple admissions for atypical chest pain, uncontrolled hypertension and uncontrolled diabetes mellitus. The patient presented at this time because of chest tightness following her work at [employer] and in the afternoon was noted to have a significantly high blood pressure, at around 02:30, [id number] before the end of her shift. The patient elected to wait and come to [facility] following that. The patient denies any chest pain at this time. She denies any nausea or vomiting and denies any leg pain or leg swelling. SOCIAL HISTORY: Nonsmoker. Nondrinker. with 2 sons. MEDICATIONS: Ambien 5 mg daily at h.s., Clonidine patch 0.2 mg weekly, Cosopt 50 mg once a day, Levemir 30 units subcutaneously daily at h.s., Lipitor 10 mg once a day, Lyrica 100 mg daily at h.s., Norvasc 10 mg once a day, Pepcid 20 mg p.o. once a day. REVIEW OF SYSTEMS: No nausea or vomiting. No dizziness or syncope. PHYSICAL EXAMINATION: GENERAL: The patient is a middle-aged female who does not appear to be in any distress. VITAL SIGNS: Blood pressure 131/84, heart rate 92, temperature 98.7, respirations 18. HEENT: Normocephalic. CHEST: Clear. HEART: S1 and S2 regular. ABDOMEN: Soft. EXTREMITIES: No edema. No calf tenderness. LABORATORY DATA: CBC today is entirely within normal limits. Three sets of troponins are negative. SMA-7 is within normal limits, except for glucose of 378 and chloride of 97. Lipid Profile: Triglyceride 170, total cholesterol 233, LDL cholesterol 168, all are elevated. EKG was reviewed and revealed sinus rhythm, LVH by voltage with nonspecific T-wave changes and prolonged QT interval. Chest x-ray revealed normal cardiac silhouette and prominent bronchovascular markings. No acute infiltrate. ASSESSMENT: 1. Atypical chest pain, myocardial infarction is ruled out. 2. Uncontrolled hypertension. 3. Uncontrolled diabetes mellitus. 4. Hyperlipidemia. RECOMMENDATIONS: In view of the patient's known history of unremarkable cardiac catheterization and the last one performed in 2013 and a negative stress test in 05/2016, the patient can be discharged on current medical management including Cozaar 50 mg once a day, Lipitor to be increased to 40 mg orally once a day. Continue Norvasc 10 mg once a day and clonidine patch. The patient can follow up with her motor vehicle inspector, Dr. Haywood, for better diabetic control. Marino Arora MD
[2018-06-27 17:38] VITALS: BP 133/78; TEMP 99
[2018-06-27 19:57] VITALS: PULSE 119
--- NOTE | 2018-06-28 03:06 | DS ---
06/27/18 CHIEF COMPLAINT: Chest pain. HISTORY OF PRESENT ILLNESS: Ms. Milagros Cintron is a 58 years old female with history of multiple medical problems, hypertension, insulin-dependent diabetes mellitus, congestive heart failure, and anxiety, came to the emergency room with chest pain. Seen by Dr. Arora, manufacturing engineer. Electrocardiogram done, chest x-ray done. Looks like pain is musculoskeletal. [employer] cleared the patient and discharged home. Follow up home medications. Follow up her manufacturing engineer and primary care physician as outpatient. PAST MEDICAL HISTORY: Hypertension, insulin-dependent diabetes mellitus, diastolic congestive heart failure, anxiety, history of gastric band and removal of the gastric band, history of stroke, and open heart surgery. We admitted the patient. Cardiology consult done. Three sets of cardiac enzymes done, it was negative. Blood pressure was under control. Cardiology cleared the patient and discharged home. Follow up with primary care physician and manufacturing engineer. PAST MEDICAL HISTORY: As above, menopause, hypertension, asthma, TIA, diabetes mellitus, arthritis, gastritis, and anxiety. FAMILY HISTORY: Father and mother noncontributory. HABITS: No smoking. No drugs. No ethanol. ALLERGIES: ALLERGIC WITH ACETAMINOPHEN, OXYCODONE. HOME MEDICATIONS: Ativan and Ambien. REVIEW OF SYSTEMS: The patient was seen and examined at the bedside, looking comfortable. No nausea, vomiting, diarrhea. No hematuria, hematochezia. No swelling of the legs. Chest pain is better. No fever. No chills. PHYSICAL EXAMINATION: VITAL SIGNS: Blood pressure 130/84, heart rate 92, temperature 98.7, respiratory rate 18. HEENT: Head is normocephalic, atraumatic. Eyes PERRLA. Extraocular muscles are intact. Conjunctivae clear. Nose patent. Mucous membranes moist. NECK: Supple. No carotid bruits. No JVD, thyromegaly. CHEST: Bilaterally symmetrical. HEART: S1, S2 positive. LUNGS: Clear to auscultation. ABDOMEN: Soft. Bowel sounds positive. No organomegaly. EXTREMITIES: No edema. No cyanosis. NEUROLOGIC: The patient is awake and alert, moving all four extremities. No focal deficits. MEDICATIONS: Ambien, clonidine, Cosopt, Levemir, Lipitor, Lyrica, Norvasc, and Pepcid. LABORATORY DATA: White blood cells 7.8, hemoglobin 12.9, hematocrit 39, platelets 261,000. Glucose 213 and 381. Hemoglobin A1c 13.7. Triglyceride 170, cholesterol 233. ASSESSMENT AND PLAN: Ms. Milagros Cintron is a 58 years old lady with really uncontrolled diabetes mellitus type 2, hemoglobin A1c 13.7. Urged to take medications regularly and go for clinical informatics educator classes with Ms. De Leon or wherever she wants to go. Hypertriglyceridemia, hypercholesterolemia, vitamin B12 deficiency, came with chest pain. Chest pain is atypical. Myocardial infarction is ruled out. As per manufacturing engineer, may be three sets of troponin are negative. Uncontrolled hypertension, uncontrolled diabetes mellitus, and hyperlipidemia. In the view of the patient's known history of unremarkable cardiac catheterization and the last one performed in 2013 and negative stress test in 05/2016. The patient can be discharged on current medications. Meds include Cozaar, Lipitor, Norvasc, and colchicine. Continue GI and DVT prophylaxis. Repeat labs. We will follow up. The patient was cleared by Dr. Arora and will continue home medications. Glo Guajardo MD VERONICA
== END 2018-06-27 18:36 | disposition home or self-care (01) ==
LOC: ED 16:36 → ERH 19:59 → 2RNO 06-26 02:05
PROVIDERS: ADMIT Internal Medicine; ATTEND Internal Medicine
DX: R07.89 Other chest pain (principal); I11.0 Hypertensive heart disease with heart failure; E11.65 Type 2 diabetes mellitus with hyperglycemia; E53.8 Deficiency of other specified B group vitamins; E78.00 Pure hypercholesterolemia, unspecified; E78.1 Pure hyperglyceridemia; E78.5 Hyperlipidemia, unspecified; F43.10 Post-traumatic stress disorder, unspecified; I50.32 Chronic diastolic (congestive) heart failure; J45.909 Unspecified asthma, uncomplicated; Z79.4 Long term (current) use of insulin; Z82.49 Family history of ischemic heart disease and other diseases of the circulatory system; Z86.73 Personal history of transient ischemic attack (TIA), and cerebral infarction without residual deficits; Z87.891 Personal history of nicotine dependence; Z98.84 Bariatric surgery status
CPT/HCPCS: 36415; 71045; 80053; 80061; 82550; 82607; 82948; 83036; 83615; 83735; 83880; 84484; 85025; 93005; 96372; 96374; 99285; G0378; J0360

== ENCOUNTER 2018-10-11 01:29 | Observation (INO) | payer OTHER, BC | END 2018-10-12 18:00 | disposition home or self-care (01) | LOC: ED 01:29 → ERH 04:30 → 3RSO 09:58 | DX: R07.89 Other chest pain (principal); E11.65 Type 2 diabetes mellitus with hyperglycemia; I11.0 Hypertensive heart disease with heart failure; I50.30 Unspecified diastolic (congestive) heart failure; I25.10 Atherosclerotic heart disease of native coronary artery without angina pectoris; E78.5 Hyperlipidemia, unspecified; I08.3 Combined rheumatic disorders of mitral, aortic and tricuspid valves; E78.00 Pure hypercholesterolemia, unspecified; F43.10 Post-traumatic stress disorder, unspecified; M70.32 Other bursitis of elbow, left elbow; M19.90 Unspecified osteoarthritis, unspecified site; F41.9 Anxiety disorder, unspecified; F32.9 Major depressive disorder, single episode, unspecified; Z87.891 Personal history of nicotine dependence; Z79.4 Long term (current) use of insulin; Z86.73 Personal history of transient ischemic attack (TIA), and cerebral infarction without residual deficits ==

== ENCOUNTER → 2018-10-21 | Day surgery (SDC) | payer OTHER, BC ==
[2018-10-11 01:29] VITALS: BMI 28.3
--- NOTE | 2018-10-20 23:42 | HP ---
DATE OF EXAM: 10/20/2018 REASON FOR ADMISSION: Left heart catheterization, possible angioplasty, recurrent chest pain, and abnormal stress test. BRIEF CLINICAL HISTORY: This is a 58-year-old female who works in the [employer] two shifts, was recently admitted on 10/11/2018 with complaint of chest pain. The patient had been seen and being followed by Dr. Arora and is an employee of the [employer]. History of hypertension, diabetes, and hyperlipidemia. History of multiple admissions with atypical chest pain, uncontrolled hypertension, and uncontrolled diabetes. In view of above, the patient underwent stress test on admission on 10/11/2018 was abnormal, so the patient is scheduled for elective cardiac cath, possible angioplasty. PAST MEDICAL HISTORY: Significant for nonobstructive coronary artery disease, status post cardiac catheterization in the past; history of stress test in the past; diabetes; hypertension; and hyperlipidemia. SOCIAL HISTORY: Denies any smoking. Denies any history of alcohol abuse. , with 2 sons. CURRENT MEDICATIONS: The patient is taking clonidine 0.25 mg patch for 24 hours 7 days, Ambien 10 mg daily, telmisartan/amlodipine combination 80/10 daily, Lyrica, Cozaar 50 mg daily, Ativan 0.5 mg p.o. at bedtime, insulin, atorvastatin, and aspirin. ALLERGIES: PERCOCET, ADVERSE REACTIONS. RECENT CARDIAC WORKUP FOLLOWS: The patient had a stress test on last admission dated 10/12/2018 that revealed abnormal myocardial perfusion study, partially reversible anterolateral inferior defect suspicious for ischemia. Ejection fraction 59%. Normal gated wall motion. When comparisons were made from 05/26/2016, these changes appears new. The patient had echocardiography also 10/12/2018 that revealed normal LV function, ejection fraction 50% to 55% low normal, trace aortic regurgitation, mild mitral regurgitation, [id number] tricuspid regurgitation, and RV systolic pressure 25. REVIEW OF SYSTEMS: As per HPI. PHYSICAL EXAMINATION: VITAL SIGNS: Height of the patient 5 feet 4 inches, weight of the patient 165 pounds, and body mass index 28.3 kg/m2. Temperature afebrile, heart rate 80, and blood pressure 150/83. HEENT: PERRLA. Extraocular muscles are intact. NECK: Supple. No carotid bruits or thyromegaly. CHEST: Clear to auscultation. HEART: S1 and S2 regular. ABDOMEN: Soft. EXTREMITIES: Clubbing and cyanosis negative. LABORATORY DATA: Blood workup as of 10/18/2018; WBC 6.9, hemoglobin 13, hematocrit 39.8, and platelet count 250. Chemistry shows sodium on 10/18/2018 of 135, potassium 3.7, chloride 99, carbon dioxide 30, anion gap of 10, BUN 17, and creatinine 0.8. Troponin is 0.01. Total bili 7.2, albumin is 4.2, and albumin-globulin ratio 1.4. IMPRESSION AND PLAN: A 58-year-old female with past medical history of diabetes, hypertension, hyperlipidemia, multiple admission with chest pain, recent admission with chest pain, ruled out for myocardial infarction, but the patient has abnormal stress test, so the patient is scheduled for elective cardiac catheterization, possible angioplasty. We will load with aspirin and Plavix. Further recommendation after the cardiac catheterization. Risks, benefits, and alternatives were discussed and the patient agreed. We will proceed for cardiac catheterization. The patient will be scheduled tomorrow for cardiac catheterization. Thank you Dr. Guajardo for providing us the opportunity in taking care of the patient, Saida Linares. Nancy Schaffer MD
[~2018-10-21] MED LIST: Bacitracin 500 Units/gm Oint Foilpak UD ONE; Bacitracin 500 Units/gm Oint Foilpak UD TOP ONE; Iodixanol 320 MG/ML 100 ML BOTTLE IV ONE; Iodixanol 320 MG/ML 200 ML BOTTLE IV ONE; Iohexol 350mgl/ml 50 ML ONE; Lidocaine PF 2% (5 ml) Inj (For Cardiac Arrhy) ONE; Midazolam 2 MG/2 ML VIAL ONE; Nitroglycerin 50mg in D5W 50 MG/250 ML BOTTLE IV ONE; Sodium Chloride 0.9% 1,000 ML IV SCH; Verapamil 2 ML ONE
[2018-10-21 09:12] VITALS: RESP 18
[2018-10-21 09:27] LABS: BASO # 0.04 K/mm3 (0.0-2.0); BASO % 0.6 % (0.0-3.0); EOS # 0.3 (0.0-0.7); EOS % 5.2 % (1.5-5.0); HEMOGLOBIN 11.8 g/dL (12.0-16.0); LYMPH # 1.9 (1.2-3.4); LYMPH % 29.9 % (22.0-35.0); MEAN CELL VOLUME 83.1 fl (80.0-105.0); MEAN CORPUSCULAR HEMOGLOBIN 26.5 pg (25.0-35.0); MEAN CORPUSCULAR HGB CONC 31.9 g/dl (31.0-37.0); MEAN PLATELET VOLUME 10.1 fl (7.0-11.0); MONO # 0.5 (0.1-0.6); MONO % 7.8 % (1.0-6.0); RBC 4.45 10^6/uL (3.5-6.1); RED CELL DISTRIBUTION WIDTH 13.1 % (11.5-14.5); WHITE BLOOD COUNT 6.3 10^3/uL (4.5-11.0)
[2018-10-21 09:31] LABS: INR 1.06
[2018-10-21 09:36] LABS: BLOOD UREA NITROGEN 19 mg/dL (7-21); CALCIUM 9.2 mg/dL (8.4-10.5); GFR NON-AFRICAN AMERICAN > 60; HDL CHOLESTEROL 34 mg/dL (29-60)
[2018-10-21 09:46] LABS: LDL CHOLESTEROL 109 mg/dL (0-129)
[2018-10-21 14:59] VITALS: TEMP 98.2
--- NOTE | 2018-10-21 15:18 | CPOSTOP ---
DATE: 10/21/2018 PHYSICIAN: Nancy Schaffer MD [employer]ARD MILL SUPERVISOR: Carline door technician. TYPE OF ANESTHESIA: Moderate conscious sedation, total 2 mg of Versed and 100 of fentanyl given periodically. Started 1 mg of Versed and 50 of fentanyl. PRE-PROCEDURE DIAGNOSES: Unstable angina, multiple admission with chest pain, abnormal stress test. PROCEDURE PERFORMED: Left heart catheterization. FINDINGS: Nonobstructive coronary artery disease, limited to only distal circumflex, 55% stenosis. FINAL DIAGNOSIS: Nonobstructive coronary artery disease. POST PROCEDURE: The patient's condition is stable. VASCULAR ACCESS SITE: Left radial. CLOSURE DEVICE: TR Band. TOTAL RADIATION DOSE: 1480.1 milligray unit. TOTAL FLUORO TIME: 2.6 minutes. Nancy Schaffer MD
[2018-10-21 16:21] VITALS: O2SAT 97
--- NOTE | 2018-10-21 17:22 | CARD ---
APPROVED REPORT Date of service: 10/21/2018 EKG Measurement Heart [id number] <Conclusion> Normal sinus rhythm Voltage criteria for left ventricular hypertrophy Nonspecific T wave abnormality Abnormal ECG
[2018-10-21 17:53] VITALS: PULSE 70
--- NOTE | 2018-10-21 17:59 | CARD ---
APPROVED REPORT Date of service: 10/21/2018 Procedure(s) performed: Left Heart Catheterization HISTORY The patient is a 58 year-old female with a history of : most recent EF: 59%. (EF Method: RADIONUCLIDE), previous CHF, previous CVA , diabetes mellitus with insulin treatment , chronic lung disease, previous diagnostic cath, tobacco history() : The patient is a former smoker , hypertension , dyslipidemia , Employee of [employer] (formerly [employer]3], Multiple ER Visits for chest pain, recemtly admitted at [facility] with Chest pain and abnormal stress test.. INDICATION The indication(s) include : positive stress test, unstable angina . CASE TECHNIQUE The patient was brought electively to the Cardiac Catheterization Laboratory in a fasting state and was prepped and draped in a sterile manner. The left wrist was infiltrated with 2% Lidocaine subcutaneous anesthesia. A 6FR GLIDESHEATH ACCESS KIT sheath was inserted into the left brachial artery without difficulty. Coronary angiography was performed using coronary diagnostic catheters. The left coronary system was accessed and visualized with a Diagnostic,5F JL 4 CATH DXT 100 CM catheter. The right coronary system was accessed and visualized with a 5F JR 4 CATH DXT 100 CM catheter. The left ventricle was accessed and visualized with a 5F PIGTAIL 145 CATH DXT 110 CM catheter. Left ventricular/Aortic Valve gradient assessed on pullback. Left ventriculogram was performed in GASCA projection. Closure device was deployed with a Fr TR Band (Regular) without any complications. The patient tolerated the procedure well and there were no complications associated with the procedure. Vessel Analysis The patient's coronary anatomy is right dominant. The left main coronary artery is a medium size vessel without significant stenosis. The left main bifurcates to the left anterior descending and circumflex. The left anterior descending artery is a medium size vessel with intimal irregularities and without significant stenosis. tortous Vessel The first diagonal branch is a small size vessel with diffuse calcification noted throughout this vessel and without significant stenosis. The second diagonal branch is a small size vessel with diffuse calcification noted throughout this vessel and without significant stenosis. The circumflex artery is a medium size vessel with diffuse calcification noted throughout this vessel and without significant stenosis. There is a 55% stenosis in the very distal segment. and very tortous with multiple hair pin turns. The first obtuse marginal branch is a small size vessel with diffuse calcification noted throughout this vessel and without significant stenosis. The second obtuse marginal branch is a medium size vessel with diffuse calcification noted throughout this vessel and without significant stenosis. The right coronary artery is a large size vessel with intimal irregularities and without significant stenosis. The right posterior descending artery is a medium size vessel with intimal irregularities and without significant stenosis. The right posterolateral branch is a small size vessel with diffuse calcification noted throughout this vessel and without significant stenosis. Left Ventricle The left ventricle is normal in size with normal contractility. There was no cardiomyopathy. The left ventricular ejection fraction is estimated to be 60-65%. The left ventricular end diastolic pressure is 12-14 mmHg. There was no gradient across the aortic valve upon pullback. Conclusion Mild Non obstructive CAD, limited to Very Distal Cx-55%, non obstructive, non flow limiting. Preserved Lv Fx. EF-60-65%, EDP-12-14 mmof Hg. Recommendations Aggressive Medical Therapy W/u for non Cardiac chest pain. Cc; Casandra Mccoy / Maite.
[2018-10-21 18:05] VITALS: BP 134/87
== END | disposition home or self-care (01) ==
LOC: CATH 08:17
PROVIDERS: ATTEND Internal Medicine Cardiovascular Disease
DX: I25.110 Atherosclerotic heart disease of native coronary artery with unstable angina pectoris (principal); I11.0 Hypertensive heart disease with heart failure; I50.9 Heart failure, unspecified; I08.3 Combined rheumatic disorders of mitral, aortic and tricuspid valves; E11.9 Type 2 diabetes mellitus without complications; E78.5 Hyperlipidemia, unspecified; Z79.4 Long term (current) use of insulin; Z87.891 Personal history of nicotine dependence; Z86.73 Personal history of transient ischemic attack (TIA), and cerebral infarction without residual deficits
CPT/HCPCS: 36415; 80048; 80061; 85025; 85610; 85730; 86850; 86900; 93005; 93458; 99152; C1769; J1644 ×2; J2250; J2405; J3010; J7030; Q9966

== ENCOUNTER 2018-11-19 17:00 | Inpatient (IN) | payer OTHER, BC ==
[2018-11-19 17:02] VITALS: BMI 28.3
--- NOTE | 2018-11-19 18:01 | ED PDOC ---
Arrival/HPI - General Chief Complaint: Abdominal Pain Time Seen by Provider: 11/19/18 17:12 Historian: Patient - History of Present Illness Narrative History of Present Illness (Text): 11/19/18 17:15 58 year old female, whose past medical history includes hypertension, diabetes, and CHF, who presents to the emergency department complaining of sudden onset of right groin pain that began this morning. Patient reports intermittent in nature, but non-radiating. She also reports intermittent diarrhea. When he went to work, the pain began to worsen. She denies taking any medications for her symptoms and noted her blood pressure was high. She denies any syncopal episodes, jaw pain, fever, chills, chest pain, shortness of breath, nausea, vomiting, urinary symptoms, back pain, neck pain, headache, dizziness, paraesthesia, or any other complaints. PMD: Dr. Guajardo Machine Clipper: Dr. Arora Time/Duration: Other (this morning) Symptom Course: Intermittent Activities at Onset: Rest Context: Home Past Medical History - Provider Review Nursing Documentation Reviewed: Yes - Travel History Have you recently traveled outside [place] w/in the past 3 mons?: No - Infectious Disease Hx of Infectious Diseases: None - Tetanus Immunization Tetanus Immunization: Unknown - Cardiac Hx Pacemaker: No - Pulmonary Hx Asthma: Yes - Neurological Hx Paralysis: No - HEENT Hx HEENT Disorder: No - Renal Hx Renal Disorder: No - Endocrine/Metabolic Hx Endocrine Disorders: Yes Hx Diabetes Mellitus Type 2: Yes - Hematological/Oncological Hx Blood Transfusions: Yes - Integumentary Hx Dermatological Disorder: No - Musculoskeletal/Rheumatological Hx Musculoskeletal Disorders: Yes - Gastrointestinal Hx Gastritis: Yes - Psychiatric Hx Emotional Abuse: No Hx Physical Abuse: No Hx Substance Use: No - Anesthesia Hx Anesthesia Reactions: Yes (difficulty awakening,combative) Hx Malignant Hyperthermia: No - Suicidal Assessment Feels Threatened In Home Enviroment: No Family/Social History - Physician Review Nursing Documentation Reviewed: Yes Family/Social History: No Known Family HX Smoking Status: Former Smoker Hx Alcohol Use: No Hx Substance Use: No Allergies/Home Meds Allergies/Adverse Reactions: Allergies oxycodone HCl [From Percocet] Adverse Reaction (Intermediate, Verified 10/18/18 11:23) VOMITING Home Medications: Home Meds Medication Instructions Recorded Confirmed Lorazepam [Ativan] 0.5 mg PO AMHS PRN 04/09/17 10/21/18 Zolpidem Tartrate [Ambien] 10 mg PO HS PRN 04/09/17 10/21/18 Telmisartan/Amlodipine [Twynsta 1 tab PO ONCE 06/26/18 10/21/18 80-10 mg Tablet] cloNIDine 0.2 mg/24 hr 0.2 mg TD Thu10/15/18 10/21/18 [catapres-TTS2 0.2 mg/24 hr] Review of Systems - Physician Review All systems were reviewed & negative as marked: Yes - Review of Systems Constitutional: absent: Fevers, Other (chills) ENT: absent: Other (jaw pain) Respiratory: absent: SOB Cardiovascular: absent: Chest Pain Gastrointestinal: Diarrhea, Other (right groin pain). absent: Nausea, Vomiting Genitourinary Female: absent: Dysuria, Frequency, Hematuria Musculoskeletal: absent: Back Pain, Neck Pain Skin: absent: Other Neurological: absent: Headache, Dizziness, Other (paraesthesia) Physical Exam Vital Signs Reviewed: Yes Vital Signs Temp Pulse Resp BP Pulse Ox 11/19/18 17:17 98.2 F 92 H 18 200/114 H 97 Temperature: Afebrile Blood Pressure: Hypertensive Pulse: Regular Respiratory Rate: Normal Appearance: Positive for: Well-Appearing, Non-Toxic, Comfortable Pain Distress: None Mental Status: Positive for: Alert and Oriented X 3 - Systems Exam Head: Present: Atraumatic, Normocephalic Extroacular Muscles: Present: EOMI Conjunctiva: Present: Normal Mouth: Present: Moist Mucous Membranes Respiratory/Chest: Present: Clear to Auscultation, Good Air Exchange. No: Respiratory Distress, Accessory Muscle Use Cardiovascular: Present: Regular Rate and Rhythm, Normal S1, S2. No: Murmurs Abdomen: Present: Tenderness (RLQ tenderness). No: Distention, Peritoneal Signs Lower Extremity: Present: Normal Inspection. No: Edema Neurological: Present: GCS=15, Speech Normal Skin: Present: Warm, Dry, Normal Color. No: Rashes Psychiatric: Present: Alert, Oriented x 3, Normal Insight, Normal Concentration Medical Decision Making ED Course and Treatment: 11/19/18 17:20 Impression: 58 year old female presents complaining of sudden onset of right groin pain that began this morning associated with intermittent diarrhea. Differential Diagnosis included but are not limited to: -- Hypertensive urgency -- Colitis -- Small Bowel Obstruction Plan: -- VBG -- CT Abd and Pelvis IV Contrast -- Labs -- Apresoline --Catapres --IV Fluids --Cardene IV Premix -- Urine Culture -- Reassess and disposition Prior Visits: Notes and results from previous visits were reviewed. Progress Notes: 11/19/18 18:32 Patient's pressure noted to be 224/122 despite medications. Clonidine ordered. 11/19/18 19:[address] Guajardo(PCP) who accepts patient onto her service. Pending CT a/p. - Lab Interpretations I have reviewed the lab results: Yes - RAD Interpretation Radiology Orders: 11/19/18 17:47 ABD & PELVIS IV CONTRAST ONLY [CT] Stat Transportation Planner: Radiologist - EKG Interpretation Interpreted by ED Physician: Yes Type: 12 lead EKG - Medication Orders Current Medication Orders: Discontinued Medications Hydralazine HCl (Apresoline) 10 mg IVP ONCE ONE Stop: 11/19/18 17:23 - Scribe Statement The provider has reviewed the documentation as recorded by the Shiva Riggins Provider Scribe Attestation: All medical record entries made by the Stefaniibdeepak were at my direction and personally dictated by me. I have reviewed the chart and agree that the record accurately reflects my personal performance of the history, physical exam, medical decision making, and the department course for this patient. I have also personally directed, reviewed, and agree with the discharge instructions and disposition. Disposition/Present on Arrival - Present on Arrival Any Indicators Present on Arrival: Yes History of DVT/PE: No History of Uncontrolled Diabetes: Yes Urinary Catheter: No History of Decub. Ulcer: No History Surgical Site Infection Following: None - Disposition Have Diagnosis and Disposition been Completed?: Yes Diagnosis: Hypertensive urgency Disposition: HOSPITALIZED Disposition Time: 19:00 Patient Plan: Admission, Telemetry Condition: GUARDED
[2018-11-19] MEDS ORDERED: Sodium Chloride 0.9% 1,000 ML IV STA (18:15)
[2018-11-19 18:18] LABS: BASO # 0.02 K/mm3 (0.0-2.0); BASO % 0.2 % (0.0-3.0); EOS # 0.4 (0.0-0.7); EOS % 4.3 % (1.5-5.0); HEMOGLOBIN 12.7 g/dL (12.0-16.0); LYMPH # 2.2 (1.2-3.4); LYMPH % 27.2 % (22.0-35.0); MEAN CELL VOLUME 83.9 fl (80.0-105.0); MEAN CORPUSCULAR HEMOGLOBIN 26.5 pg (25.0-35.0); MEAN CORPUSCULAR HGB CONC 31.6 g/dl (31.0-37.0); MEAN PLATELET VOLUME 10.3 fl (7.0-11.0); MONO # 0.4 (0.1-0.6); MONO % 4.7 % (1.0-6.0); RBC 4.79 10^6/uL (3.5-6.1); RED CELL DISTRIBUTION WIDTH 13.5 % (11.5-14.5); WHITE BLOOD COUNT 8.1 10^3/uL (4.5-11.0)
[2018-11-19 18:30] LABS: ALB/GLOB RATIO 1.1 (1.1-1.8); ALBUMIN 4.3 g/dL (3.0-4.8); ALT/SGPT < 6 U/L (7-56); AST/SGOT 22 U/L (14-36); BLOOD UREA NITROGEN 15 mg/dL (7-21); CALCIUM 9.5 mg/dL (8.4-10.5); GFR NON-AFRICAN AMERICAN > 60; INR 1.02; LIPASE 79 U/L (23-300); PARTIAL THROMBOPLASTIN TIME 41.2 Seconds (26.9-38.3); PROTHROMBIN TIME 11.3 SECONDS (9.4-12.5)
[2018-11-19] MEDS ORDERED: Nicardipine 20 MG/200 ML 20 MG/200 ML BAG IV SCH ×2 (18:30→23:26)
[2018-11-19 18:34] LABS: B-TYPE NATRIURETIC PEPTIDE 247 pg/mL (0-450); TROPONIN I < 0.01 ng/mL
[2018-11-19] MEDS ORDERED: Iohexol 350 MG/100 ML VIAL ONE (18:36)
[2018-11-19] MEDS ORDERED: Insulin Detemir 100 units/ml Vial (Levemir) SC ONE (19:00)
[2018-11-19 19:52] LABS: VENOUS BLOOD GAS BASE EXCESS 7.4 mmol/L (0.0-2.0); VENOUS BLOOD GAS PO2 28 mm/Hg (30-55); VENOUS BLOOD PH 7.33 (7.32-7.43)
--- NOTE | 2018-11-19 23:32 | CP.PCM.CON ---
History of Present Illness - History of Present Illness History of Present Illness: PGY-1 ICU Consult Note for Dr. Lawson Patient is a 58 year old female with PMHx HTN, DMII, CAD who presents with chief complaint of R groin/R lower abdominal pain. Patient states having R groin pain that she has been having over the past few weeks. Patient states pain was worse today and developed nausea and vomiting, and felt she should have it evaluated. Patient had total hysterectomy with BSO in 2012. Patient no longer has her menstrual cycle. Patient denies any vaginal bleeding or discharge. Patient has had nausea with non-bloody non-bilious vomiting, though not currently c/o any nausea. Patient states she takes BP meds daily, though admits to not being compliant with DM meds. Patient's BP was found to be elevated in ED and patient states she was surprised due to be compliant with meds, though admits she has not been checking her BP at home because her home machine is broken. Patient denies any headache, blurry vision, dizziness, lightheadedness, focal weakness, blurry vision, double vision, or any vision changes. All: oxycodone PMhx: HTN, DMII, and anxiety, CAD Psurg: cardiac cath (2013), R rotator cuff (2015), gastric band (2007), gastric band replacement (2009), gastric band removal 2015, partial hysterectomy, 2006, total hysterectomy and BSO Famhx: Mom: HTN, stroke at 70, Dad: open heart surgery at 77 Social: stopped smoking in 1997 (1 pack per week for 20 years), denies alcohol or drugs Home meds: Meds reviewed as per OCT Cardio: Dr. Schaffer - last stress and echo in 2016 PMD: Adriano Berry Review of Systems - Constitutional Constitutional: absent: Chills, Fever, Weight Loss - EENT Eyes: absent: Blurred Vision, Change in Vision, Diplopia, Pain, Loss of Vision Nose/Mouth/Throat: absent: Nasal Congestion, Nasal Discharge - Cardiovascular Cardiovascular: absent: Chest Pain, Dyspnea, Lightheadedness, Palpitations, Syncope - Respiratory Respiratory: absent: Cough, Wheezing - Gastrointestinal Gastrointestinal: absent: Abdominal Pain, Nausea, Vomiting - Genitourinary Genitourinary: absent: Dysuria, Flank Pain - Reproductive: Female Reproductive:Female: S/P Hysterectomy (total hyster with BSO 2012. Post- menopausal.), Pelvic Pain. absent: Abnormal Vaginal Bleeding - Musculoskeletal Musculoskeletal: absent: Back Pain, Neck Pain - Neurological Neurological: absent: Confusion, Dizziness, Numbness, Focal Weakness, Headaches, Paresthesias, Sensory Deficit - Psychiatric Psychiatric: Anxiety, Depression (grieving recent loss of father) - Hematologic/Lymphatic Hematologic: absent: Easy Bleeding, Easy Bruising Past Patient History - Infectious Disease Hx of Infectious Diseases: None - Tetanus Immunizations Tetanus Immunization: Unknown - Past Medical History & Family History Past Medical History?: Yes - Past Social History Smoking Status: Former Smoker - CARDIAC Hx Pacemaker: No - PULMONARY Hx Asthma: Yes - NEUROLOGICAL Hx Paralysis: No - HEENT Hx HEENT Problems: No - RENAL Hx Chronic Kidney Disease: No - ENDOCRINE/METABOLIC Hx Endocrine Disorders: Yes Hx Diabetes Mellitus Type 2: Yes - HEMATOLOGICAL/ONCOLOGICAL Hx Blood Transfusions: Yes - INTEGUMENTARY Hx Dermatological Problems: No - MUSCULOSKELETAL/RHEUMATOLOGICAL Hx Musculoskeletal Disorders: Yes - GASTROINTESTINAL Hx Gastritis: Yes - PSYCHIATRIC Hx Emotional Abuse: No Hx Physical Abuse: No Hx Substance Use: No - ANESTHESIA Hx Anesthesia Reactions: Yes (difficulty awakening,combative) Hx Malignant Hyperthermia: No Meds Allergies/Adverse Reactions: Allergies Allergy/AdvReac Type Severity Reaction Status Date / Time oxycodone HCl [From Percocet] AdvReac Intermediate VOMITING Verified 10/18/18 11:23 - Medications Medications: Current Medications Nicardipine HCl (Cardene Iv Premix) 20 mg in 200 mls @ 25 mls/hr IV .Q8H MARTA Physical Exam - Constitutional Appears: Non-toxic, No Acute Distress - Head Exam Head Exam: ATRAUMATIC, NORMOCEPHALIC - Eye Exam Eye Exam: EOMI, Normal appearance - ENT Exam ENT Exam: Mucous Membranes Moist - Respiratory Exam Respiratory Exam: Clear to Auscultation Bilateral, NORMAL BREATHING PATTERN. absent: Rhonchi, Wheezes - Cardiovascular Exam Cardiovascular Exam: REGULAR RHYTHM, +S1, +S2 - GI/Abdominal Exam GI & Abdominal Exam: Normal Bowel Sounds, Soft. absent: Tenderness - Extremities Exam Extremities exam: Positive for: normal inspection. Negative for: pedal edema, tenderness - Neurological Exam Neurological exam: Alert, CN II-XII Intact, Oriented x3 - Psychiatric Exam Psychiatric exam: Normal Affect, Normal Mood - Skin Skin Exam: Dry, Intact Results - Vital Signs Recent Vital Signs: Last Vital Signs Temp 98.2 F 11/19/18 17:17 Pulse 111 H 11/19/18 22:55 Resp 18 11/19/18 22:55 BP 166/96 H 11/19/18 22:55 Pulse Ox 97 11/19/18 22:55 - Labs Result Diagrams: 11/19/18 17:56 11/19/18 17:56 Labs: Laboratory Results - last 24 hr 11/19/18 11/19/18 11/19/18 17:56 17:56 17:56 WBC 8.1 D RBC 4.79 Hgb 12.7 Hct 40.2 MCV 83.9 MCH 26.5 MCHC 31.6 RDW 13.5 Plt Count 249 MPV 10.3 Neut % (Auto) 63.6 Lymph % (Auto) 27.2 Wells % (Auto) 4.7 Eos % (Auto) 4.3 Baso % (Auto) 0.2 Lymph # (Auto) 2.2 Wells # (Auto) 0.4 Eos # (Auto) 0.4 Baso # (Auto) 0.02 Absolute Neuts (auto) 5.17 PT 11.3 INR 1.02 APTT 41.2 H pO2 VBG pH VBG pCO2 VBG HCO3 VBG Total CO2 VBG O2 Sat (Calc) VBG Base Excess VBG Potassium Glucose Lactate FiO2 Crit Value Called To Crit Value Called By Blood Gas Notified Time Sodium 138 Potassium 4.1 Chloride 97 L Carbon Dioxide 33 Anion Gap 12 BUN 15 Creatinine 0.6 L Est GFR ( Amer) > 60 Est GFR (Non-Af Amer) > 60 POC Glucose (mg/dL) Random Glucose 307 H* D Calcium 9.5 Magnesium 1.8 Total Bilirubin 0.4 AST 22 ALT < 6 L Alkaline Phosphatase 141 H D Troponin I < 0.01 NT-Pro-B Natriuret Pep 247 Total Protein 8.1 Albumin 4.3 Globulin 3.8 Albumin/Globulin Ratio 1.1 Lipase 79 Venous Blood Potassium 11/19/18 11/19/18 19:29 22:00 WBC RBC Hgb Hct MCV MCH MCHC RDW Plt Count MPV Neut % (Auto) Lymph % (Auto) Wells % (Auto) Eos % (Auto) Baso % (Auto) Lymph # (Auto) Wells # (Auto) Eos # (Auto) Baso # (Auto) Absolute Neuts (auto) PT INR APTT pO2 28 L VBG pH 7.33 VBG pCO2 68.0 H* VBG HCO3 35.9 H VBG Total CO2 38.0 H VBG O2 Sat (Calc) 65.7 H VBG Base Excess 7.4 H VBG Potassium 4.7 Glucose 335 H Lactate 1.6 FiO2 21.0 Crit Value Called To Hallie carrasco Crit Value Called By Atc Blood Gas Notified Time 1951 Sodium 139.0 Potassium Chloride 99.0 Carbon Dioxide Anion Gap BUN Creatinine Est GFR ( Amer) Est GFR (Non-Af Amer) POC Glucose (mg/dL) 273 H Random Glucose Calcium Magnesium Total Bilirubin AST ALT Alkaline Phosphatase Troponin I NT-Pro-B Natriuret Pep Total Protein Albumin Globulin Albumin/Globulin Ratio Lipase Venous Blood Potassium 4.7 Assessment & Plan - Assessment and Plan (Free Text) Assessment: 58 year old female with PMHx HTN, DM, CAD, anxiety presents with pelvic pain, found to have SBP >200 in hypertensive urgency. Neuro -Asymptomatic hypertensive urgency -A and O x3, no focal deficits CV Hypertensive Urgency -SBP >200 on admission -No focal deficits -Home BP meds held, on Cardene drip -ICU monitoring on drip @ 2.5 mc/hr -SBP goal 175-185 Resp -Saturating high 90s on room air -Airway patent GI/ Pelvic Pain -s/p total hystero SBO 2012 -CT abd/pelvis shows no acute disease process prelim read - f/u official read Nephro -Monitor Is and Ox -Replete electrolytes as needed -Maintain adequate hydration -SBP goal 175-185 Heme -Monitor H and H ID -F/u urine cultures, blood cultures -F/u UA Endo DM, uncontrolled -ISS low dose -Accuchecks ACHS Assessment and plan d/w Dr. Renny Alvarez, PGY-1
[2018-11-19] MEDS ORDERED: TELMISARTAN PO SCH (23:45)
[2018-11-19] MEDS ORDERED: AMLODIPINE PO SCH (23:45)
[2018-11-20 05:51] LABS: HEMOGLOBIN 11.8 g/dL (12.0-16.0); MEAN CELL VOLUME 83.1 fl (80.0-105.0); MEAN CORPUSCULAR HEMOGLOBIN 26.2 pg (25.0-35.0); MEAN CORPUSCULAR HGB CONC 31.5 g/dl (31.0-37.0); MEAN PLATELET VOLUME 10.1 fl (7.0-11.0); RBC 4.51 10^6/uL (3.5-6.1); RED CELL DISTRIBUTION WIDTH 13.4 % (11.5-14.5)
[2018-11-20 06:02] LABS: IRON 50 ug/dL (45-180)
[2018-11-20 06:07] LABS: BLOOD UREA NITROGEN 15 mg/dL (7-21); CALCIUM 9.2 mg/dL (8.4-10.5); GFR NON-AFRICAN AMERICAN > 60
[2018-11-20 06:11] LABS: % IRON SATURATION 16 % (20-55); TOTAL IRON BINDING CAPACITY 314 ug/dL (265-497)
[2018-11-20] MEDS: Insulin Regular 1 UNITS/0.01 ML ML SC SCH ×4 (08:39→22:35)
[2018-11-20] MEDS: Insulin Lispro (humaLOG) MIX 75/25(10 ml) SC SCH ×2 (08:47→17:08)
--- NOTE | 2018-11-20 09:56 | RAD ---
HISTORY: rule out infiltrate COMPARISON: Chest x-ray performed 10/11/18 TECHNIQUE: Chest, one view. FINDINGS: Examination limited by habitus. LUNGS: Hypoinflation. No focal consolidation. Please note that chest x-ray has limited sensitivity for the detection of pulmonary masses. PLEURA: No significant pleural effusion identified. No definite pneumothorax . CARDIOVASCULAR: Cardiomegaly. Ectatic aorta. OSSEOUS STRUCTURES: Degenerative changes. VISUALIZED UPPER ABDOMEN: Unremarkable. OTHER FINDINGS: None. IMPRESSION: Hypoinflation. No focal consolidation. Cardiomegaly.
--- NOTE | 2018-11-20 10:31 | CON ---
DATE: 11/20/2018 PULMONARY CONSULT NOTE REFERRING PHYSICIAN: Glo Guajardo MD REASON FOR CONSULT: Abnormal ABG, hypertension and suspected sleep apnea. HISTORY OF PRESENT ILLNESS: This is a 58-year-old female with past medical history significant for non-obstructive coronary artery disease, hypertension, diabetes, CHF who presented to the emergency room complaining of right groin, right lower abdominal pain. Reports that she has been having that pain for the past few weeks. The patient developed nausea and vomiting and intermittent diarrhea. As pain progressed over the day, the patient came to emergency room, she also noted to have blood pressure was high. Reports taking blood pressure medication today. In the emergency department the patient's blood pressure was found to be elevated. Today the patient seen lying in bed asleep on monitor, noticed the patient was having apnea, episodes while asleep. The patient awakened by this practitioner reports feeling better this morning, no longer in pain. No headache, rhinitis, cough, shortness of breath, chest pain, abdominal pain, nausea, vomiting, diarrhea, leg pain or leg swelling reported. PAST MEDICAL HISTORY: Hypertension, diabetes mellitus type II, coronary artery disease, anxiety, cardiac catheterization in the past and hyperlipidemia. Rotator cuff surgery 2015; gastric band 2018; gastric band replacement 2009; gastric band removal 2016; partial hysterectomy 2006; total hysterectomy and BSO. Asthma. SOCIAL HISTORY: Former smoker quit in 1997. No ETOH abuse. No illicit drug use. ALLERGIES: OXYCODONE HYDROCHLORIDE. FAMILY HISTORY: Mother had hypertension and stroke. Father, open heart surgery. MEDICATIONS: Reviewed. Norvasc 10 mg daily, aspirin 81 mg daily, Lipitor 10 mg at dinner, clonidine 1 patch weekly, Humulin R sliding scale a.c. and at bedtime, Humalog mix 75/25 at 15 units subcutaneous a.c., Cozaar 100 mg daily, nicardipine 20 mg in 200 mL at 25 mL/hour every 8 hours and Lyrica 100 mg at bedtime. REVIEW OF SYSTEMS: No headache, rhinitis, cough, shortness of breath, chest pain, abdominal pain, nausea, vomiting, diarrhea, leg pain or leg swelling. Reports groin pain is better this morning. No longer having diarrhea. PHYSICAL EXAMINATION: VITAL SIGNS: Blood pressure 127/76, heart rate 80, oxygen saturation 95% on room air and temperature 98.4. GENERAL: No acute distress. HEENT: Moist mucous membranes. Crowded airway. Mallampati score 4. NECK: Supple. No JVD. RESPIRATORY: Fair airflow bilaterally. CARDIOVASCULAR: S1 and S2. ABDOMEN: Soft and nontender. No distention. No organomegaly. Positive bowel sounds. EXTREMITIES: No bilateral lower extremity edema. NEUROLOGIC: Awake, alert and verbal. Following commands. LABORATORY DATA: Reviewed. WBC 8.0, RBC 4.51, hemoglobin 11.8, hematocrit 37.5 and platelets 249. PT 11.3, INR 1.02 and APTT 41.2. PO2 of 28, venous blood gas PH 7.33, venous blood gas PCO2 of 68 and venous blood gas HCO3 of 35.9 on FiO2 21. Sodium 136, potassium 3.7, chloride 97, carbon dioxide 33, anion gap 11, BUN 15, creatinine 0.8, GFR is greater than 60, POC glucose 205, random glucose 298 and calcium 9.2. Iron 50, TIBC 314 and percent saturation 16. Triglycerides 213, cholesterol 211, LDL cholesterol 124 and HDL cholesterol 36. TSH 1.34. Abdomen and pelvic CT report pending. EKG report pending. IMPRESSION AND PLAN: Hypertensive urgency, history of hypertension, diabetes mellitus, coronary artery disease, anxiety, asthma history and apnea noted on monitors, so we do suspect sleep apnea in this patient, possible hypoventilation syndrome. We will place the patient on Xopenex and Atrovent nebulizer treatment every 6 hours. We will also place the patient on Pulmicort nebulizer every 12 hours. Discussed with the patient in depth sleep apnea and the risk associated with sleep apnea. The patient reports she is willing to try continuous positive airway pressure machine while hospitalized. We will place the patient on continuous positive airway pressure 7 cm H2O to be used at bedtime. We recommend the patient have full pulmonary function test and sleep study as outpatient. We will order chest x-ray to be done today to rule out any infiltrate. We will place the patient on gastric prophylaxis, Protonix and will place the patient on deep venous thrombosis prophylaxis, Lovenox. Sleep apnea precautions and head of bed elevated at 45 degrees. Critical care time spent more than 35 minutes. This patient was seen and examined with Dr. Syed. Discussed assessment and plan as described above. This patient was seen and examined with Jacobo Howard, nurse practitioner. Discussed assessment and plan as described above. Thank you for this consult and we will follow with you. Jacobo Howard APN Nancy Syed MD
[2018-11-20] MEDS: Enoxaparin 40 mg Syringe SC SCH (11:30)
--- NOTE | 2018-11-20 12:56 | CT ---
Date of service: 11/19/2018 PROCEDURE: CT Abdomen and Pelvis with contrast HISTORY: abdominal pain COMPARISON: None available. TECHNIQUE: Contrast dose: 100 mL Omnipaque 350 IV Radiation dose: Total exam DLP = 687.95 mGy-cm. This CT exam was performed using one or more of the following dose reduction techniques: Automated exposure control, adjustment of the mA and/or kV according to patient size, and/or use of iterative reconstruction technique. FINDINGS: LOWER THORAX: Minimal basilar atelectasis. No visible pleural effusion or pneumothorax. LIVER: Hepatomegaly. GALLBLADDER AND BILE DUCTS: Distended gallbladder. No calcified gallstones identified. PANCREAS: Unremarkable. SPLEEN: Unremarkable. ADRENALS: Unremarkable. KIDNEYS AND URETERS: The kidneys enhance symmetrically. No hydronephrosis or obstructing calculus identified. VASCULATURE: No aortic aneurysm. No atherosclerotic calcification or mural plaque present. BOWEL: Stomach is nondistended. Lack of oral contrast limits evaluation for bowel pathology. Bowel loops appear within normal limits of caliber without evidence of obstruction. Moderate constipation. APPENDIX: The appendix appears within normal limits of caliber. No secondary signs of acute appendicitis. PERITONEUM: No significant free fluid. No definite free air. LYMPH NODES: Sub cm mediastinal and retroperitoneal adenopathy, nonspecific. No bulky adenopathy identified. BLADDER: Unremarkable. REPRODUCTIVE: Unremarkable. BONES: Degenerative changes. OTHER FINDINGS: Postoperative changes, anterior abdomen. IMPRESSION: Hepatomegaly. Distended gallbladder without gallstones. Diverticulosis without CT evidence of acute diverticulitis. Moderate constipation. Sub cm mediastinal and retroperitoneal adenopathy, nonspecific. Preliminary impression was provided by [employer].
--- NOTE | 2018-11-20 13:08 | PN ---
DATE: 11/20/2018 SUBJECTIVE: The patient is awake and alert. No complaints of nausea or vomiting or significant abdominal pain. The patient is eating breakfast and tolerating it well. She is off the Cardene and is getting p.o. medications and the blood pressure is within the good range. PHYSICAL EXAMINATION: GENERAL: Note that her temperature is 9 8.4, pulse is 80, respirations are 20, BP is 127/76. SKIN: Warm and dry. HEENT: Head is atraumatic and normocephalic. Eyes reactive to light. Ear, nose and throat seem to be within normal limits. NECK: Supple. No JVD. No thyroid enlargement. No lymph nodes. HEART: Regular rate and rhythm. Normal S1 and S2. LUNGS: Reveal good breath sounds bilaterally. ABDOMEN: Soft. Nontender. Normal bowel sounds. GENITALIA: Deferred. RECTAL: Deferred. MUSCULOSKELETAL: No joint deformities. EXTREMITIES: Trace lower extremity edema. NEUROLOGIC: She seems to be grossly intact. LABORATORY DATA: White count 8, hemoglobin 11.8, hematocrit 37.5, and platelets 249,000. Sodium 136, potassium 3.7, chloride 97, CO2 of 33 with a BUN of 15, creatinine 0.8 and glucose of 205. IMPRESSION AND PLAN: As far as my impression, this patient continue with hypertensive urgency. At this time, blood pressure is stable on oral medications. She has a history of hypertension, diabetes, coronary artery disease and she also presented with abdominal discomfort as well as right groin pain. Noted the patient does have anxiety as well. As far as our plan, the patient is on clonidine, Cozaar, Ecotrin. She is getting her insulin regimen and is on Lipitor as well as Lyrica, nicardipine and Norvasc. We will continue to treat aggressively along with the other consultants and the primary care doctor. The patient is being considered to be transferred to the floor. Alberto Yin MD
--- NOTE | 2018-11-20 13:30 | CON ---
DATE: 11/20/2018 REFERRING PHYSICIAN: Glo Guajardo MD REASON FOR CONSULTATION: Medical management of hypertension, uncontrolled. CHIEF COMPLAINT AND HISTORY OF PRESENT ILLNESS: This is a 58-year-old female who has come into the hospital with a past medical history of diabetes type 2, hypertension, coronary artery disease, complaining of right inguinal pain as well as right lower abdomen pain. The patient states that the pain has been going on for the past few weeks. She had developed nausea and vomiting yesterday and came in for further evaluation. She states she does have a history of hypertension for many years and has been compliant on her medications. The patient had no chest pain, no shortness of breath, no nausea, no vomiting. She currently has no abdominal pain, no dysuria, no frequency. She denies sleep apnea. She denies taking [id number] NSAIDs. The patient states that she does take her medications daily. She does miss her diabetes medications at times. She had a hysterectomy and so she is postmenopausal. She does not have any other complaints. This morning, she states she was drowsy. REVIEW OF SYSTEMS: All other review of symptoms are within normal limits except as mentioned. The patient was admitted to the ICU because of her blood pressure being significantly elevated, systolic blood pressure was over 200. She was given hydralazine, clonidine and losartan. She was also given a dose of amlodipine. Her blood pressure has improved. She had been placed on a nicardipine drip that has now been taken off. SOCIAL HISTORY: She stopped smoking in 1997. She smoked one pack per day for 20 years. She denies alcohol and drugs. FAMILY HISTORY: Mother had hypertension, had a stroke at 70. Father had coronary artery disease and had CABG at 77. PAST MEDICAL HISTORY 1. Coronary artery disease. 2. Diabetes, type 2. 3. Hypertension. PAST SURGICAL HISTORY: Hysterectomy, gastric banding. MEDICATIONS AT HOME: She is on losartan, clonidine, Ativan, zolpidem, atorvastatin, telmisartan and amlodipine. PHYSICAL EXAMINATION VITAL SIGNS: She has a temperature of 98.2, pulse is 92, respirations 18, blood pressure is 100/114, O2 saturation 97%. Height is 5 feet 4 inches, weight is 165 pounds, BMI is 28.3. GENERAL: The patient is lying in bed, comfortable, and in no acute distress. HEENT: Atraumatic and normocephalic. Anicteric sclerae. Moist mucosa. [place] conjunctivae. No oral lesions. NECK: No JVD, anterior and posterior adenopathy, thyromegaly, or bruits. CARDIOVASCULAR: S1 and S2 regular. No murmurs, rubs or gallops. LUNGS: Clear to auscultation bilaterally. No wheezes, rales, or rhonchi. ABDOMEN: Bowel sounds are positive. Soft, nontender and nondistended. No hepatosplenomegaly. No rebound and no guarding. EXTREMITIES: No cyanosis, clubbing, or edema. NEUROLOGIC: No facial asymmetry. Tongue is midline. No uvula deviation. Power is 5/5 upper extremities and lower extremities. Sensation intact in upper extremities and lower extremities. PSYCHIATRIC: She is awake, alert and oriented x3. No anxiety or depression. She has normal affect. GENITOURINARY: No CVA tenderness. VASCULAR: 2+ pulses in the carotid pulses and pedal pulses. SKIN: No erythema or nodules. SPINE: Shows normal curvature. LABORATORY DATA: White count of 8.1, hemoglobin 12.7, platelet count is 249. INR is 1.02. She has VBG done that shows a lactate of 1.6. Chemistry shows sodium 136, creatinine is 0.8. The patient has iron saturation of 16%, cholesterol is 211, the TSH is 1.3. She had glucose of 307. CT done shows no significant abnormalities. Final report is pending. I did review the CAT scan myself. The stomach is unremarkable. There is significant amount of feces in her colon. There are diverticular changes. ASSESSMENT 1. Hypertensive urgency. 2. Diabetes type 2, uncontrolled. 3. Coronary artery disease. 4. Dyslipidemia. PLAN: The patient is currently admitted to the hospital. She had elevated blood pressure. Her blood pressure is currently controlled. She was given multiple blood pressure medications to control her blood pressure. She is currently off the nicardipine drip. I will restart her blood pressure medications. She is on clonidine patch, this will be continued. I will put her on amlodipine, increase her losartan, continue her clonidine. She has essential hypertension, creatinine is normal. The patient is on Lipitor for dyslipidemia. She is on low sodium heart-healthy diet. Currently, she is asymptomatic and off her drip. She remains in the ICU. She is on insulin for her diabetes and diabetic control. She needs to have good blood pressure control in order to prevent complications including [place], stroke and kidney disease. We will continue to follow. Thank you for allowing me to participate in the care of your patient. Konstantin Farah MD
[2018-11-20 13:33] LABS: FOLATE 9.3 ng/mL
[2018-11-20] MEDS: Ipratropium 0.02% Inhal Soln (0.5 mg/2.5 ml) UD IH SCH ×2 (13:45→19:42)
--- NOTE | 2018-11-20 15:20 | CARD ---
APPROVED REPORT Date of service: 11/19/2018 EKG Measurement Heart [id number] <Conclusion> Normal sinus rhythm Voltage criteria for left ventricular hypertrophy Prolonged QT Abnormal ECG
--- NOTE | 2018-11-20 16:21 | CON ---
DATE: 11/20/2018 LOCATION: The patient is in room 129, CCU bed 5. REASON FOR CONSULTATION: Uncontrolled hypertension. HISTORY OF PRESENT ILLNESS: The patient is a 58-year-old female known case of hypertension, diabetes, hyperlipidemia, nonobstructive coronary artery disease on cardiac catheterization of 10/21/2018 admitted with the history that she suddenly developed right groin pain and she came to the emergency room where her blood pressure was found to be 200/114. She stated that she was taking her medication, but she was in pain at that time. Denied any chest pain, shortness of breath, palpitation . The patient's groin pain is better now. The patient is lying flat in bed without any respiratory distress. PAST MEDICAL HISTORY: Significant for nonobstructive coronary artery disease, on catheterization of 10/21/2018; hypertension; diabetes mellitus and hyperlipidemia. PERSONAL HISTORY: Denies smoking. Denies drinking. Denies any illicit drugs. PREVIOUS CARDIAC WORKUP: The patient had stress test on 10/12/2018, which showed anteroseptal anterolateral ischemia. The patient had an echo on 10/12/2018, which showed normal size LV, [id number] LVH, mild mitral regurgitation, trace aortic regurgitation, trace to mild tricuspid regurgitation, LV ejection fraction 50-55%. The patient had cardiac catheterization on 10/21/2018, which showed nonobstructive coronary artery disease, only distal circumflex had 55% narrowing, ejection fraction of LV was 60%-65%. HOME MEDICATIONS: Clonidine 0.2 mg per 24 hours TTS patch 2, Ambien 10 mg at bedtime, Twynsta 80/10 mg tablet daily, Lyrica 100 mg p.o. at bedtime, losartan 50 mg daily, aspirin 81 mg daily, insulin lispro 75/25 fifteen units subcutaneous , and Levemir 30 units subcutaneous at bedtime, Lipitor 10 mg daily. REVIEW OF SYSTEMS: All the systems reviewed, positive mentioned in history. PHYSICAL EXAMINATION VITAL SIGNS: Blood pressure 127/76, respirations 20, pulse 80. The patient is afebrile. HEENT: Head is normocephalic. Eyes, pupils normal. Conjunctivae normal. Nose and throat normal. NECK: JVP low. Carotids equal. THORAX: AP diameter normal. ABDOMEN: Soft and nontender. No organomegaly. EXTREMITIES: No clubbing. No cyanosis. LABORATORY DATA: WBC 8.0, hemoglobin 11.8, hematocrit 37.5, and platelets 249. Sodium 136, potassium 3.7, BUN 15, creatinine 0.8, CO2 of 5, triglyceride 213, cholesterol 211, TSH 1.34. EKG showed regular sinus rhythm. DIAGNOSES: Uncontrolled hypertension; right groin pain, which has improved now; hypertension; diabetes; nonobstructive coronary artery disease, on cardiac catheterization on 10/21/2018 with left ventricular ejection fraction normal 60-65%. Echo on 10/12/2018 showed mild to moderate left ventricular hypertrophy, ejection fraction 50-55%, mild mitral regurgitation, trace aortic regurgitation, trace to mild tricuspid regurgitation. PLAN: Continue clonidine 0.2 mg per 24-hour patch TTS-2 weekly, losartan 100 mg p.o. daily, aspirin 81 mg daily, insulin as ordered, Lipitor 10 mg daily, Lovenox 40 mg subcutaneous daily and Lyrica 100 mg at bedtime. The patient was put on nicardipine drip 20 mg and 200 mL D5W IV 2.5 mg per hour, amlodipine 10 mg daily, Protonix 40 mg daily, Xopenex therapy. CAT scan of the abdomen and pelvis has been ordered, report is pending. We will continue present therapy and we will monitor and follow with you. Clinically, cardiac state is stable. Blood pressure has come down. We will follow with you. Nancy Meyers MD
[2018-11-20] MEDS: Budesonide 0.5 mg/2 ml Inhal Susp UD IH SCH (19:42)
[2018-11-20] MEDS: Levalbuterol 0.63 MG/3 ML Inhal Soln UD IH PRN (19:43)
[2018-11-20] MEDS: Pantoprazole 40 mg EC Tab PO SCH (22:35)
--- NOTE | 2018-11-20 22:57 | HP ---
DATE OF EXAM: 11/20/2018 The patient was seen and examined at the bedside on 11/20/2018. CHIEF COMPLAINT: Abdominal pain and headache. HISTORY OF PRESENT ILLNESS: Ms. Saida Linares is a 58-year-old female with past medical history of hypertension, diabetes mellitus, congestive heart failure, came to the emergency department complaining of sudden onset of right groin pain and begin this morning and headache, the patient reports intermittent in nature, but nonradiating. The patient also reports intermittent diarrhea. When she went to work, the pain began to worsen. The patient did not take anything for pain. She noted her blood pressure was high and has taken medication for blood pressure. Denies syncopal episode. No jaw pain. No fever. No chills. No hematuria. No hematochezia. No shortness of breath. PAST MEDICAL HISTORY: As above. Asthma, diabetes mellitus type 2, anemia, history of blood transfusions, and gastritis. FAMILY HISTORY: Father and mother, noncontributory. HABITS: No smoking. No drugs. No ethanol. ALLERGIES: THE PATIENT IS ALLERGIC WITH OXYCODONE. HOME MEDICATIONS: Ativan, Ambien, amlodipine, telmisartan, and clonidine. REVIEW OF SYSTEMS: The patient was seen and examined at the bedside, looking comfortable, sleepy, and arousable. Moving all four extremities. Headache is little bit better. No fever. No chills. PHYSICAL EXAMINATION: VITAL SIGNS: Temperature 98.4, pulse 84, blood pressure 135/74, and respiratory rate 18. HEENT: Head; normocephalic and atraumatic. Eyes; PERRLA. Extraocular muscles intact. Conjunctivae clear. Nose patent. Mucous membranes moist. NECK: Supple. No carotid bruit. No JVD or thyromegaly. CHEST: Bilaterally symmetrical. HEART: S1 and S2 positive. LUNGS: Clear to auscultation. ABDOMEN: Soft. Bowel sounds present. No organomegaly. EXTREMITIES: No edema. No cyanosis. NEUROLOGIC: The patient is awake and alert. Moving all four extremities. No focal deficit. LABORATORY DATA: White blood cell is 8, hemoglobin 11.8, hematocrit 37.5, and platelets 249. Sodium 136, potassium 3.7, BUN 15, creatinine 0.8, glucose 377, iron saturation 16, triglycerides 213, cholesterol 211, and B12 is 160. ASSESSMENT AND PLAN: Ms. Saida Linares is a 58-year-old lady with B12 deficiency, hypercholesterolemia, hypertriglyceridemia, iron deficiency, diabetes mellitus, hypochloremia, anemia, came with accelerated hypertension 200/114, 169/97, and 180/107. Plan was to admit to the unit. [employer] consult called. Now, blood pressure is fluctuating. Last blood pressure 156/96, pulse 115, and respiratory rate 18. History of coronary artery disease, seen by Dr. Meyers and Dr. Syed and [employer] Dr. Alberto Yin. The patient had significant nonobstructive coronary artery disease on catheterization of 10/21/2018, diabetes mellitus, and hypercholesterolemia. Has right groin pain, which was improved. Echo was done on 10/12/2018. Continue clonidine TTS patch, losartan, aspirin, insulin ordered, Lipitor, Lovenox, Lyrica, amlodipine, and Protonix. Appreciated Dr. Meyers's notes. Appreciated Dr. Syed's notes also. We will call Psych consult. Also as per the patient, she lost her father and she is depressed. Her hypertensive urgency is getting better. The patient has sleep apnea syndrome, possibly hypoventilation syndrome. Dr. Syed's nurse practitioner put the patient on Pulmicort and Xopenex. will be placed on bilevel positive airway pressure. Gastrointestinal and deep venous thrombosis prophylaxes. Repeat labs. We will follow up. Glo Guajardo MD VERONICA
[2018-11-21] MEDS: Ipratropium 0.02% Inhal Soln (0.5 mg/2.5 ml) UD IH SCH ×4 (01:13→20:19)
[2018-11-21] MEDS: Budesonide 0.5 mg/2 ml Inhal Susp UD IH SCH ×2 (07:15→20:20)
[2018-11-21 07:53] LABS: BASO # 0.02 K/mm3 (0.0-2.0); BASO % 0.3 % (0.0-3.0); EOS # 0.2 (0.0-0.7); EOS % 3.3 % (1.5-5.0); HEMOGLOBIN 12.1 g/dL (12.0-16.0); LYMPH # 2.2 (1.2-3.4); LYMPH % 30.4 % (22.0-35.0); MEAN CELL VOLUME 83.6 fl (80.0-105.0); MEAN CORPUSCULAR HEMOGLOBIN 26.5 pg (25.0-35.0); MEAN CORPUSCULAR HGB CONC 31.8 g/dl (31.0-37.0); MEAN PLATELET VOLUME 10.4 fl (7.0-11.0); MONO # 0.5 (0.1-0.6); MONO % 6.4 % (1.0-6.0); RBC 4.56 10^6/uL (3.5-6.1); RED CELL DISTRIBUTION WIDTH 13.5 % (11.5-14.5); WHITE BLOOD COUNT 7.2 10^3/uL (4.5-11.0)
--- NOTE | 2018-11-21 08:22 | CP.PCM.PN ---
Subjective - Date & Time of Evaluation Date of Evaluation: 11/21/18 Time of Evaluation: 06:40 - Subjective Subjective: Awake, alert, no distress, feels better Reason for consultation and follow up: Cardiac evaluation and follow up of uncontrolled hypertension, history of non obstructive coronary artery disease, hypertension, hyperlipidemia, diabetes Seen and examined by me and Dr. Meyers Objective - Vital Signs/Intake and Output Vital Signs (last 24 hours): Temp Pulse Resp BP Pulse Ox 97.9 F 85 20 141/81 97 11/21/18 06:00 11/21/18 06:00 11/21/18 06:00 11/21/18 06:00 11/21/18 06:00 Intake and Output: 11/21/18 11/21/18 06:59 18:59 Intake Total 540 Balance 540 - Medications Medications: Current Medications Amlodipine Besylate (Norvasc) 10 mg PO DAILY [facility] Last Admin: 11/20/18 08:40 Dose: 10 mg Aspirin (Ecotrin) 81 mg PO DAILY [facility] Last Admin: 11/20/18 08:40 Dose: 81 mg Atorvastatin Calcium (Lipitor) 10 mg PO DIN [facility] Last Admin: 11/20/18 17:07 Dose: 10 mg Budesonide (Pulmicort Respules) 0.5 mg IH [id number] [facility] Last Admin: 11/21/18 07:15 Dose: 0.5 mg Clonidine HCl (Catapres-Tts2 0.2 Mg/24 Hr) 1 patch TD FRI [facility] Cyanocobalamin (Vitamin B12 1000 Mcg/Ml Inj) 1,000 mcg IM DAILY [facility] Enoxaparin Sodium (Lovenox) 40 mg SC DAILY [facility]; Protocol Last Admin: 11/20/18 11:30 Dose: 40 mg Insulin Human Regular (Humulin R) 0 units SC ACHS [facility]; Protocol Last Admin: 11/20/18 22:35 Dose: Not Given Insulin Lispro Protam/Lispro Human (Humalog Mix 75/25) 15 units SC ACBD [facility] Last Admin: 11/20/18 17:08 Dose: 15 u Ipratropium [place] (Atrovent) 0.5 mg IH [id number] [facility] Last Admin: 11/21/18 07:15 Dose: 0.5 mg Iron Sucrose (Venofer) 100 mg IVP DAILY [facility] Levalbuterol HCl (Xopenex) 0.63 mg IH [id number] PRN PRN Reason: Shortness of Breath Last Admin: 11/20/18 19:43 Dose: 0.63 mg Losartan Potassium (Cozaar) 100 mg PO DAILY [facility] Last Admin: 11/20/18 08:41 Dose: 100 mg Pantoprazole Sodium (Protonix Ec Tab) 40 mg PO HS [facility] Last Admin: 11/20/18 22:35 Dose: 40 mg Pregabalin (Lyrica) 100 mg PO HS [facility] Last Admin: 11/20/18 22:34 Dose: 100 mg - Labs Labs: 11/21/18 06:30 11/20/18 05:00 PT 11.3 SECONDS (9.4-12.5) 11/19/18 17:56 INR 1.02 11/19/18 17:56 APTT 41.2 Seconds (26.9-38.3) H 11/19/18 17:56 - Constitutional Appears: Non-toxic, No Acute Distress - Head Exam Head Exam: NORMAL INSPECTION, NORMOCEPHALIC - Eye Exam Eye Exam: Normal appearance Pupil Exam: NORMAL ACCOMODATION - ENT Exam ENT Exam: Mucous Membranes Moist, Normal Exam - Respiratory Exam Respiratory Exam: Decreased Breath Sounds, Clear to Ausculation Bilateral, NORMAL BREATHING PATTERN - GI/Abdominal Exam GI & Abdominal Exam: Soft, Normal Bowel Sounds - Extremities Exam Extremities Exam: Full ROM, Normal Capillary Refill - Neurological Exam Neurological Exam: Alert, Awake, Oriented x3 - Psychiatric Exam Psychiatric exam: Normal Affect, Normal Mood - Skin Skin Exam: Dry, Normal Color, Warm Assessment and Plan - Assessment and Plan (Free Text) Assessment: A 58 year old female who came in to the ER due to having R groin pain that she has been having over the past few weeks associated with nausea and vomiting. History of hypertension, hyperlipidemia, diabetes and non obstructive coronary artery disease, right rotator cuff (2015), gastric band (2007), gastric band replacement (2009), gastric band removal (2015), partial hysterectomy,(2006), to fatoumata hysterectomy and BSO, former smoker. On 10/12/18 had positive stress test showing anteroseptal anterolateral ischemia. Cardiac cath done on 10/21/2018 showed non obstructive coronary artery disease, distal circumflex 55% stenosis. Echo done on 10/12/18 showed LVEF 50-55%, mild to moderate LVH, mild mitral regurgitation, trace aortic and tricuspid regurgitation. CT of abdomen and pelvis done and showed hepatomegaly,distended gallbladder, diverticulosis, mild constipation. Uncontrolled hypertension, IV Hydralazine given in ER. Controlled blood pressure now. Pulmonary on consult. Plan: No distress Controlled blood pressure now Continue Norvasc 10 mg daily, Clonidine 0.2 mg/24 hour patch Cozaar 100 mg daily On ASA 81 mg daily, Lipitor 10 mg daily, Lovenox 40 mg daily, Continue current medications Continue current management Control glucose Pulmonary on consult Will follow up Plan and treatment discussed with Dr. Meyers
[2018-11-21] MEDS: Insulin Regular 1 UNITS/0.01 ML ML SC SCH ×4 (08:31→22:30)
[2018-11-21] MEDS: Insulin Lispro (humaLOG) MIX 75/25(10 ml) SC SCH ×2 (08:35→16:53)
[2018-11-21] MEDS: Enoxaparin 40 mg Syringe SC SCH (09:33)
[2018-11-21] MEDS ORDERED: Iron Sucrose 100 mg/5 ml Inj IVP SCH (10:00)
[2018-11-21 11:51] LABS: URINE BILIRUBIN NEGATIVE (NEGATIVE); URINE BLOOD NEGATIVE (NEGATIVE); URINE GLUCOSE (UA) 250 mg/dL (NEGATIVE); URINE LEUKOCYTE ESTERASE TRACE Leu/uL (NEGATIVE); URINE PROTEIN TRACE mg/dL (<30 mg/dL); URINE UROBILINOGEN 0.2 E.U./dL (<1 E.U./dL)
[2018-11-21 12:05] LABS: URINE APPEARANCE CLEAR (CLEAR); URINE COLOR YELLOW (YELLOW)
[2018-11-21 12:07] LABS: URINE BACTERIA MANY /hpf; URINE RBC 0 - 2 /hpf (0-2)
[2018-11-21 12:08] LABS: URINE AMORPHOUS SEDIMENT FEW /hpf; URINE COARSE GRANULAR CAST TRACE /hpf
--- NOTE | 2018-11-21 19:47 | PN ---
DATE: 11/21/2018 PULMONARY PROGRESS NOTE REFERRING PHYSICIAN: Glo Guajardo MD. SUBJECTIVE: She is lying in the bed. Night was unremarkable. Apparently no one placed her CPAP on. No headache, no rhinitis. Also no diarrhea or leg swelling. Admits to snoring at nighttime. Daytime sleepy and tired. OBJECTIVE PHYSICAL EXAMINATION GENERAL: No acute distress. VITAL SIGNS: Temperature is 98, heart rate is 96, respiratory rate is 18, blood pressure 164/91, and pulse ox 97% on room air. HEENT: Moist mucous membranes, crowded airways. Mallampati score is 4. NECK: Supple. No JVD. LUNGS: Have fair air flow. No rhonchi. HEART: S1, S2. ABDOMEN: Soft, nontender. No organomegaly. EXTREMITIES: No edema. NEUROLOGIC: Awake and alert, follows simple commands. MEDICATIONS: She is on hydralazine 10 mg every 6 hours p.r.n., Atrovent 0.5 mg inhaled every 6 hours, clonidine patch weekly, Cozaar 100 mg daily, Ecotrin 81 mg daily. She is on insulin on daily basis, Lipitor 10 mg daily, Lovenox 40 mg daily, Lyrica 10 mg daily, Protonix 40 mg daily, Pulmicort inhaled twice a day, iron sucrose 100 mg daily, also getting vitamin B12 1000 mcg IM daily, Xopenex inhaled every 6 hours p.r.n. LABORATORY DATA: Shows hemoglobin 12.1, hematocrit 38.1, WBC 7.2, platelet count is 254. INR 1.02, PTT 41. Blood sugar this morning is 285. IMPRESSION AND PLAN: Hypertensive urgency, diabetes, coronary artery disease, history of chronic lung disease, suspected sleep apnea syndrome/hypoventilation syndrome. Case discussed with nursing staff. I also spoke to the patient in detail. We will try to get in touch with respiratory therapist to place continuous positive airway pressure on her tonight. Continue present blood pressure medication, bronchodilator. Need outpatient attended sleep study and pulmonary function test. Thank you and we will follow with you. Nancy Syed MD
[2018-11-21] MEDS: Pantoprazole 40 mg EC Tab PO SCH (21:13)
[2018-11-22] MEDS: Ipratropium 0.02% Inhal Soln (0.5 mg/2.5 ml) UD IH SCH ×5 (00:58→20:07)
--- NOTE | 2018-11-22 01:18 | PN ---
DATE: 11/21/2018 SUBJECTIVE: The patient was seen and examined at the bedside on 11/21/2018. Sleepy, arousable, feeling a little bit better, night was unremarkable. Apparently, no one placed her CPAP on last night. No fevers, no chills. No hematuria. No hematochezia. No headache. No dizziness. No chest pain. No palpitation. PHYSICAL EXAMINATION: VITAL SIGNS: Temperature 98, heart rate 93, respiratory rate 18, blood pressure 150/90, pulse oximetry 97% on room air. HEENT: Head: Normocephalic, atraumatic. Eyes: PERRLA. Extraocular muscles are intact. Conjunctivae clear. Nose patent. Mucous membrane moist. NECK: Supple. No carotid bruits. No JVD or thyromegaly. CHEST: Bilaterally symmetrical. HEART: S1 and S2 positive. LUNGS: Clear to auscultation. ABDOMEN: Soft. Bowel sounds present. No organomegaly. EXTREMITIES: No edema. No cyanosis. NEUROLOGIC: The patient is awake and alert. Moving all four extremities. No focal deficits. MEDICATIONS: Hydralazine, Atrovent, clonidine, Cozaar, Ecotrin, Lipitor, Lovenox, Lyrica, Protonix, Pulmicort, Xopenex. LABORATORY DATA: Hemoglobin 12.1, hematocrit 38.1, white blood cells 7.2, platelets 254. Blood sugar this morning was 285. ASSESSMENT AND PLAN: Ms. Saida Linares is a 58-year-old lady, came with hypertensive urgency, now blood pressure is getting better, a little bit depressed because she lost her family member, diabetes mellitus, coronary artery disease, history of chronic lung disease, sleep apnea syndrome, hypoventilation syndrome. Length of time discussion done with the patient. The patient is a very educated lady. She was seen in [facility] Gastrointestinal prophylaxis. Appreciated Dr. Syed's input. Cardiology saw the case also. Repeat laboratories. We will follow up. Glo Guajardo MD
--- NOTE | 2018-11-22 06:38 | CP.PCM.PN ---
Subjective - Date & Time of Evaluation Date of Evaluation: 11/22/18 Time of Evaluation: 06:35 - Subjective Subjective: Lying in bed, Awake, alert, no distress Reason for consultation and follow up: Cardiac evaluation and follow up of uncontrolled hypertension, history of non obstructive coronary artery disease, hypertension, hyperlipidemia, diabetes Seen and examined by me and Dr. Schaffer Objective - Vital Signs/Intake and Output Vital Signs (last 24 hours): Temp Pulse Resp BP Pulse Ox 97.7 F 91 H 20 150/95 H 97 11/22/18 05:12 11/22/18 05:12 11/22/18 05:12 11/22/18 05:12 11/22/18 05:12 Intake and Output: 11/21/18 11/22/18 18:59 06:59 Intake Total 540 Balance 540 - Medications Medications: Current Medications Amlodipine Besylate (Norvasc) 10 mg PO DAILY [facility] Last Admin: 11/21/18 09:33 Dose: 10 mg Aspirin (Ecotrin) 81 mg PO DAILY [facility] Last Admin: 11/21/18 09:33 Dose: 81 mg Atorvastatin Calcium (Lipitor) 10 mg PO DIN [facility] Last Admin: 11/21/18 16:56 Dose: 10 mg Budesonide (Pulmicort Respules) 0.5 mg IH [id number] [facility] Last Admin: 11/21/18 20:20 Dose: Not Given Clonidine HCl (Catapres-Tts2 0.2 Mg/24 Hr) 1 patch TD FRI [facility] Cyanocobalamin (Vitamin B12 1000 Mcg/Ml Inj) 1,000 mcg IM DAILY [facility] Last Admin: 11/21/18 09:34 Dose: 1,000 mcg Enoxaparin Sodium (Lovenox) 40 mg SC DAILY [facility]; Protocol Last Admin: 11/21/18 09:33 Dose: 40 mg Hydralazine HCl (Apresoline) 10 mg IVP Q6 PRN PRN Reason: hypertension Insulin Human Regular (Humulin R) 0 units SC ACHS [facility]; Protocol Last Admin: 11/21/18 22:30 Dose: Not Given Insulin Lispro Protam/Lispro Human (Humalog Mix 75/25) 15 units SC ACBD [facility] Last Admin: 11/21/18 16:53 Dose: 15 u Ipratropium [place] (Atrovent) 0.5 mg IH [id number] [facility] Last Admin: 11/22/18 01:03 Dose: Not Given Iron Sucrose (Venofer) 100 mg IVP DAILY [facility] Last Admin: 11/21/18 11:10 Dose: 100 mg Levalbuterol HCl (Xopenex) 0.63 mg IH [id number] PRN PRN Reason: Shortness of Breath Last Admin: 11/20/18 19:43 Dose: 0.63 mg Losartan Potassium (Cozaar) 100 mg PO DAILY [facility] Last Admin: 11/21/18 09:34 Dose: 100 mg Pantoprazole Sodium (Protonix Ec Tab) 40 mg PO HS [facility] Last Admin: 11/21/18 21:13 Dose: 40 mg Pregabalin (Lyrica) 100 mg PO HS [facility] Last Admin: 11/21/18 21:13 Dose: 100 mg - Labs Labs: 11/21/18 06:30 11/20/18 05:00 PT 11.3 SECONDS (9.4-12.5) 11/19/18 17:56 INR 1.02 11/19/18 17:56 APTT 41.2 Seconds (26.9-38.3) H 11/19/18 17:56 - Constitutional Appears: Non-toxic, No Acute Distress - Head Exam Head Exam: NORMAL INSPECTION, NORMOCEPHALIC - Eye Exam Eye Exam: Normal appearance Pupil Exam: NORMAL ACCOMODATION - ENT Exam ENT Exam: Mucous Membranes Moist, Normal Exam - Neck Exam Neck Exam: Full ROM, Normal Inspection - Respiratory Exam Respiratory Exam: Decreased Breath Sounds, Clear to Ausculation Bilateral, NO RMAL BREATHING PATTERN - Cardiovascular Exam Cardiovascular Exam: +S1, +S2 - GI/Abdominal Exam GI & Abdominal Exam: Soft, Normal Bowel Sounds - Extremities Exam Extremities Exam: Full ROM, Normal Capillary Refill - Neurological Exam Neurological Exam: Alert, Awake, Oriented x3 - Psychiatric Exam Psychiatric exam: Normal Affect, Normal Mood - Skin Skin Exam: Dry, Normal Color, Warm Assessment and Plan - Assessment and Plan (Free Text) Assessment: A 58 year old female who came in to the ER due to having R groin pain that she has been having over the past few weeks associated with nausea and vomiting. History of hypertension, hyperlipidemia, diabetes and non obstructive coronary artery disease, right rotator cuff (2015), gastric band (2007), gastric band replacement (2009), gastric band removal (2015), partial hysterectomy,(2006), total hysterectomy and BSO, former smoker. On 10/12/18 had positive stress test showing anteroseptal anterolateral ischemia. Cardiac cath done on 10/21/2018 sh owed non obstructive coronary artery disease, distal circumflex 55% stenosis. Echo done on 10/12/18 showed LVEF 50-55%, mild to moderate LVH, mild mitral regurgitation, trace aortic and tricuspid regurgitation. CT of abdomen and pelvis done and showed hepatomegaly,distended gallbladder, diverticulosis, mild constipation. Uncontrolled hypertension, IV Hydralazine given in ER and Cardene drip. Stabilized. Controlled blood pressure Pulmonary on consult. BiPAP/CPAP. Plan: No distress, feels okay Controlled blood pressure Heart rate stable On Norvasc 10 mg daily, Clonidine 0.2 mg/24 hour patch Cozaar 100 mg daily, ASA 81 mg daily, Lipitor 10 mg daily, Lovenox 40 mg daily, Continue current medications Continue current management Control glucose Pulmonary on consult Will follow up Plan and treatment discussed with Dr. Schaffer
[2018-11-22] MEDS: Budesonide 0.5 mg/2 ml Inhal Susp UD IH SCH ×2 (07:21→20:07)
[2018-11-22] MEDS: Insulin Regular 1 UNITS/0.01 ML ML SC SCH ×4 (08:50→22:03)
[2018-11-22] MEDS: Insulin Lispro (humaLOG) MIX 75/25(10 ml) SC SCH ×2 (08:50→17:18)
[2018-11-22] MEDS: Enoxaparin 40 mg Syringe SC SCH (10:30)
--- NOTE | 2018-11-22 13:05 | PN ---
DATE: 11/22/2018 PULMONARY PROGRESS NOTE REFERRING PHYSICIAN: Glo Guajardo MD SUBJECTIVE: The patient is seen lying in bed. No acute distress. No overnight events reported. Reports wearing CPAP machine for few hours last night. Reports last bowel movement was 3 days ago. No headache, rhinitis, cough, shortness of breath, chest pain, abdominal pain, nausea, vomiting, diarrhea, leg pain or leg swelling reported. OBJECTIVE GENERAL: No acute distress. VITAL SIGNS: Blood pressure 150/95, pulse 91, temperature 97.7, and oxygen saturation 97% on room air. HEENT: Moist mucous membranes. Crowded airways. Mallampati score of 4. NECK: Supple. No JVD. LUNGS: Fair air flow bilaterally. CARDIOVASCULAR: S1 and S2. ABDOMEN: Soft and nontender. No distention. No organomegaly. EXTREMITIES: No bilateral lower extremity edema. NEUROLOGIC: Awake, alert and verbal. Following commands. MEDICATIONS: Reviewed. Norvasc 10 mg daily, aspirin 81 mg daily, Lipitor 10 mg at dinner, Pulmicort 0.5 mg inhalation every 12 hours, clonidine 0.2 mg patch every Thursday, vitamin B12 1000 mcg daily, Lovenox 40 mg subcutaneously daily, hydralazine 10 mg IV push every 6 hours p.r.n., Humulin R sliding scale a.c. and at bedtime, Humalog mix 75/25 at 15 units subcutaneous a.c., Atrovent 0.5 mg inhalation every 6 hours, Xopenex 0.63 mg inhalation every 6 hours p.r.n., Cozaar 100 mg daily, Protonix 40 mg at bedtime and Lyrica 100 mg at bedtime. LABORATORY DATA: Reviewed. POC glucose 293. IMPRESSION AND PLAN: Hypertensive urgency, diabetes, coronary artery disease, suspected sleep apnea syndrome or hypoventilation syndrome, history of chronic lung disease. Discuss continuous positive airway pressure use with the patient. We will continue to encourage continuous positive airway pressure use at bedtime, sleep apnea precaution, head of bed elevated at 45 degrees. Continue inhaled bronchodilators. Continue Cardiology followup. We will place the patient on MiraLax daily for constipation. We recommended this patient has attended sleep study as outpatient and full pulmonary function test as outpatient. This patient was seen and examined with Dr. Syed. Discussed assessment and plan as described above. This patient was seen and examined with Jacobo Howard, nurse practitioner. Discussed assessment and plan as described above. Thank you for this consult and we will follow with you. Jacobo Howard APN Nancy Syed MD
--- NOTE | 2018-11-22 14:26 | CP.PCM.PN ---
<Luciano Estrada - Last Filed: 11/22/18 14:17> Subjective - Date & Time of Evaluation Date of Evaluation: 11/22/18 Time of Evaluation: 14:17 - Subjective Subjective: Martinez Estrada PGY2 - Progress Note for Dr. Farah Patient seen and examined. Nursing notes indicated patient to be agitated overnight. Patient reports that she is experiencing elevated levels of stress secondary to loss of her father recently. She denies chest pain, shortness of breath, abdominal pain, changes in vision. She does report headache, likely secondary to elevated blood pressure. Objective - Vital Signs/Intake and Output Vital Signs (last 24 hours): Temp Pulse Resp BP Pulse Ox 97.7 F 91 H 20 166/100 H 97 11/22/18 06:00 11/22/18 06:00 11/22/18 06:00 11/22/18 10:31 11/22/18 06:00 Intake and Output: 11/22/18 11/22/18 06:59 18:59 Intake Total 540 Balance 540 - Medications Medications: Current Medications Amlodipine Besylate (Norvasc) 10 mg PO DAILY [facility] Last Admin: 11/22/18 10:31 Dose: 10 mg Aspirin (Ecotrin) 81 mg PO DAILY [facility] Last Admin: 11/22/18 10:31 Dose: 81 mg Atorvastatin Calcium (Lipitor) 10 mg PO DIN [facility] Last Admin: 11/21/18 16:56 Dose: 10 mg Budesonide (Pulmicort Respules) 0.5 mg IH [id number] [facility] Last Admin: 11/22/18 07:21 Dose: 0.5 mg Clonidine HCl (Catapres-Tts2 0.2 Mg/24 Hr) 1 patch TD FRI [facility] Cyanocobalamin (Vitamin B12 1000 Mcg/Ml Inj) 1,000 mcg IM DAILY [facility] Last Admin: 11/22/18 10:30 Dose: 1,000 mcg Enoxaparin Sodium (Lovenox) 40 mg SC DAILY [facility]; Protocol Last Admin: 11/22/18 10:30 Dose: 40 mg Hydralazine HCl (Apresoline) 10 mg IVP Q6 PRN PRN Reason: hypertension Insulin Human Regular (Humulin R) 0 units SC [facility]; Protocol Last Admin: 11/22/18 12:05 Dose: 3 units Insulin Lispro Protam/Lispro Human (Humalog Mix 75/25) 15 units SC ACBD [facility] Last Admin: 11/22/18 08:50 Dose: 15 u Ipratropium [place] (Atrovent) 0.5 mg IH [id number] [facility] Last Admin: 11/22/18 13:40 Dose: 0.5 mg Levalbuterol HCl (Xopenex) 0.63 mg IH [id number] PRN PRN Reason: Shortness of Breath Last Admin: 11/20/18 19:43 Dose: 0.63 mg Losartan Potassium (Cozaar) 100 mg PO DAILY [facility] Last Admin: 11/22/18 10:30 Dose: 100 mg Pantoprazole Sodium (Protonix Ec Tab) 40 mg PO HS [facility] Last Admin: 11/21/18 21:13 Dose: 40 mg Polyethylene Glycol (Miralax) 17 gm PO DAILY [facility] Pregabalin (Lyrica) 100 mg PO HS [facility] Last Admin: 11/21/18 21:13 Dose: 100 mg - Labs Labs: 11/21/18 06:30 11/20/18 05:00 PT 11.3 SECONDS (9.4-12.5) 11/19/18 17:56 INR 1.02 11/19/18 17:56 APTT 41.2 Seconds (26.9-38.3) H 11/19/18 17:56 - Constitutional Appears: No Acute Distress - Head Exam Head Exam: ATRAUMATIC, NORMOCEPHALIC - Eye Exam Eye Exam: EOMI, PERRL - ENT Exam ENT Exam: Mucous Membranes Moist - Respiratory Exam Respiratory Exam: Clear to Ausculation Bilateral, NORMAL BREATHING PATTERN - Cardiovascular Exam Cardiovascular Exam: REGULAR RHYTHM, +S1, +S2 - GI/Abdominal Exam GI & Abdominal Exam: Soft, Normal Bowel Sounds. absent: Tenderness - Neurological Exam Neurological Exam: Alert, Awake, CN II-XII Intact, Oriented x3 Neuro motor strength exam: Left Upper Extremity: 5, Right Upper Extremity: 5, Left Lower Extremity: 5, Right Lower Extremity: 5 - Psychiatric Exam Psychiatric exam: Depressed - Skin Skin Exam: Dry, Warm Assessment and Plan - Assessment and Plan (Free Text) Assessment: 1.Hypertensive urgency 2.Resistant Hypertension 3.Diabetes Type 2 uncontrolled 4.Coronary artery disease 5.Dyslipidemia Patient blood pressure over past 24-48 hours and noted to be elevated. Will continue patient on amlodipine, losartan and clonidine and hydralazine prn. Adequate blood pressure control is important for this patient to avoid secondary complications including ND, stroke and progression of renal disease. Will co nsider starting diuretic if continued elevation of blood pressure. Continue Lipitor for dyslipidemia. Continue aspirin and statin for coronary artery disease. Patient is on insulin for her diabetes and blood sugars appear to be controlled. <Konstantin Farah S - Last Filed: 11/22/18 17:38> Objective - Vital Signs/Intake and Output Vital Signs (last 24 hours): Temp Pulse Resp BP Pulse Ox 98.7 F 97 H 20 148/77 95 11/22/18 14:00 11/22/18 14:00 11/22/18 14:00 11/22/18 14:00 11/22/18 14:00 Intake and Output: 11/22/18 11/22/18 06:59 18:59 Intake Total 540 360 Balance 540 360 - Medications Medications: Current Medications Amlodipine Besylate (Norvasc) 10 mg PO DAILY [facility] Last Admin: 11/22/18 10:31 Dose: 10 mg Aspirin (Ecotrin) 81 mg PO DAILY [facility] Last Admin: 11/22/18 10:31 Dose: 81 mg Atorvastatin Calcium (Lipitor) 10 mg PO DIN [facility] Last Admin: 11/21/18 16:56 Dose: 10 mg Budesonide (Pulmicort Respules) 0.5 mg IH [id number] [facility] Last Admin: 11/22/18 07:21 Dose: 0.5 mg Clonidine HCl (Catapres-Tts3 0.3 Mg/24 Hr) 1 patch TD Q7D@1000 [facility] Cyanocobalamin (Vitamin B12 1000 Mcg/Ml Inj) 1,000 mcg IM DAILY [facility] Last Admin: 11/22/18 10:30 Dose: 1,000 mcg Enoxaparin Sodium (Lovenox) 40 mg SC DAILY [facility]; Protocol Last Admin: 11/22/18 10:30 Dose: 40 mg Hydralazine HCl (Apresoline) 10 mg IVP Q6 PRN PRN Reason: hypertension Insulin Human Regular (Humulin R) 0 units SC ACHS [facility]; Protocol Last Admin: 11/22/18 17:16 Dose: 3 units Insulin Lispro Protam/Lispro Human (Humalog Mix 75/25) 15 units SC ACBD [facility] Last Admin: 11/22/18 17:18 Dose: 15 u Ipratropium [place] (Atrovent) 0.5 mg IH [id number] [facility] Last Admin: 11/22/18 13:40 Dose: 0.5 mg Levalbuterol HCl (Xopenex) 0.63 mg IH [id number] PRN PRN Reason: Shortness of Breath Last Admin: 11/20/18 19:43 Dose: 0.63 mg Losartan Potassium (Cozaar) 100 mg PO DAILY [facility] Last Admin: 11/22/18 10:30 Dose: 100 mg Pantoprazole Sodium (Protonix Ec Tab) 40 mg PO HS [facility] Last Admin: 11/21/18 21:13 Dose: 40 mg Polyethylene Glycol (Miralax) 17 gm PO DAILY [facility] Pregabalin (Lyrica) 100 mg PO HS [facility] Last Admin: 11/21/18 21:13 Dose: 100 mg - Labs Labs: 11/21/18 06:30 11/20/18 05:00 PT 11.3 SECONDS (9.4-12.5) 11/19/18 17:56 INR 1.02 11/19/18 17:56 APTT 41.2 Seconds (26.9-38.3) H 11/19/18 17:56 Assessment and Plan - Assessment and Plan (Free Text) Assessment: Pt seen and examined by me. 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 I have discussed the assessment and plan with the resident. I have reviewed the medications and the last labs.
[2018-11-22] MEDS: POLYETHYLENE GLYCOL 3350 17 GM/Dose PACKET PO SCH (18:30)
[2018-11-22] MEDS: Pantoprazole 40 mg EC Tab PO SCH (21:13)
--- NOTE | 2018-11-22 22:26 | PN ---
DATE: 11/22/2018 The patient was seen and examined. I do agree with the note of the medical records clerk. I was involved in the plan of care. The patient is being followed for hypertension. The patient's blood pressure has improved. She had hypertensive urgency that has resolved. She is on Lipitor for her dyslipidemia. She has diabetes and is on insulin sliding scale. She is on clonidine, losartan, and Norvasc for her hypertension. Her blood pressure is 148/77. She has normal kidney function. I will place her on hydrochlorothiazide to help with her blood pressure control. I will also order a renin and aldosterone level to look for hyperaldosteronism. She will need renal arterial ultrasound to evaluate further for secondary hypertension and rule out renal artery stenosis. Konstantin Farah MD
[2018-11-23] MEDS: Ipratropium 0.02% Inhal Soln (0.5 mg/2.5 ml) UD IH SCH ×4 (03:53→21:30)
[2018-11-23] MEDS: Budesonide 0.5 mg/2 ml Inhal Susp UD IH SCH ×2 (07:35→21:30)
--- NOTE | 2018-11-23 07:39 | CP.PCM.PN ---
Subjective - Date & Time of Evaluation Date of Evaluation: 11/23/18 Time of Evaluation: 06:30 - Subjective Subjective: No distress,Lying in bed, Awake, alert, Reason for consultation and follow up: Cardiac evaluation and follow up of uncontrolled hypertension, history of non obstructive coronary artery disease, hypertension, hyperlipidemia, diabetes Seen and examined by me and Dr. Schaffer Objective - Vital Signs/Intake and Output Vital Signs (last 24 hours): Temp Pulse Resp BP Pulse Ox 98 F 86 18 144/74 95 11/23/18 06:00 11/23/18 06:29 11/23/18 06:00 11/23/18 06:29 11/23/18 06:00 Intake and Output: 11/23/18 11/23/18 06:59 18:59 Intake Total 860 Balance 860 - Medications Medications: Current Medications Amlodipine Besylate (Norvasc) 10 mg PO DAILY [facility] Last Admin: 11/22/18 10:31 Dose: 10 mg Aspirin (Ecotrin) 81 mg PO DAILY [facility] Last Admin: 11/22/18 10:31 Dose: 81 mg Atorvastatin Calcium (Lipitor) 10 mg PO DIN [facility] Last Admin: 11/22/18 18:31 Dose: 10 mg Budesonide (Pulmicort Respules) 0.5 mg IH [id number] [facility] Last Admin: 11/23/18 07:35 Dose: Not Given Clonidine HCl (Catapres-Tts3 0.3 Mg/24 Hr) 1 patch TD Q7D@1000 [facility] Last Admin: 11/22/18 18:27 Dose: 1 patch Cyanocobalamin (Vitamin B12 1000 Mcg/Ml Inj) 1,000 mcg IM DAILY [facility] Last Admin: 11/22/18 10:30 Dose: 1,000 mcg Enoxaparin Sodium (Lovenox) 40 mg SC DAILY [facility]; Protocol Last Admin: 11/22/18 10:30 Dose: 40 mg Hydralazine HCl (Apresoline) 10 mg IVP Q6 PRN PRN Reason: hypertension Last Admin: 11/23/18 03:06 Dose: 10 mg Hydrochlorothiazide (Microzide) 12.5 mg PO DAILY [facility] Last Admin: 11/22/18 18:27 Dose: 12.5 mg Insulin Human Regular (Humulin R) 0 units SC [facility]; Protocol Last Admin: 11/22/18 22:03 Dose: Not Given Insulin Lispro Protam/Lispro Human (Humalog Mix 75/25) 15 units SC ACBD [facility] Last Admin: 11/22/18 17:18 Dose: 15 u Ipratropium [place] (Atrovent) 0.5 mg IH [id number] [facility] Last Admin: 11/23/18 07:35 Dose: Not Given Levalbuterol HCl (Xopenex) 0.63 mg IH [id number] PRN PRN Reason: Shortness of Breath Last Admin: 11/20/18 19:43 Dose: 0.63 mg Losartan Potassium (Cozaar) 100 mg PO DAILY [facility] Last Admin: 11/22/18 10:30 Dose: 100 mg Pantoprazole Sodium (Protonix Ec Tab) 40 mg PO HS [facility] Last Admin: 11/22/18 21:13 Dose: 40 mg Polyethylene Glycol (Miralax) 17 gm PO DAILY [facility] Last Admin: 11/22/18 18:30 Dose: 17 gm Pregabalin (Lyrica) 100 mg PO [facility] Last Admin: 11/22/18 21:13 Dose: 100 mg - Labs Labs: 11/21/18 06:30 11/20/18 05:00 PT 11.3 SECONDS (9.4-12.5) 11/19/18 17:56 INR 1.02 11/19/18 17:56 APTT 41.2 Seconds (26.9-38.3) H 11/19/18 17:56 - Constitutional Appears: Non-toxic, No Acute Distress - Head Exam Head Exam: NORMAL INSPECTION, NORMOCEPHALIC - Eye Exam Eye Exam: Normal appearance Pupil Exam: NORMAL ACCOMODATION - ENT Exam ENT Exam: Mucous Membranes Moist - Respiratory Exam Respiratory Exam: Decreased Breath Sounds, Clear to Ausculation Bilateral, NORMAL BREATHING PATTERN - Cardiovascular Exam Cardiovascular Exam: +S1, +S2 - GI/Abdominal Exam GI & Abdominal Exam: Soft, Normal Bowel Sounds - Extremities Exam Extremities Exam: Full ROM, Normal Capillary Refill - Neurological Exam Neurological Exam: Alert, Awake, Oriented x3 - Psychiatric Exam Psychiatric exam: Depressed - Skin Skin Exam: Dry, Normal Color, Warm Assessment and Plan - Assessment and Plan (Free Text) Assessment: A 58 year old female who came in to the ER due to having R groin pain that she has been having over the past few weeks associated with nausea and vomiting. History of hypertension, hyperlipidemia, diabetes and non obstructive coronary artery disease, right rotator cuff (2016), gastric band (2008), gastric band replacement (2009), gastric band removal (2016), partial hysterectomy,(2006), total hysterectomy and BSO, former smoker. On 10/12/18 had positive stress test showing anteroseptal anterolateral ischemia. Cardiac cath done on 10/21/2018 showed non obstructive coronary artery disease, distal circumflex 55% stenosis. Echo done on 10/12/18 showed LVEF 50-55%, mild to moderate LVH, mild mitral regurgitation, trace aortic and tricuspid regurgitation. CT of abdomen and pel vis done and showed hepatomegaly,distended gallbladder, diverticulosis, mild constipation. Uncontrolled hypertension, IV Hydralazine given in ER and Cardene drip. Stabilized. Pulmonary on consult. BiPAP/CPAP. For renal ultrasound. Plan: For Renal ultrasound No distress, feels okay Blood pressure elevated especially at night Hydralazine PRN, Microzide added and Clonidine increased Heart rate stable On Norvasc 10 mg daily, Clonidine 0.3 mg/24 hour patch, Microzide 12.5 mg daily Cozaar 100 mg daily, ASA 81 mg daily, Lipitor 10 mg daily, Lovenox 40 mg daily, Continue current medications Continue current management Control glucose Pulmonary on consult May benefit Psych evaluation (recent loss of father) Will follow up Plan and treatment discussed with Dr. Schaffer
--- NOTE | 2018-11-23 08:33 | CP.PCM.PN ---
Subjective - Date & Time of Evaluation Date of Evaluation: 11/23/18 Time of Evaluation: 08:28 - Subjective Subjective: She was seen at bedside earlier. Patient was given tylenol for headache. I was asked to co-sign order of Tylenol 650 mg PO x 1, Norvasc 5 mg PO x 1 , Benadryl 25 mg PO x 1. Has no headache now. Denied dizziness, nasuea, weakness, paraesthesia, chest pain. Medical record was reviewed. This 58 year old woman was admitted for right groin pain, diarrhoea, hypertensive urgency. Has PMH of HTN, DM, CHF, anemia , gastritis,HLD Objective - Vital Signs/Intake and Output Vital Signs (last 24 hours): Temp Pulse Resp BP Pulse Ox 98 F 86 18 144/74 95 11/23/18 06:00 11/23/18 06:29 11/23/18 06:00 11/23/18 06:29 11/23/18 06:00 Intake and Output: 11/23/18 11/23/18 06:59 18:59 Intake Total 860 Balance 860 - Medications Medications: Current Medications Amlodipine Besylate (Norvasc) 10 mg PO DAILY [facility] Last Admin: 11/22/18 10:31 Dose: 10 mg Aspirin (Ecotrin) 81 mg PO DAILY [facility] Last Admin: 11/22/18 10:31 Dose: 81 mg Atorvastatin Calcium (Lipitor) 10 mg PO DIN [facility] Last Admin: 11/22/18 18:31 Dose: 10 mg Budesonide (Pulmicort Respules) 0.5 mg IH [id number] [facility] Last Admin: 11/23/18 07:35 Dose: Not Given Clonidine HCl (Catapres-Tts3 0.3 Mg/24 Hr) 1 patch TD Q7D@1000 [facility] Last Admin: 11/22/18 18:27 Dose: 1 patch Cyanocobalamin (Vitamin B12 1000 Mcg/Ml Inj) 1,000 mcg IM DAILY [facility] Last Admin: 11/22/18 10:30 Dose: 1,000 mcg Enoxaparin Sodium (Lovenox) 40 mg SC DAILY [facility]; Protocol Last Admin: 11/22/18 10:30 Dose: 40 mg Hydralazine HCl (Apresoline) 10 mg IVP Q6 PRN PRN Reason: hypertension Last Admin: 11/23/18 03:06 Dose: 10 mg Hydrochlorothiazide (Microzide) 12.5 mg PO DAILY [facility] Last Admin: 11/22/18 18:27 Dose: 12.5 mg Insulin Human Regular (Humulin R) 0 units SC ACHS [facility]; Protocol Last Admin: 11/22/18 22:03 Dose: Not Given Insulin Lispro Protam/Lispro Human (Humalog Mix 75/25) 15 units SC ACBD [facility] Last Admin: 11/22/18 17:18 Dose: 15 u Ipratropium [place] (Atrovent) 0.5 mg IH [id number] [facility] Last Admin: 11/23/18 07:35 Dose: Not Given Levalbuterol HCl (Xopenex) 0.63 mg IH [id number] PRN PRN Reason: Shortness of Breath Last Admin: 11/20/18 19:43 Dose: 0.63 mg Losartan Potassium (Cozaar) 100 mg PO DAILY [facility] Last Admin: 11/22/18 10:30 Dose: 100 mg Pantoprazole Sodium (Protonix Ec Tab) 40 mg PO [facility] Last Admin: 11/22/18 21:13 Dose: 40 mg Polyethylene Glycol (Miralax) 17 gm PO DAILY [facility] Last Admin: 11/22/18 18:30 Dose: 17 gm Pregabalin (Lyrica) 100 mg PO HS [facility] Last Admin: 11/22/18 21:13 Dose: 100 mg - Labs Labs: 11/21/18 06:30 11/20/18 05:00 PT 11.3 SECONDS (9.4-12.5) 11/19/18 17:56 INR 1.02 11/19/18 17:56 APTT 41.2 Seconds (26.9-38.3) H 11/19/18 17:56 - Constitutional Appears: Well, No Acute Distress - Head Exam Head Exam: ATRAUMATIC, NORMAL INSPECTION, NORMOCEPHALIC - Eye Exam Eye Exam: Normal appearance - ENT Exam ENT Exam: Normal External Ear Exam - Neck Exam Neck Exam: Normal Inspection - Respiratory Exam Respiratory Exam: NORMAL BREATHING PATTERN - Cardiovascular Exam Cardiovascular Exam: absent: JVD - GI/Abdominal Exam GI & Abdominal Exam: absent: Distended - Rectal Exam Rectal Exam: Deferred - Exam Additional comments: Deferred. - Extremities Exam Extremities Exam: Normal Inspection - Back Exam Back Exam: NORMAL INSPECTION - Neurological Exam Neurological Exam: Alert, Awake - Psychiatric Exam Psychiatric exam: Anxious - Skin Skin Exam: Normal Color Assessment and Plan - Assessment and Plan (Free Text) Assessment: Headache. HTN DM CHF Anemia Gastritis HLD. Plan: Tylenol 650 mg PO x 1. Norvasc 5 mg PO x 1 Continue management as per PMD.
--- NOTE | 2018-11-23 08:34 | US ---
PROCEDURE: Bilateral renal artery duplex ultrasound. CLINICAL HISTORY: Renal artery stenosis. Uncontrolled hypertension. Evaluate for renovascular hypertension. PHYSICIAN(S): Ahmet Nagel M.D. TECHNIQUE: Duplex sonography with color-flow Doppler was used to evaluate the visualized segments of the main renal arteries. The patient was evaluated in a fasting state. Imaging in a supine and decubitus position was performed. Limited evaluation of the arcuate waveforms and resistive indices were performed. FINDINGS: The overall quality of the study is adequate. The kidneys are normal in size, shape, and location. The right kidney measures 11.0cm in length and the left kidney measures 10.1cm in length. No solid renal masses, abnormal calcifications, or hydronephrosis is seen. The main right renal artery is well visualized from the aorta to the hilum. The peak systolic velocity in the right main renal artery is 77 cm/sec. This is consistent with a 0 to 49% stenosis in the main right renal artery. The arcuate waveforms are normal. The resistive index is normal. The main left renal artery is also well seen from its origin to the renal hilum. The peak systolic velocity in the main left renal artery is 60cm/sec. This corresponds to a 0 to 49% stenosis in the main left renal artery. The arcuate waveforms and resistive indices are normal. IMPRESSION: 1. The main renal arteries are well visualized. 2. No sonographically significant stenosis is identified. 3. The kidneys are normal and symmetric in size. There are no solid renal masses, abnormal calcifications or hydronephrosis noted.
[2018-11-23] MEDS: Insulin Lispro (humaLOG) MIX 75/25(10 ml) SC SCH ×2 (08:35→17:26)
[2018-11-23] MEDS: Insulin Regular 1 UNITS/0.01 ML ML SC SCH ×4 (08:35→21:54)
--- NOTE | 2018-11-23 10:18 | CP.PCM.PN ---
<Luciano Estrada - Last Filed: 11/23/18 10:42> Subjective - Date & Time of Evaluation Date of Evaluation: 11/23/18 Time of Evaluation: 10:15 - Subjective Subjective: Martinez Estrada PGY2 Progress Note for Dr. Farah Patient seen and examined at bedside. Patient reports continued headache overnight. Patient was given tylenol with minimal relief of pain. She denies changes in vision, chest pain, shortness of breath, abdominal discomfort, nausea, vomiting, fever, chills. Objective - Vital Signs/Intake and Output Vital Signs (last 24 hours): Temp Pulse Resp BP Pulse Ox 98 F 86 18 144/74 95 11/23/18 06:00 11/23/18 06:29 11/23/18 06:00 11/23/18 06:29 11/23/18 06:00 Intake and Output: 11/23/18 11/23/18 06:59 18:59 Intake Total 860 Balance 860 - Medications Medications: Current Medications Amlodipine Besylate (Norvasc) 10 mg PO DAILY [facility] Last Admin: 11/22/18 10:31 Dose: 10 mg Aspirin (Ecotrin) 81 mg PO DAILY [facility] Last Admin: 11/22/18 10:31 Dose: 81 mg Atorvastatin Calcium (Lipitor) 40 mg PO DIN [facility] Budesonide (Pulmicort Respules) 0.5 mg IH [id number] [facility] Last Admin: 11/23/18 07:35 Dose: Not Given Clonidine HCl (Catapres-Tts3 0.3 Mg/24 Hr) 1 patch TD Q7D@1000 [facility] Last Admin: 11/22/18 18:27 Dose: 1 patch Cyanocobalamin (Vitamin B12 1000 Mcg/Ml Inj) 1,000 mcg IM DAILY [facility] Last Admin: 11/22/18 10:30 Dose: 1,000 mcg Enoxaparin Sodium (Lovenox) 40 mg SC DAILY [facility]; Protocol Last Admin: 11/22/18 10:30 Dose: 40 mg Hydralazine HCl (Apresoline) 10 mg IVP Q6 PRN PRN Reason: hypertension Last Admin: 11/23/18 03:06 Dose: 10 mg Hydrochlorothiazide (Microzide) 12.5 mg PO DAILY [facility] Last Admin: 11/22/18 18:27 Dose: 12.5 mg Insulin Human Regular (Humulin R) 0 units SC ACHS [facility]; Protocol Last Admin: 11/23/18 08:35 Dose: 2 units Insulin Lispro Protam/Lispro Human (Humalog Mix 75/25) 15 units SC ACBD [facility] Last Admin: 11/23/18 08:35 Dose: 15 u Ipratropium [place] (Atrovent) 0.5 mg IH [id number] [facility] Last Admin: 11/23/18 07:35 Dose: Not Given Levalbuterol HCl (Xopenex) 0.63 mg IH [id number] PRN PRN Reason: Shortness of Breath Last Admin: 11/20/18 19:43 Dose: 0.63 mg Losartan Potassium (Cozaar) 100 mg PO DAILY [facility] Last Admin: 11/22/18 10:30 Dose: 100 mg Pantoprazole Sodium (Protonix Ec Tab) 40 mg PO [facility] Last Admin: 11/22/18 21:13 Dose: 40 mg Polyethylene Glycol (Miralax) 17 gm PO DAILY [facility] Last Admin: 11/22/18 18:30 Dose: 17 gm Pregabalin (Lyrica) 100 mg PO [facility] Last Admin: 11/22/18 21:13 Dose: 100 mg - Labs Labs: 11/21/18 06:30 11/20/18 05:00 PT 11.3 SECONDS (9.4-12.5) 11/19/18 17:56 INR 1.02 11/19/18 17:56 APTT 41.2 Seconds (26.9-38.3) H 11/19/18 17:56 - Constitutional Appears: Non-toxic - Head Exam Head Exam: ATRAUMATIC, NORMOCEPHALIC - Eye Exam Eye Exam: EOMI, PERRL - ENT Exam ENT Exam: Mucous Membranes Moist - Respiratory Exam Respiratory Exam: Clear to Ausculation Bilateral, NORMAL BREATHING PATTERN - Cardiovascular Exam Cardiovascular Exam: REGULAR RHYTHM, +S1, +S2 - GI/Abdominal Exam GI & Abdominal Exam: Soft, Normal Bowel Sounds - Extremities Exam Extremities Exam: absent: Calf Tenderness - Neurological Exam Neurological Exam: Alert, Awake, Oriented x3 Neuro motor strength exam: Left Upper Extremity: 5, Right Upper Extremity: 5, Left Lower Extremity: 5, Right Lower Extremity: 5 - Psychiatric Exam Psychiatric exam: Normal Affect, Normal Mood - Skin Skin Exam: Dry, Warm Assessment and Plan - Assessment and Plan (Free Text) Assessment: 1.Hypertensive urgency 2.Resistant Hypertension 3.Diabetes Type 2 uncontrolled 4.Coronary artery disease 5.Dyslipidemia Patient blood pressure over past 24 hours trended and appreciated. Patient restarted on her clonidine 0.3 mg patch Q7days and started on HCTZ 12.5 mg. Blood pressure has shown improvement. Will continue to monitor patient symptoms as well as BP. Patient is now on three anti-hypertensives and diuretic. Patient's elevated BP possibly explained by race and likely elevated sensitivity to sodium. Aldosterone and Renin ordered for evaluation of RAAS system as other causes of secondary hypertension are less likely with floridalma l Head CT, normal TSH levels, renal ultrasound showing no evidence of stenosis and normal to low levels of calcium. Patient's elevated BP can be Start patient on 2gm restricted sodium diet. Patient noted to have elevated ASCVD risk of 12.8% with LDL >70. Increased patients Lipitor to 40mg with eventual planned goal of LDL <70. Patient seen, case and plan discussed with attending, Dr. Farah <Konstantin Farah S - Last Filed: 11/23/18 16:22> Objective - Vital Signs/Intake and Output Vital Signs (last 24 hours): Temp Pulse Resp BP Pulse Ox 98.8 F 110 H 20 150/92 H 97 11/23/18 14:00 11/23/18 14:00 11/23/18 14:00 11/23/18 14:00 11/23/18 14:00 Intake and Output: 11/23/18 11/23/18 06:59 18:59 Intake Total 860 480 Balance 860 480 - Medications Medications: Current Medications Amlodipine Besylate (Norvasc) 10 mg PO DAILY [facility] Last Admin: 11/23/18 11:19 Dose: 10 mg Aspirin (Ecotrin) 81 mg PO DAILY [facility] Last Admin: 11/23/18 11:18 Dose: 81 mg Atorvastatin Calcium (Lipitor) 40 mg PO DAILY [facility] Budesonide (Pulmicort Respules) 0.5 mg IH [id number] [facility] Last Admin: 11/23/18 07:35 Dose: Not Given Clonidine HCl (Catapres-Tts3 0.3 Mg/24 Hr) 1 patch TD Q7D@1000 [facility] Last Admin: 11/22/18 18:27 Dose: 1 patch Cyanocobalamin (Vitamin B12 1000 Mcg/Ml Inj) 1,000 mcg IM DAILY [facility] Last Admin: 11/23/18 11:16 Dose: 1,000 mcg Enoxaparin Sodium (Lovenox) 40 mg SC DAILY [facility]; Protocol Last Admin: 11/23/18 11:16 Dose: 40 mg Hydralazine HCl (Apresoline) 10 mg IVP Q6 PRN PRN Reason: hypertension Last Admin: 11/23/18 03:06 Dose: 10 mg Hydrochlorothiazide (Hydrodiuril) 50 mg PO DAILY [facility] Insulin Human Regular (Humulin R) 0 units SC ACHS [facility]; Protocol Last Admin: 11/23/18 12:14 Dose: 2 units Insulin Lispro Protam/Lispro Human (Humalog Mix 75/25) 15 units SC ACBD [facility] Last Admin: 11/23/18 08:35 Dose: 15 u Ipratropium [place] (Atrovent) 0.5 mg IH [id number] [facility] Last Admin: 11/23/18 14:12 Dose: Not Given Levalbuterol HCl (Xopenex) 0.63 mg IH [id number] PRN PRN Reason: Shortness of Breath Last Admin: 11/20/18 19:43 Dose: 0.63 mg Losartan Potassium (Cozaar) 100 mg PO DAILY [facility] Last Admin: 11/23/18 11:19 Dose: 100 mg Pantoprazole Sodium (Protonix Ec Tab) 40 mg PO HS [facility] Last Admin: 11/22/18 21:13 Dose: 40 mg Polyethylene Glycol (Miralax) 17 gm PO DAILY [facility] Last Admin: 11/23/18 11:18 Dose: Not Given Pregabalin (Lyrica) 100 mg PO HS [facility] Last Admin: 11/22/18 21:13 Dose: 100 mg Spironolactone (Aldactone) 50 mg PO DAILY [facility] Zolpidem Tartrate (Ambien) 5 mg PO HS PRN; Protocol PRN Reason: Insomnia - Labs Labs: 11/21/18 06:30 11/20/18 05:00 PT 11.3 SECONDS (9.4-12.5) 11/19/18 17:56 INR 1.02 11/19/18 17:56 APTT 41.2 Seconds (26.9-38.3) H 11/19/18 17:56 Assessment and Plan - Assessment and Plan (Free Text) Assessment: Pt seen and examined by me. I have reviewed the note of the medical record retrieval specialist and I agree with it. I have discussed the assessment and plan with the resident. I have reviewed the medications and the last labs.
[2018-11-23] MEDS: Enoxaparin 40 mg Syringe SC SCH (11:16)
[2018-11-23] MEDS: POLYETHYLENE GLYCOL 3350 17 GM/Dose PACKET PO SCH (11:18)
--- NOTE | 2018-11-23 12:46 | PN ---
DATE: 11/23/2018 PULMONARY PROGRESS NOTE REFERRING PHYSICIAN: Glo Guajardo MD SUBJECTIVE: The patient is seen lying in bed. No acute distress. Last night, the patient's blood pressure was noted at 171/80. The patient was ordered Norvasc 5 mg to be given. Blood pressure rechecked and was 168/74, p.r.n. hydralazine was given. This morning, no headache, rhinitis, cough, shortness of breath, chest pain, abdominal pain, nausea, vomiting, diarrhea, leg pain or leg swelling reported. The patient did not wear CPAP machine last night. OBJECTIVE: GENERAL: No acute distress. VITAL SIGNS: Blood pressure 153/78, pulse 66, temperature 98, and oxygen saturation 95% on room air. HEENT: Moist mucous membranes. Crowded airway. Mallampati score of 4. NECK: Supple. No JVD. LUNGS: Fair airflow bilaterally. CARDIOVASCULAR: S1 and S2. ABDOMEN: Soft and nontender. No distention. No organomegaly. EXTREMITIES: No bilateral lower extremity edema. NEUROLOGIC: Awake, alert and verbal. Following commands. MEDICATIONS: Reviewed. Norvasc 10 mg daily, aspirin 81 mg daily, Lipitor 40 mg daily, Pulmicort 0.5 mg every 12 hours, clonidine 0.3 mg patch every 7 days, vitamin B12 1000 mcg daily, Lovenox 40 mg daily, hydralazine 10 mg IV push every 6 hours p.r.n., hydrochlorothiazide 12.5 mg daily, Humulin R sliding scale a.c. and h.s., Humalog mix 75/25 15 units subcu a.c., Atrovent 0.5 mg inhalation every 6 hours, Xopenex 0.63 mg inhalation every 6 hours p.r.n., Cozaar 100 mg daily, Protonix 40 mg at bedtime, MiraLax 17 g daily, and Lyrica 100 mg at bedtime. LABORATORY DATA: Reviewed. POC glucose 218. Renal artery duplex shows main renal artery is well visualized. No sonographically significant stenosis. Kidneys were normal and symmetric in size. No solid renal masses, abnormal calcification, or hydronephrosis noted. IMPRESSION AND PLAN: Hypertensive urgency, diabetes, coronary artery disease, suspected sleep apnea syndrome, hypoventilation syndrome, history of chronic lung disease, the patient has history of asthma. Continue to encourage continuous positive airway pressure use at bedtime, sleep apnea precaution, head of bed elevated at 45 degrees. Continue inhaled bronchodilators. We will increase hydrochlorothiazide to 50 mg daily. We will start the patient on spironolactone 50 mg daily for hypertension. We recommend the patient have attended sleep study as outpatient and full pulmonary function test as outpatient. This patient was seen and examined with Dr. Syed. Discussed assessment and plan as described above. This patient was seen and examined with Jacobo Howard, nurse practitioner. Discussed assessment and plan as described above. Thank you for this consult. We will follow with you. Jacobo Howard APN Nancy Syed MD
--- NOTE | 2018-11-23 14:10 | PN ---
DATE: 11/22/2018 SUBJECTIVE: The patient is a 58-year-old female. The patient was seen and examined at the bedside late evening on 11/22/2018. Looking comfortable. No fever. No chills. No hematuria. No hematochezia. No headache. No dizziness. No chest pain. No palpitation. Reports last bowel movement was three days ago. Sleepy, arousable, moving all four extremities. Reports wearing CPAP machine for 4 hours last night. No event noted last night. PHYSICAL EXAMINATION: VITAL SIGNS: Blood pressure 150/90, pulse 90, temperature 97.7, oxygen saturation 97% on room air. HEENT: Head normocephalic, atraumatic. Eyes PERRLA. Extraocular muscles are intact. Conjunctivae clear. Nose patent. NECK: Supple. No carotid bruits. No JVD or thyromegaly. CHEST: Bilaterally symmetrical. HEART: S1 and S2 positive. LUNGS: Clear to auscultation. ABDOMEN: Soft. Bowel sounds present. No organomegaly. EXTREMITIES: No edema. No cyanosis. NEUROLOGIC: The patient is awake and alert. Moving all four extremities. No focal deficits. MEDICATIONS: Norvasc, Lipitor, Pulmicort, clonidine, B12, iron, Lovenox, insulin, Cozaar, Protonix and Lyrica. LABORATORY DATA: We do not have recent labs today, but I reviewed old labs. Glucose 293. ASSESSMENT AND PLAN: Ms. Milagros Cintron is a 58-year-old lady with hypertensive urgency, blood pressure is getting better, uncontrolled diabetes mellitus, diabetic coronary artery disease, sleep apnea syndrome, hypoventilation syndrome, history of chronic obstructive pulmonary disease, should use bilevel positive airway pressure, working on that, on the case, Hammer Smith on the case. MiraLax was given. Physical therapy. Gastrointestinal and deep venous thrombosis prophylaxis. Repeat labs. Appreciated outside parts sales and computer systems information director input. Seen by horace Valdovinos , ruby developer also. We will followup. Glo Guajardo MD VERONICA
--- NOTE | 2018-11-23 20:21 | PN ---
DATE: 11/23/2018 HOSPITAL COURSE: Patient was seen and examined. I do agree with the note of the medical genetics director. I was involved in the plan of care. Patient had hypertension that was uncontrolled. Her blood pressure is better controlled. She had hydrochlorothiazide that was restarted. The patient does have diabetes that has been controlled. She has better control of her diabetes to prevent complications. She is on aspirin daily for her coronary artery disease. Patient is on Lipitor for dyslipidemia. She is on MiraLax for constipation. She is on heart-healthy diet. Her blood pressure will continued to be followed. I ordered serum renin and aldosterone level to rule out hypoaldosteronism. She had renal artery ultrasound that does not show stenosis. Her TSH is normal. Her calcium is normal. She most likely had essential hypertension. Konstantin Farah MD
[2018-11-23] MEDS: Pantoprazole 40 mg EC Tab PO SCH (21:21)
--- NOTE | 2018-11-24 02:25 | PN ---
DATE: 11/23/2018 SUBJECTIVE: The patient is a 58-year-old female. The patient is examined at the bedside on 11/23/2018, looking comfortable. Still a little bit depressed because she lost her father recently and history of admission in the Psych department. No fever. No chills. No hematuria. No hematochezia. No headache or dizziness. No chest pain or palpitation. PHYSICAL EXAMINATION: VITAL SIGNS: Blood pressure 150/70, pulse 70, temperature 98.2, oxygen saturation 96%. HEENT: Head: Normocephalic and atraumatic. Eyes: PERRLA. Extraocular muscles intact. Conjunctivae clear. Nose patent. Mucous membranes moist. NECK: Supple. No carotid bruits. No JVD or thyromegaly. CHEST: Bilaterally symmetrical. HEART: S1 and S2 positive. LUNGS: Clear to auscultation. ABDOMEN: Soft. Bowel sounds present. No organomegaly. EXTREMITIES: No edema. No cyanosis. NEUROLOGIC: The patient is awake, alert. Moving all four extremities. No focal deficits. MEDICATIONS: Norvasc, Lipitor, Pulmicort, clonidine, B12, Lovenox, hydrochlorothiazide, insulin, Xopenex, Cozaar, Protonix, MiraLax. LABORATORY DATA: We do not have recent labs today but I reviewed the old labs. Glucose 218. ASSESSMENT AND PLAN: Ms. Saida Linares is a 58-year-old female with hypertensive urgency, diabetes mellitus, coronary artery disease, sleep apnea syndrome, hypoventilation syndrome, history of chronic obstructive lung disease, asthma, history of depression, recently lost her father, that is why she really depressed. We called consulting Dr. Uzma Bhatia, on the case. Gastrointestinal and deep venous thrombosis prophylaxis. Repeat labs. We will follow up. Glo Guajardo MD MTDD
[2018-11-24] MEDS: Ipratropium 0.02% Inhal Soln (0.5 mg/2.5 ml) UD IH SCH ×4 (03:21→21:27)
[2018-11-24] MEDS: Budesonide 0.5 mg/2 ml Inhal Susp UD IH SCH ×2 (07:22→21:28)
--- NOTE | 2018-11-24 07:42 | CP.PCM.PN ---
Subjective - Date & Time of Evaluation Date of Evaluation: 11/24/18 Time of Evaluation: 06:35 - Subjective Subjective: Lying in bed, Awake, alert, No distress, Reason for consultation and follow up: Cardiac evaluation and follow up of uncontrolled hypertension, history of non obstructive coronary artery disease, hypertension, hyperlipidemia, diabetes Seen and examined by me and Dr. Schaffer Objective - Vital Signs/Intake and Output Vital Signs (last 24 hours): Temp Pulse Resp BP Pulse Ox 97.8 F 90 18 160/91 H 97 11/24/18 06:00 11/24/18 06:00 11/24/18 06:00 11/24/18 06:00 11/24/18 06:00 Intake and Output: 11/24/18 11/24/18 06:59 18:59 Intake Total 620 Balance 620 - Medications Medications: Current Medications Acetaminophen (Tylenol 325mg Tab) 650 mg PO Q6H PRN PRN Reason: Headache Amlodipine Besylate (Norvasc) 10 mg PO DAILY COUNTS INCLUDE 234 BEDS AT [facility] Last Admin: 11/23/18 11:19 Dose: 10 mg Aspirin (Ecotrin) 81 mg PO DAILY COUNTS INCLUDE 234 BEDS AT THE [facility] Last Admin: 11/23/18 11:18 Dose: 81 mg Atorvastatin Calcium (Lipitor) 40 mg PO DAILY COUNTS INCLUDE 234 BEDS AT THE [facility] Budesonide (Pulmicort Respules) 0.5 mg IH [id number] COUNTS INCLUDE 234 BEDS AT THE [facility] Last Admin: 11/24/18 07:22 Dose: 0.5 mg Clonidine HCl (Catapres-Tts3 0.3 Mg/24 Hr) 1 patch TD Q7D@1000 COUNTS INCLUDE 234 BEDS AT THE [facility] Last Admin: 11/22/18 18:27 Dose: 1 patch Cyanocobalamin (Vitamin B12 1000 Mcg/Ml Inj) 1,000 mcg IM DAILY COUNTS INCLUDE 234 BEDS AT THE [facility] Last Admin: 11/23/18 11:16 Dose: 1,000 mcg Enoxaparin Sodium (Lovenox) 40 mg SC DAILY COUNTS INCLUDE 234 BEDS AT THE [facility]; Protocol Last Admin: 11/23/18 11:16 Dose: 40 mg Hydralazine HCl (Apresoline) 10 mg IVP Q6 PRN PRN Reason: hypertension Last Admin: 11/23/18 03:06 Dose: 10 mg Hydrochlorothiazide (Hydrodiuril) 50 mg PO DAILY COUNTS INCLUDE 234 BEDS AT THE [facility] Insulin Human Regular (Humulin R) 0 units SC [facility] COUNTS INCLUDE 234 BEDS AT THE [facility]; Protocol Last Admin: 11/23/18 21:54 Dose: Not Given Insulin Lispro Protam/Lispro Human (Humalog Mix 75/25) 15 units SC ACBD COUNTS INCLUDE 234 BEDS AT THE [facility] Last Admin: 11/23/18 17:26 Dose: 15 u Ipratropium [place] (Atrovent) 0.5 mg IH [id number] COUNTS INCLUDE 234 BEDS AT THE [facility] Last Admin: 11/24/18 07:23 Dose: 0.5 mg Levalbuterol HCl (Xopenex) 0.63 mg IH [id number] PRN PRN Reason: Shortness of Breath Last Admin: 11/20/18 19:43 Dose: 0.63 mg Losartan Potassium (Cozaar) 100 mg PO DAILY COUNTS INCLUDE 234 BEDS AT THE [facility] Last Admin: 11/23/18 11:19 Dose: 100 mg Pantoprazole Sodium (Protonix Ec Tab) 40 mg PO HS COUNTS INCLUDE 234 BEDS AT THE [facility] Last Admin: 11/23/18 21:21 Dose: 40 mg Polyethylene Glycol (Miralax) 17 gm PO DAILY COUNTS INCLUDE 234 BEDS AT THE [facility] Last Admin: 11/23/18 11:18 Dose: Not Given Pregabalin (Lyrica) 100 mg PO HS COUNTS INCLUDE 234 BEDS AT THE [facility] Last Admin: 11/23/18 21:21 Dose: 100 mg Spironolactone (Aldactone) 50 mg PO DAILY COUNTS INCLUDE 234 BEDS AT THE [facility] Zolpidem Tartrate (Ambien) 5 mg PO HS PRN; Protocol PRN Reason: Insomnia Last Admin: 11/23/18 22:04 Dose: 5 mg - Labs Labs: 11/21/18 06:30 11/20/18 05:00 PT 11.3 SECONDS (9.4-12.5) 11/19/18 17:56 INR 1.02 11/19/18 17:56 APTT 41.2 Seconds (26.9-38.3) H 11/19/18 17:56 - Constitutional Appears: Non-toxic, No Acute Distress - Head Exam Head Exam: NORMAL INSPECTION, NORMOCEPHALIC - Eye Exam Eye Exam: Normal appearance Pupil Exam: NORMAL ACCOMODATION - ENT Exam ENT Exam: Mucous Membranes Moist, Normal Exam - Respiratory Exam Respiratory Exam: Decreased Breath Sounds, Clear to Ausculation Bilateral, NORMAL BREATHING PATTERN - Cardiovascular Exam Cardiovascular Exam: +S1, +S2 - GI/Abdominal Exam GI & Abdominal Exam: Soft, Normal Bowel Sounds - Extremities Exam Extremities Exam: Full ROM, Normal Capillary Refill - Neurological Exam Neurological Exam: Alert, Awake, Oriented x3 - Psychiatric Exam Psychiatric exam: Normal Affect, Normal Mood - Skin Skin Exam: Dry, Normal Color, Warm Assessment and Plan - Assessment and Plan (Free Text) Assessment: A 58 year old female who came in to the ER due to having R groin pain that she has been having over the past few weeks associated with nausea and vomiting. History of hypertension, hyperlipidemia, diabetes and non obstructive coronary artery disease, right rotator cuff (2015), gastric band (2007), gastric band replacement (2009), gastric band removal (2015), partial hysterectomy,(2006), to fatoumata hysterectomy and BSO, former smoker. On 10/12/18 had positive stress test showing anteroseptal anterolateral ischemia. Cardiac cath done on 10/21/2018 showed non obstructive coronary artery disease, distal circumflex 55% stenosis. Echo done on 10/12/18 showed LVEF 50-55%, mild to moderate LVH, mild mitral regurgitation, trace aortic and tricuspid regurgitation. CT of abdomen and pelvis done and showed hepatomegaly,distended gallbladder, diverticulosis, mild constipation. Uncontrolled hypertension, IV Hydralazine given in ER and Cardene drip. Stabilized. Pulmonary on consult. BiPAP/CPAP. Psych on consult for depression. Renal on consult. Renal ultrasound done and showed no renal stenosis. Plan: No distress, feels okay SBP 160's, adjusted antihypertensive medications yesterday will reevaluate after morning meds given Heart rate stable On Norvasc 10 mg daily, Clonidine 0.3 mg/24 hour patch, Hydrodiuril 50 mg daily Cozaar 100 mg daily, ASA 81 mg daily, Lipitor 10 mg daily, Lovenox 40 mg daily, Aldactone 50 mg daily Continue current medications Continue current management Control glucose Pulmonary on consult Psych evaluation/ consult Will follow up Plan and treatment discussed with Dr. Schaffer
[2018-11-24 07:58] LABS: BLOOD UREA NITROGEN 19 mg/dL (7-21); CALCIUM 8.9 mg/dL (8.4-10.5); GFR NON-AFRICAN AMERICAN 57
[2018-11-24] MEDS: Insulin Regular 1 UNITS/0.01 ML ML SC SCH ×4 (08:12→22:33)
[2018-11-24] MEDS: Insulin Lispro (humaLOG) MIX 75/25(10 ml) SC SCH ×2 (08:40→17:35)
[2018-11-24] MEDS: Enoxaparin 40 mg Syringe SC SCH (09:13)
[2018-11-24] MEDS: POLYETHYLENE GLYCOL 3350 17 GM/Dose PACKET PO SCH (09:14)
--- NOTE | 2018-11-24 13:25 | CP.PCM.PN ---
<Luciano Estrada - Last Filed: 11/24/18 13:25> Subjective - Date & Time of Evaluation Date of Evaluation: 11/24/18 Time of Evaluation: 13:23 - Subjective Subjective: Martinez Estrada PGY2 - Nephrology Progress Note for Dr. Farah Patient seen and examined this AM at bedside. Patient is noted to be resting comfortably in bed. She indicates her headache is improved. She denies chest pain, shortness of breath, abdominal pain, nausea, vomiting, fever, chills. Denies dizziness, vision changes, numbness, tingling. Objective - Vital Signs/Intake and Output Vital Signs (last 24 hours): Temp Pulse Resp BP Pulse Ox 97.8 F 70 18 145/65 97 11/24/18 06:00 11/24/18 11:23 11/24/18 06:00 11/24/18 11:23 11/24/18 06:00 Intake and Output: 11/24/18 11/24/18 06:59 18:59 Intake Total 620 Balance 620 - Medications Medications: Current Medications Acetaminophen (Tylenol 325mg Tab) 650 mg PO Q6H PRN PRN Reason: Headache Amlodipine Besylate (Norvasc) 10 mg PO DAILY [facility] Last Admin: 11/24/18 09:14 Dose: 10 mg Aspirin (Ecotrin) 81 mg PO DAILY [facility] Last Admin: 11/24/18 09:13 Dose: 81 mg Atorvastatin Calcium (Lipitor) 40 mg PO DAILY [facility] Last Admin: 11/24/18 09:13 Dose: 40 mg Budesonide (Pulmicort Respules) 0.5 mg IH [id number] [facility] Last Admin: 11/24/18 07:22 Dose: 0.5 mg Clonidine HCl (Catapres-Tts3 0.3 Mg/24 Hr) 1 patch TD Q7D@1000 [facility] Last Admin: 11/22/18 18:27 Dose: 1 patch Cyanocobalamin (Vitamin B12 1000 Mcg/Ml Inj) 1,000 mcg IM DAILY [facility] Last Admin: 11/24/18 09:13 Dose: 1,000 mcg Enoxaparin Sodium (Lovenox) 40 mg SC DAILY [facility]; Protocol Last Admin: 11/24/18 09:13 Dose: 40 mg Hydralazine HCl (Apresoline) 10 mg IVP Q6 PRN PRN Reason: hypertension Last Admin: 11/23/18 03:06 Dose: 10 mg Hydralazine HCl (Apresoline) 25 mg PO BID [facility] Last Admin: 11/24/18 11:23 Dose: 25 mg Hydrochlorothiazide (Hydrodiuril) 50 mg PO DAILY [facility] Last Admin: 11/24/18 09:14 Dose: 50 mg Insulin Human Regular (Humulin R) 0 units SC ACHS [facility]; Protocol Last Admin: 11/24/18 13:21 Dose: 1 units Insulin Lispro Protam/Lispro Human (Humalog Mix 75/25) 15 units SC ACBD [facility] Last Admin: 11/24/18 08:40 Dose: 15 u Ipratropium [place] (Atrovent) 0.5 mg IH [id number] [facility] Last Admin: 11/24/18 07:23 Dose: 0.5 mg Levalbuterol HCl (Xopenex) 0.63 mg IH [id number] PRN PRN Reason: Shortness of Breath Last Admin: 11/20/18 19:43 Dose: 0.63 mg Losartan Potassium (Cozaar) 100 mg PO DAILY [facility] Last Admin: 11/24/18 09:14 Dose: 100 mg Pantoprazole Sodium (Protonix Ec Tab) 40 mg PO HS [facility] Last Admin: 11/23/18 21:21 Dose: 40 mg Polyethylene Glycol (Miralax) 17 gm PO DAILY [facility] Last Admin: 11/24/18 09:14 Dose: 17 gm Pregabalin (Lyrica) 100 mg PO HS [facility] Last Admin: 11/23/18 21:21 Dose: 100 mg Spironolactone (Aldactone) 50 mg PO DAILY [facility] Last Admin: 11/24/18 09:14 Dose: 50 mg Zolpidem Tartrate (Ambien) 5 mg PO HS PRN; Protocol PRN Reason: Insomnia Last Admin: 11/23/18 22:04 Dose: 5 mg - Labs Labs: 11/21/18 06:30 11/24/18 07:20 PT 11.3 SECONDS (9.4-12.5) 11/19/18 17:56 INR 1.02 11/19/18 17:56 APTT 41.2 Seconds (26.9-38.3) H 11/19/18 17:56 - Constitutional Appears: No Acute Distress - Head Exam Head Exam: ATRAUMATIC, NORMOCEPHALIC - Eye Exam Eye Exam: EOMI, PERRL - ENT Exam ENT Exam: Mucous Membranes Moist - Neck Exam Neck Exam: Full ROM - Respiratory Exam Respiratory Exam: Clear to Ausculation Bilateral, NORMAL BREATHING PATTERN. absent: Rales, Rhonchi, Wheezes - Cardiovascular Exam Cardiovascular Exam: REGULAR RHYTHM, +S1, +S2 - GI/Abdominal Exam GI & Abdominal Exam: Soft, Normal Bowel Sounds. absent: Firm, Guarding, Rigid, Tenderness - Extremities Exam Extremities Exam: Full ROM. absent: Calf Tenderness, Pedal Edema - Neurological Exam Neurological Exam: Alert, Awake, CN II-XII Intact, Normal Gait, Oriented x3 Additional comments: motor and sensory grossly intact - Psychiatric Exam Psychiatric exam: Depressed - Skin Skin Exam: Dry, Warm Assessment and Plan - Assessment and Plan (Free Text) Assessment: 1.Hypertensive urgency 2.Resistant Hypertension 3.Diabetes Type 2 uncontrolled 4.Coronary artery disease 5.Dyslipidemia Patient blood pressure trended and appreciated. Her readings continue to show elevated pressures with systolic 160s and diastolic in the 90s. She is currently on max HCTZ, clonidine patch, losartan, amlodipine. Patient recently started on spironolactone. Will continue to trend patient's blood pressure as we await further testing including aldosterone and renin levels. Continue current DM2 management with insulin coverage and carb consistent diet. Continue aspirin and statin for CAD. Patient seen, case and plan discussed with attending, Dr. Farah <Konstantin Farah S - Last Filed: 11/24/18 14:50> Objective - Vital Signs/Intake and Output Vital Signs (last 24 hours): Temp Pulse Resp BP Pulse Ox 98.5 F 92 H 20 160/81 H 95 11/24/18 14:00 11/24/18 14:00 11/24/18 14:00 11/24/18 14:00 11/24/18 14:00 Intake and Output: 11/24/18 11/24/18 06:59 18:59 Intake Total 620 Balance 620 - Medications Medications: Current Medications Acetaminophen (Tylenol 325mg Tab) 650 mg PO Q6H PRN PRN Reason: Headache Amlodipine Besylate (Norvasc) 10 mg PO DAILY [facility] Last Admin: 11/24/18 09:14 Dose: 10 mg Aspirin (Ecotrin) 81 mg PO DAILY [facility] Last Admin: 11/24/18 09:13 Dose: 81 mg Atorvastatin Calcium (Lipitor) 40 mg PO DAILY [facility] Last Admin: 11/24/18 09:13 Dose: 40 mg Budesonide (Pulmicort Respules) 0.5 mg IH [id number] [facility] Last Admin: 11/24/18 07:22 Dose: 0.5 mg Clonidine HCl (Catapres-Tts3 0.3 Mg/24 Hr) 1 patch TD Q7D@1000 [facility] Last Admin: 11/22/18 18:27 Dose: 1 patch Cyanocobalamin (Vitamin B12 1000 Mcg/Ml Inj) 1,000 mcg IM DAILY [facility] Last Admin: 11/24/18 09:13 Dose: 1,000 mcg Enoxaparin Sodium (Lovenox) 40 mg SC DAILY [facility]; Protocol Last Admin: 11/24/18 09:13 Dose: 40 mg Hydralazine HCl (Apresoline) 10 mg IVP Q6 PRN PRN Reason: hypertension Last Admin: 11/23/18 03:06 Dose: 10 mg Hydralazine HCl (Apresoline) 25 mg PO BID [facility] Last Admin: 11/24/18 11:23 Dose: 25 mg Hydrochlorothiazide (Hydrodiuril) 50 mg PO DAILY [facility] Last Admin: 11/24/18 09:14 Dose: 50 mg Insulin Human Regular (Humulin R) 0 units SC ACHS [facility]; Protocol Last Admin: 11/24/18 13:21 Dose: 1 units Insulin Lispro Protam/Lispro Human (Humalog Mix 75/25) 15 units SC ACBD [facility] Last Admin: 11/24/18 08:40 Dose: 15 u Ipratropium [place] (Atrovent) 0.5 mg IH [id number] [facility] Last Admin: 11/24/18 13:37 Dose: 0.5 mg Levalbuterol HCl (Xopenex) 0.63 mg IH [id number] PRN PRN Reason: Shortness of Breath Last Admin: 11/20/18 19:43 Dose: 0.63 mg Losartan Potassium (Cozaar) 100 mg PO DAILY [facility] Last Admin: 11/24/18 09:14 Dose: 100 mg Pantoprazole Sodium (Protonix Ec Tab) 40 mg PO HS [facility] Last Admin: 11/23/18 21:21 Dose: 40 mg Polyethylene Glycol (Miralax) 17 gm PO DAILY [facility] Last Admin: 11/24/18 09:14 Dose: 17 gm Pregabalin (Lyrica) 100 mg PO HS [facility] Last Admin: 11/23/18 21:21 Dose: 100 mg Spironolactone (Aldactone) 50 mg PO DAILY [facility] Last Admin: 11/24/18 09:14 Dose: 50 mg Zolpidem Tartrate (Ambien) 5 mg PO HS PRN; Protocol PRN Reason: Insomnia Last Admin: 11/23/18 22:04 Dose: 5 mg - Labs Labs: 11/21/18 06:30 11/24/18 07:20 PT 11.3 SECONDS (9.4-12.5) 11/19/18 17:56 INR 1.02 11/19/18 17:56 APTT 41.2 Seconds (26.9-38.3) H 11/19/18 17:56 Assessment and Plan - Assessment and Plan (Free Text) Assessment: Pt seen and examined by me. I have reviewed the note of the medical lab technologist and I agree with it. I have discussed the assessment and plan with the resident. I have reviewed the medications and the last labs. Pt with elevated BP. She is on max dose of HCTZ. I agree with adding Spironolactone for her BP control. She will continue with her Losartan, Clonidine, and Amlodipine. She has uncontrolled DM-2. She is on Atorvastatin for her dyslipidemia.
--- NOTE | 2018-11-24 17:21 | PN ---
DATE: 11/24/2018 PULMONARY PROGRESS NOTE REFERRING PHYSICIAN: Glo Guajardo MD SUBJECTIVE: The patient is seen lying in bed. No acute distress. No overnight events reported. Reports not using CPAP machine last night. No headache, rhinitis, cough, shortness of breath, chest pain, abdominal pain, nausea, vomiting, diarrhea, leg pain or leg swelling reported. PHYSICAL EXAMINATION: GENERAL: No acute distress. VITAL SIGNS: Blood pressure 160/81, pulse 92, temperature 98.5, and oxygen saturation 95% on room air. HEENT: Moist mucous membranes. Mallampati score of 4. Crowded airway. NECK: Supple. No JVD. LUNGS: Fair air flow bilaterally CARDIOVASCULAR: S1 and S2. ABDOMEN: Soft, nontender. No distention. No organomegaly. EXTREMITIES: No bilateral lower extremity edema. NEUROLOGICAL: Awake, alert and verbal. Following commands. MEDICATIONS: Reviewed. Tylenol 650 every 6 hours p.r.n., Norvasc 10 mg daily, aspirin 81 mg daily, Lipitor 40 mg daily, Pulmicort 0.5 mg every 12 hours, Clonidine 1 patch every 7 days, vitamin B12 1000 mcg injection daily, Lovenox 40 mg subcutaneously daily, hydralazine 10 mg IV push every 6 hours p.r.n., hydralazine 25 mg twice a day, hydrochlorothiazide 50 mg daily, Humulin R sliding scale a.c. and at bedtime, Humalog mix 75/25 at 15 units subcutaneously a.c., Atrovent 0.5 mg inhalation every 6 hours, Xopenex 0.63 mg inhalation every 6 hours p.r.n., Cozaar 100 mg daily, Protonix 40 mg at bedtime, MiraLax 17 g daily, Lyrica 100 mg at bedtime, Spironolactone 50 mg daily, and Ambien 5 mg at bedtime p.r.n. LABORATORY DATA: Reviewed. Sodium 138, potassium 3.9, chloride 100, carbon dioxide 29, anion gap 13, BUN 19, creatinine 1, GFR greater than 60. POC glucose 192, random glucose 107, calcium 8.9. IMPRESSION AND PLAN: Hypertensive urgency, diabetes, coronary artery disease, obstructive sleep apnea syndrome, hypoventilation syndrome, history of chronic lung disease, and history of asthma. Continue to encourage continuous positive airway pressure use at bedtime, sleep apnea precaution, head of bed elevated at 45 degrees. Spoke with respiratory therapist. The patient will get nasal mask to try tonight with continuous positive airway pressure machine. Continue inhaled bronchodilators. Recommend the patient have attended sleep study as outpatient and full pulmonary function test as outpatient. This patient was seen and examined with Dr. Syed. Discussed assessment and plan as described above. This patient was seen and examined with Jacobo Howard, nurse practitioner. Discussed assessment and plan as described above. Thank you for this consult. We will follow with you. Jacobo Howard APN Nancy Syed MD VERONICA
--- NOTE | 2018-11-24 19:12 | CON ---
DATE OF CONSULTATION: 11/24/2018 HISTORY OF PRESENT ILLNESS: In short, the patient is a 58-year-old -[place] female with reported history of CHF, diabetes, hypertension. The patient was admitted on the medical side for right groin pain. Psych consult was called for evaluation of depressive symptoms. This engineering technical writer is very familiar with this patient from the previous admission to the psychiatric inpatient unit, which took place here in [place] in 2017. Back then, the patient was very depressed, which was related to the fact that the patient's had an affair. Back then, the patient was successfully treated and was discharged with a plan to follow up with Dr. Jose Paz's office and the family sessions in [facility]. The patient was seen today. The patient presented to be sleepy, easily arousable. The patient remembered this engineering technical writer. The patient reported that she was not doing so well, but the patient denied that she is hopeless or helpless. The patient denied that she hears any voices. She denied seeing anything unusual. The only concern the patient has right now is insomnia. 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 Risks, benefits, and alternatives of Sonata discussed with the patient. The patient is willing to try that medication. PHYSICAL EXAMINATION: VITAL SIGNS: Reviewed. Temperature 98.5, pulse is 92, blood pressure 160/81, respirations 20, oxygen saturation is 95. MEDICATIONS: Reviewed. The patient is on Norvasc, aspirin, Lipitor, Pulmicort, Catapres, vitamin B12, Lovenox, hydralazine, also Humulin, Atrovent, Xopenex, Cozaar, Protonix, MiraLax, Lyrica, Aldactone. This engineering technical writer discontinued Ambien and started Sonata. LABORATORY DATA: Labs reviewed. Microbiology reviewed. MENTAL STATUS EXAMINATION: The patient presented to be sleepy, but easily arousable, intermittent eye contact. Mood described depressed. Affect was constricted, minimally reactive. Thought process seems to be coherent and goal-directed. Thought content. The patient denied visual, auditory, or tactile hallucinations. Denied paranoid ideation. The patient denied thoughts of harming herself or others, denied intents or plan. Insight and judgment seemed to be fair. Impulse are well controlled. IMPRESSION: The patient seems to be in depressed mood, rule out mood disorder due to general medical condition, rule out adjustment disorder. PLAN: Sonata was started. The patient does not feel that she needs to be in the psychiatric inpatient unit as of now. The patient denied any thoughts of harming herself or others. We will follow up and advise accordingly. Should you have any questions give me a call back. Uzma Bhatia MD
[2018-11-24] MEDS: Pantoprazole 40 mg EC Tab PO SCH (22:36)
[2018-11-25] MEDS: Ipratropium 0.02% Inhal Soln (0.5 mg/2.5 ml) UD IH SCH ×3 (03:07→14:03)
--- NOTE | 2018-11-25 04:11 | PN ---
DATE: 11/24/2018 SUBJECTIVE: A 58-year-old female. The patient was admitted on 11/19/2018, with hypertensive urgency, elevated blood pressure. The patient has a medical history of diabetes mellitus, hypothyroidism, chronic anemia, acute cystitis, asthma, hypertension. The patient was seen at the bedside today. No acute distress apparent, seemed appropriate. Denies shortness of breath, palpitations, chest pain. PHYSICAL EXAMINATION VITAL SIGNS: Temperature 98.5, pulse rate 92, blood pressure 160/81. HEENT: Normocephalic. NECK: Normal inspection. Full range of motion. LUNGS: Respirations clear to auscultation. CARDIOVASCULAR: S1 and S2. GASTROINTESTINAL: Abdomen soft and nontender. Positive bowel sounds. EXTREMITIES: Without swelling. SKIN: Warm to touch. No edema noted. NEUROLOGIC: The patient is alert and awake. Cranial nerves II through XII intact. LABORATORY DATA: White blood cells 7.2, hemoglobin 12.1, hematocrit 38.1, platelet count 254. PT 11.3, INR 1.02. Sodium 138, potassium 3.9, BUN 19, random glucose 192, A1c not completed at this time, AST not completed at this time. ASSESSMENT AND PLAN: Saida Linares is a 58-year-old female who came in with elevated blood pressure, no acute distress apparent. The patient had no complaints of palpitations or chest pain.pt had h/o htn , depression, dm , anemia , hypothyradism ,tod . anemia , asthma , cystitis The patient is being followed by Cardiology and Pulmonology. We will continue to monitor. The patient's blood pressure has been a little bit elevated, last one was 160/81. She was seen by Cardiology. New medication hydralazine 25 mg was ordered twice a day. We will continue that and monitor blood pressure. We will follow up. pt was seen and examined by me late evening , all above is noted , agreed with treatment plan , d/d with wireless telegrapher and staff Mj Valencia APN Glo Guajardo MD MTDDemarcus
--- NOTE | 2018-11-25 04:58 | CP.PCM.PN ---
Subjective - Date & Time of Evaluation Date of Evaluation: 11/25/18 Time of Evaluation: 04:53 - Subjective Subjective: S: Patient was seen because Resident physician had ordered Benadryl 25 mg PO x 1. Patient states that seh can not fall asleep. She has Ativan 0.5 mg PO ordered and it is due at 3 AM, requests it now.(1:50AM) Received Sonata earlier which did not help her fall asleep. Has no other complaints. Pertinent medical record was reviewed. O: VSS. Not in distress. LUNGS: Normal breathing pattern. A:Insomnia/Anxiety. P:Will order Ativan 0.5 mg PO now. Nurse instructed. Objective - Vital Signs/Intake and Output Vital Signs (last 24 hours): Temp Pulse Resp BP Pulse Ox 98.3 F 78 18 156/84 H 98 11/24/18 22:00 11/25/18 00:10 11/24/18 22:00 11/24/18 22:00 11/24/18 22:00 Intake and Output: 11/24/18 11/25/18 18:59 06:59 Intake Total 720 Balance 720 - Medications Medications: Current Medications Acetaminophen (Tylenol 325mg Tab) 650 mg PO Q6H PRN PRN Reason: Headache Amlodipine Besylate (Norvasc) 10 mg PO DAILY [facility] Last Admin: 11/24/18 09:14 Dose: 10 mg Aspirin (Ecotrin) 81 mg PO DAILY [facility] Last Admin: 11/24/18 09:13 Dose: 81 mg Atorvastatin Calcium (Lipitor) 40 mg PO DAILY [facility] Last Admin: 11/24/18 09:13 Dose: 40 mg Budesonide (Pulmicort Respules) 0.5 mg IH [id number] [facility] Last Admin: 11/24/18 21:28 Dose: 0.5 mg Clonidine HCl (Catapres-Tts3 0.3 Mg/24 Hr) 1 patch TD Q7D@1000 [facility] Last Admin: 11/22/18 18:27 Dose: 1 patch Cyanocobalamin (Vitamin B12 1000 Mcg/Ml Inj) 1,000 mcg IM DAILY [facility] Last Admin: 11/24/18 09:13 Dose: 1,000 mcg Enoxaparin Sodium (Lovenox) 40 mg SC DAILY [facility]; Protocol Last Admin: 11/24/18 09:13 Dose: 40 mg Hydralazine HCl (Apresoline) 10 mg IVP Q6 PRN PRN Reason: hypertension Last Admin: 11/23/18 03:06 Dose: 10 mg Hydralazine HCl (Apresoline) 25 mg PO BID [facility] Last Admin: 11/24/18 17:35 Dose: 25 mg Hydrochlorothiazide (Hydrodiuril) 50 mg PO DAILY [facility] Last Admin: 11/24/18 09:14 Dose: 50 mg Insulin Human Regular (Humulin R) 0 units SC ACHS [facility]; Protocol Last Admin: 11/24/18 22:33 Dose: Not Given Insulin Lispro Protam/Lispro Human (Humalog Mix 75/25) 15 units SC ACBD [facility] Last Admin: 11/24/18 17:35 Dose: 15 u Ipratropium [place] (Atrovent) 0.5 mg IH [id number] [facility]ART[facility] Last Admin: 11/25/18 03:07 Dose: 0.5 mg Levalbuterol HCl (Xopenex) 0.63 mg IH [id number] PRN PRN Reason: Shortness of Breath Last Admin: 11/20/18 19:43 Dose: 0.63 mg Losartan Potassium (Cozaar) 100 mg PO DAILY [facility] Last Admin: 11/24/18 09:14 Dose: 100 mg Pantoprazole Sodium (Protonix Ec Tab) 40 mg PO HS [facility] Last Admin: 11/24/18 22:36 Dose: 40 mg Polyethylene Glycol (Miralax) 17 gm PO DAILY [facility] Last Admin: 11/24/18 09:14 Dose: 17 gm Pregabalin (Lyrica) 100 mg PO HS [facility] Last Admin: 11/24/18 22:36 Dose: 100 mg Spironolactone (Aldactone) 50 mg PO DAILY [facility] Last Admin: 11/24/18 09:14 Dose: 50 mg Zaleplon (Sonata) 5 mg PO HS [facility] Last Admin: 11/24/18 22:37 Dose: 5 mg - Labs Labs: 11/21/18 06:30 11/24/18 07:20 PT 11.3 SECONDS (9.4-12.5) 11/19/18 17:56 INR 1.02 11/19/18 17:56 APTT 41.2 Seconds (26.9-38.3) H 11/19/18 17:56
[2018-11-25 05:53] VITALS: BP 154/80; PULSE 81; RESP 20; TEMP 97.8; O2SAT 95
[2018-11-25] MEDS: Budesonide 0.5 mg/2 ml Inhal Susp UD IH SCH (07:48)
[2018-11-25] MEDS: Levalbuterol 0.63 MG/3 ML Inhal Soln UD IH PRN (07:48)
[2018-11-25] MEDS: Insulin Regular 1 UNITS/0.01 ML ML SC SCH ×2 (08:46→12:36)
[2018-11-25] MEDS: Insulin Lispro (humaLOG) MIX 75/25(10 ml) SC SCH (08:46)
[2018-11-25] MEDS: Enoxaparin 40 mg Syringe SC SCH (09:49)
[2018-11-25] MEDS: POLYETHYLENE GLYCOL 3350 17 GM/Dose PACKET PO SCH (09:50)
--- NOTE | 2018-11-25 13:19 | PN ---
DATE: 11/25/2018 PULMONARY PROGRESS NOTE REFERRING PHYSICIAN: Glo Guajardo MD SUBJECTIVE: The patient is seen lying in the bed. No acute distress. No overnight events reported. The patient reports using CPAP machine last night, but was only able to tolerate for a short amount of time. No headache, rhinitis, cough, shortness of breath, chest pain, abdominal pain, nausea, vomiting, diarrhea, leg pain or leg swelling reported. OBJECTIVE GENERAL: No acute distress. VITAL SIGNS: Blood pressure 124/80, pulse 81, temperature 97.8, and oxygen saturation 95% on room air. HEENT: Moist mucous membranes. Mallampati score of 4. Crowded airway. NECK: Supple. No JVD. LUNGS: Fair air flow bilaterally CARDIOVASCULAR: S1 and S2. ABDOMEN: Soft and nontender. No distention. No organomegaly. EXTREMITIES: No bilateral lower extremity edema. NEUROLOGICAL: Awake, alert and verbal. Following commands. MEDICATIONS: Reviewed. Tylenol 650 mg every 6 hours p.r.n., Norvasc 10 mg daily, aspirin 81 mg daily, Lipitor 40 mg daily, Pulmicort 0.5 mg inhalation every 12 hours, clonidine 0.3 mg patch every 7 days, vitamin B12 at 1000 mcg injection daily, Lovenox 40 mg subcutaneously daily, hydralazine 10 mg IV push every 6 hours p.r.n., hydralazine 25 mg twice a day, hydrochlorothiazide 50 mg daily, Humulin R subcutaneously a.c. and at bedtime, Humalog mix 75/25 at 15 units subcutaneously a.c., Atrovent 0.5 mg inhalation every 6 hours, Xopenex 0.63 mg inhalation every 6 hours p.r.n., Cozaar 100 mg daily, Protonix 40 mg at bedtime, MiraLax 17 g daily, Lyrica 100 mg at bedtime, Aldactone 50 mg daily and Sonata 5 mg at bedtime. LABORATORY DATA: POC glucose 189. IMPRESSION AND PLAN: Hypertensive urgency, diabetes mellitus, coronary artery disease, obstructive sleep apnea syndrome, hypoventilation syndrome, history of chronic lung disease and history of asthma. Continue to encourage continuous positive airway pressure use at bedtime, sleep apnea precaution, head of bed elevated at 45 degrees. Continue inhaled bronchodilators. The patient for possible discharge home today. We recommend the patient have attended sleep study and full pulmonary function test as outpatient. From pulmonary point of view, the patient is stable for discharge. This patient was seen and examined with Dr. Syed. Discussed assessment and plan as described above. This patient was seen and examined with Jacobo Howard, nurse practitioner. Discussed assessment and plan as described above. Thank you for this consult and we will follow with you. Jacobo Howard APN Nancy Syed MD MTD[facility]arcus
--- NOTE | 2018-11-25 14:39 | CP.PCM.PN ---
<Luciano Estrada - Last Filed: 11/25/18 14:39> Subjective - Date & Time of Evaluation Date of Evaluation: 11/25/18 Time of Evaluation: 08:15 - Subjective Subjective: Martinez Estrada PGY2 - Nephrology Progress Note for Dr. Farah Patient seen and examined this AM. No acute events reported overnight. Patient denies dizziness, headache, chagnes in vision, chest pain, shortness of breath, abdominal discomfort, nausea, vomiting, fever, chills. Objective - Vital Signs/Intake and Output Vital Signs (last 24 hours): Temp Pulse Resp BP Pulse Ox 97.8 F 81 20 154/80 H 95 11/25/18 06:00 11/25/18 06:00 11/25/18 06:00 11/25/18 09:49 11/25/18 06:00 Intake and Output: 11/25/18 11/25/18 06:59 18:59 Intake Total 620 Balance 620 - Medications Medications: Current Medications Acetaminophen (Tylenol 325mg Tab) 650 mg PO Q6H PRN PRN Reason: Headache Amlodipine Besylate (Norvasc) 10 mg PO DAILY [facility] Last Admin: 11/25/18 09:49 Dose: 10 mg Aspirin (Ecotrin) 81 mg PO DAILY [facility] Last Admin: 11/25/18 09:49 Dose: 81 mg Atorvastatin Calcium (Lipitor) 40 mg PO DAILY [facility] Last Admin: 11/25/18 09:48 Dose: 40 mg Budesonide (Pulmicort Respules) 0.5 mg IH [id number] [facility] Last Admin: 11/25/18 07:48 Dose: 0.5 mg Clonidine HCl (Catapres-Tts3 0.3 Mg/24 Hr) 1 patch TD Q7D@1000 [facility] Last Admin: 11/22/18 18:27 Dose: 1 patch Cyanocobalamin (Vitamin B12 1000 Mcg/Ml Inj) 1,000 mcg IM DAILY [facility] Last Admin: 11/25/18 09:50 Dose: 1,000 mcg Enoxaparin Sodium (Lovenox) 40 mg SC DAILY [facility]; Protocol Last Admin: 11/25/18 09:49 Dose: 40 mg Hydralazine HCl (Apresoline) 10 mg IVP Q6 PRN PRN Reason: hypertension Last Admin: 11/23/18 03:06 Dose: 10 mg Hydralazine HCl (Apresoline) 25 mg PO BID [facility] Last Admin: 11/25/18 09:49 Dose: 25 mg Hydrochlorothiazide (Hydrodiuril) 50 mg PO DAILY [facility] Last Admin: 11/25/18 09:48 Dose: 50 mg Insulin Human Regular (Humulin R) 0 units SC ACHS [facility]; Protocol Last Admin: 11/25/18 12:36 Dose: 1 units Insulin Lispro Protam/Lispro Human (Humalog Mix 75/25) 15 units SC ACBD [facility] Last Admin: 11/25/18 08:46 Dose: 15 u Ipratropium [place] (Atrovent) 0.5 mg IH [id number] [facility] Last Admin: 11/25/18 14:03 Dose: Not Given Levalbuterol HCl (Xopenex) 0.63 mg IH [id number] PRN PRN Reason: Shortness of Breath Last Admin: 11/25/18 07:48 Dose: 0.63 mg Losartan Potassium (Cozaar) 100 mg PO DAILY [facility] Last Admin: 11/25/18 09:49 Dose: 100 mg Pantoprazole Sodium (Protonix Ec Tab) 40 mg PO HS [facility] Last Admin: 11/24/18 22:36 Dose: 40 mg Polyethylene Glycol (Miralax) 17 gm PO DAILY [facility] Last Admin: 11/25/18 09:50 Dose: 17 gm Pregabalin (Lyrica) 100 mg PO HS [facility] Last Admin: 11/24/18 22:36 Dose: 100 mg Spironolactone (Aldactone) 50 mg PO DAILY [facility] Last Admin: 11/25/18 09:49 Dose: 50 mg Zaleplon (Sonata) 5 mg PO [facility] Last Admin: 11/24/18 22:37 Dose: 5 mg - Labs Labs: 11/21/18 06:30 11/24/18 07:20 PT 11.3 SECONDS (9.4-12.5) 11/19/18 17:56 INR 1.02 11/19/18 17:56 APTT 41.2 Seconds (26.9-38.3) H 11/19/18 17:56 - Constitutional Appears: No Acute Distress - Head Exam Head Exam: ATRAUMATIC, NORMOCEPHALIC - Eye Exam Eye Exam: EOMI, PERRL - ENT Exam ENT Exam: Mucous Membranes Moist - Neck Exam Neck Exam: Full ROM - Respiratory Exam Respiratory Exam: Clear to Ausculation Bilateral, NORMAL BREATHING PATTERN - GI/Abdominal Exam GI & Abdominal Exam: Soft, Normal Bowel Sounds - Extremities Exam Extremities Exam: Full ROM. absent: Calf Tenderness - Neurological Exam Neurological Exam: Alert, Awake, CN II-XII Intact, Oriented x3 Neuro motor strength exam: Left Upper Extremity: 5, Right Upper Extremity: 5, Left Lower Extremity: 5, Right Lower Extremity: 5 - Psychiatric Exam Psychiatric exam: Normal Mood - Skin Skin Exam: Dry, Warm Assessment and Plan - Assessment and Plan (Free Text) Assessment: #Hypertensive urgency #Resistant Hypertension #Diabetes Type 2 uncontrolled #Coronary artery disease #Dyslipidemia Patient blood pressure trended and appreciated. Patient BP improved over the past 24 hours but continues to be elevated with systolic 140s and diastolic 90s. She is currently on max HCTZ, clonidine patch, losartan, amlodipine. Patient recently started on spironolactone. Will continue to trend patient's blood pressure as we await further testing including aldosterone and renin levels. Continue current DM2 management with insulin coverage and carb consistent diet. Continue aspirin and statin for CAD. Patient seen, case and plan discussed with attending, Dr. Farah <Konstantin Farah S - Last Filed: 11/25/18 20:53> Objective - Vital Signs/Intake and Output Vital Signs (last 24 hours): Temp Pulse Resp BP Pulse Ox 97.8 F 81 20 154/80 H 95 11/25/18 06:00 11/25/18 06:00 11/25/18 06:00 11/25/18 09:49 11/25/18 06:00 Intake and Output: 11/25/18 11/26/18 18:59 06:59 Intake Total 620 Balance 620 - Labs Labs: 11/21/18 06:30 11/24/18 07:20 PT 11.3 SECONDS (9.4-12.5) 11/19/18 17:56 INR 1.02 11/19/18 17:56 APTT 41.2 Seconds (26.9-38.3) H 11/19/18 17:56 Assessment and Plan - Assessment and Plan (Free Text) Assessment: Pt seen and examined by me. I have reviewed the note of the medical referral coordinator and I agree with it. I have discussed the assessment and plan with the resident. I have reviewed the medications and the last labs.
--- NOTE | 2018-11-25 15:02 | PN ---
DATE: 11/25/2018 SUBJECTIVE: The patient was seen and examined at the bedside on 11/25/2018, looking comfortable. No fever, no chills. No hematuria, hematochezia. No headache, no dizziness. No chest pain. No palpitations. Having breakfast. As per the patient, "no events happened overnight. I am feeling better." PHYSICAL EXAMINATION: VITAL SIGNS: Temperature 97.8, pulse 81, blood pressure 154/80, and respiratory rate 20. HEENT: Head, normocephalic, atraumatic. Eyes, PERRLA. Extraocular muscles intact. Conjunctivae clear. Nose patent. NECK: Supple. No carotid bruit. No JVD or thyromegaly. CHEST: Bilaterally symmetrical. HEART: S1 and S2 positive. LUNGS: Clear to auscultation. ABDOMEN: Soft. Bowel sounds present. No organomegaly. EXTREMITIES: No edema. No cyanosis. NEUROLOGICAL: The patient is awake and alert, moving all 4 extremities. No focal deficits. MEDICATIONS: Aldactone, hydralazine, atorvastatin, Cozaar, Ecotrin, insulin, Lipitor, amlodipine, Sonata, and Tylenol. LABORATORY DATA: White blood cell count 7.2, hemoglobin 12.1, hematocrit 38.1, and platelets 254. Sodium 130, potassium 3.9, BUN 9, creatinine 1, and glucose 189. ASSESSMENT AND PLAN: The patient is a 58-year-old lady with history of anemia, diabetes mellitus, came with accelerated hypertension improved, history of depression, diabetes mellitus, anemia, hypothyroidism, obstructive sleep apnea, asthma, and cystitis. Resizer Operator and clinical training coordinator are on the case. The patient lost father recently and was feeling very down. Psychiatric consult with Dr. Bhatia. According to Dr. Bhatia, the patient looks like to be in depressed mood, rule out mood disorder due to general medical condition, rule out adjustment disorder. They started the Sonata. The patient does not feel that she needed to be in the psychiatric inpatient unit as of now. Denies thoughts of harming herself or others. We will follow up and advance accordingly. The patient has psychiatrist Dr. PACHECO as outpatient. She will follow up with primary care physician. Glo Guajardo MD [facility] # [phone] VERONICA
--- NOTE | 2018-11-25 20:15 | PN ---
DATE: 11/25/2018 SUBJECTIVE: The patient was seen today. The patient presents as much better to compared with yesterday. The patient was observed eating with good appetite. Hygiene is much better. The patient reported that she slept a little bit better on Sonata and she thinks that the increased dose might be helpful for her to improve sleep. The patient denied feeling of hopelessness or helplessness. The patient denied any psychotic symptoms. The patient denied thoughts of harming self or others. The patient reported if her symptoms will be worsening, she knows that she needs to follow up with Dr. Jose Paz whom she has good rapport with. Besides that, the patient expressed no concerns. The patient wants to go back home. The patient wants to take a couple of days off from work in order to start feeling better. PHYSICAL EXAMINATION: Vital signs; reviewed. The patient still has blood pressure elevated 154/80, but the patient reported that she will be discharged today. MEDICATIONS: Reviewed. This show card writer would advise to increase dose of Sonata to 10 mg at the nighttime. LABORATORY DATA: Labs reviewed. Blood gas reviewed. Chemistry reviewed. MENTAL STATUS EXAMINATION: The patient presented to be alert and oriented, pleasant, cooperative, good personal hygiene, good eye contact. Speech was normal rate, tone, quality and quantity. Mood described "I feel better." Affect was more reactive, mood congruent. Thought process seems to be coherent and goal directed. Thought content; the patient denied visual or tactile hallucinations, denied paranoid ideation. The patient denied thoughts of harming herself or others, denied intent or plan. Insight and judgment seems to be improving. Impulses are well controlled. IMPRESSION: As per history major depressive disorder. Right now, this show card writer would like to rule out adjustment disorder with depressed mood because the patient's father about a month ago, rule out pathological grief. PLAN: Continue current management. Continue current medications. Sonata needs to be increased to 10 mg at the nighttime. The patient has good rapport with Dr. Jose Paz, local psychiatrist. This show card writer will sign off. The patient posed no imminent danger to self or others. Should you have any questions, give me a call back. Uzma Bhatia MD [facility] # [phone]
--- NOTE | 2018-11-26 00:34 | PN ---
DATE: 11/25/2018 SUBJECTIVE: The patient was seen and examined. I do agree with the note of the medical practice administrator. I was involved in the plan of care. The patient has hypertensive urgency. The patient has been placed on multiple blood pressure medications hydrochlorothiazide, clonidine, losartan, amlodipine, and spironolactone. She is currently comfortable. She is probably going home today. She should continue her current regimen of medications. Her renin and aldosterone are pending and she may follow up as an outpatient for this. Konstantin Farah MD
[2018-11-26 17:26] LABS: ALDO/PRA RATIO 3.4 Ratio (0.9-28.9)
== END 2018-11-25 14:56 | disposition home or self-care (01) | DRG 305 ==
LOC: ED 17:00 → ERH 19:14 → CCU 23:50 → 5RSO 11-20 11:03
PROVIDERS: ADMIT Internal Medicine; ATTEND Internal Medicine
PROC: 5A09357 Assistance with Respiratory Ventilation, Less than 24 Consecutive Hours, Continuous Positive Airway Pressure (ICD-10-PCS; principal; 2018-11-21)
PROC: 5A09357 Assistance with Respiratory Ventilation, Less than 24 Consecutive Hours, Continuous Positive Airway Pressure (ICD-10-PCS; 2018-11-25)
DX: I16.0 Hypertensive urgency (principal); E11.65 Type 2 diabetes mellitus with hyperglycemia; I11.0 Hypertensive heart disease with heart failure; I50.9 Heart failure, unspecified; K57.90 Diverticulosis of intestine, part unspecified, without perforation or abscess without bleeding; K52.9 Noninfective gastroenteritis and colitis, unspecified; E53.8 Deficiency of other specified B group vitamins; R16.0 Hepatomegaly, not elsewhere classified; K82.8 Other specified diseases of gallbladder; G47.33 Obstructive sleep apnea (adult) (pediatric); D50.9 Iron deficiency anemia, unspecified; E78.00 Pure hypercholesterolemia, unspecified; E78.1 Pure hyperglyceridemia; I08.3 Combined rheumatic disorders of mitral, aortic and tricuspid valves; J44.9 Chronic obstructive pulmonary disease, unspecified; F32.9 Major depressive disorder, single episode, unspecified; F41.9 Anxiety disorder, unspecified; I25.10 Atherosclerotic heart disease of native coronary artery without angina pectoris; E78.5 Hyperlipidemia, unspecified; E03.9 Hypothyroidism, unspecified; Z87.891 Personal history of nicotine dependence; Z79.4 Long term (current) use of insulin; Z79.82 Long term (current) use of aspirin; Z98.84 Bariatric surgery status